=== PATIENT | female | born 1940 | race Caucasian/White ===

== ENCOUNTER → 2019-01-20 15:29 | Outpatient (CLI) | payer MEDICARE, SELFPAY ==
[2019-01-20 19:01] LABS: Campylobacter Not Detected (Not Detect); Clostridium difficile toxin AB Detected (Not Detect); Cryptosporidium Not Detected (Not Detect); Cyclospora cayetanensis Not Detected (Not Detect); Entamoeba histolytica Not Detected (Not Detect); Enteroaggregative E.coli Not Detected (Not Detect); Enteropathogenic E.coli Not Detected (Not Detect); Enterotoxigenic E.coli It/st Not Detected (Not Detect); Plesiomonsa shigelloides Not Detected (Not Detect); Salmonella Not Detected (Not Detect); Shiga-like toxin-prod E.coli Not Detected (Not Detect); Shigella/Enteroinvasive E.coli Not Detected (Not Detect); Vibrio Not Detected (Not Detect); Vibrio cholerae Not Detected (Not Detect); Yersinia enterocolitica Not Detected (Not Detect)
[2019-01-20 19:02] LABS: Adenovirus F 40/41 Not Detected (Not Detect); Astrovirus Not Detected (Not Detect); Giardia lamblia Not Detected (Not Detect); Norovirus GI/GII Not Detected (Not Detect); Rotavirus A Not Detected (Not Detect); Sapovirus Not Detected (Not Detect)
== END ==
PROVIDERS: PCP Nurse Practitioner Family; Visit Provider Nurse Practitioner Family
DX: Z86.19 Personal history of other infectious and parasitic diseases (principal)
CPT/HCPCS: 87045; 87507; 87899

== ENCOUNTER 2019-07-20 19:17 | Emergency (ER) | payer MEDICARE, SELFPAY ==
[2019-07-20 19:24] VITALS: BP 158/81; PULSE 85; RESP 16; TEMP 36.7; O2SAT 94
[2019-07-20] MEDS: AMOXICILLIN/CLAV 875/125 MG 1 TAB PO (19:55)
[2019-07-20 20:16] VITALS: BP 152/84; PULSE 84; RESP 16; O2SAT 97
--- NOTE | 2019-07-20 20:17 | PC.NURSE ---
Pt has a L upper partial that has fallen out and now presents with pain, mouth swelling. afebrile. does not have dentist at this time. evaluated by KAM Tian. medicated per DEC.
--- NOTE | 2019-07-21 00:31 | ED.DENTAL ---
HPI - Dental/Oral <RIA Matson - Last Filed: 07/21/19 00:42> General Chief complaint: Dental/Oral Stated complaint: POSSIBLE INFECTION IN MOUTH Time Seen by Provider: 07/20/19 19:29 Source: patient Mode of arrival: Ambulatory Limitations: no limitations History of Present Illness HPI Narrative: This is a pleasant 78-year-old female, current smoker, who presents to ED with left facial erythema, edema, discomfort for 2 days. Patient reports her partial denture fell out on affected site and reports gum swelling, pain with partial tooth on left upper mouth. Patient denies fever, chills, nausea or vomiting. Patient has been taking Excedrin at home for discomfort along Orajel. Patient does not have dentist currently. Related Data Home Medications Medication Instructions Recorded Confirmed calcium polycarbophil [FiberCon] 2 tab PO BID #0 10/27/16 fluoxetine 30 mg PO QDAY #0 09/01/17 Previous Rx's Medication Instructions Recorded albuterol sulfate [Ventolin HFA] 2 puff INH Q2HP PRN #1 ea 10/28/16 tiotropium bromide [Spiriva with 1 puff INH QDAY #1 ea 10/28/16 HandiHaler] meclizine [Bonine] 1 - 2 tab PO Q8HP PRN #12 12/23/17 ondansetron [Zofran ODT] 4 mg SUBLINGUAL Q6HP PRN #5 odt 12/23/17 amoxicillin-pot clavulanate 1 tab PO BID 7 Days #14 tab 07/20/19 [Augmentin] Review of Systems <RIA Matson - Last Filed: 07/21/19 00:42> Review of Systems ROS Unobtainable: All systems reviewed & are unremarkable except as noted in HPI and below Patient History <RIA Matson - Last Filed: 07/21/19 00:42> Medical History C. difficile diarrhea (Acute) Colitis (Acute) Social History Smoking Status: Current every day smoker Social History Smoking Status: Current every day smoker Substance Use Type: does not use Exam <RIA Matson - Last Filed: 07/21/19 00:42> Narrative Exam Narrative: General appearance: well developed, well nourished, in no acute distress. Head: normocephalic, atraumatic, no scalp lesions, non-tender. Eye: pupil equal, round. EOMI. Nose: nares patent. Oral: mucosa moist. L side upper gingivitis with erythema, swelling. L upper mouth with dental caries with small partial and a tooth which is discolored in deep yellow. Neck/Thyroid: neck supple, full range of motion, no visible masses. Skin: L side face with moderate edema, erythema and mild warmth to touch. No suspicious rashes, lesions over other visible areas. Warm and dry. Heart: no clubbing, no cyanosis, no edema. Lungs: Breathing even and unlabored. No stridor. No accessory muscles used. Chest: normal shape and expansion. Abdomen: non-obese, non-distended. Neurologic: alert and oriented. Cognitive exam, PEDIATRICIAN/MEDICAL DOCTOR and PNS grossly intact on informal exam. Psych: good eye contact, normal affect. Initial Vital Signs Initial Vital Signs: Vital Signs Temperature 98.1 F 07/20/19 19:24 Pulse Rate 85 07/20/19 19:24 Respiratory Rate 16 07/20/19 19:24 Blood Pressure 158/81 H 07/20/19 19:24 Pulse Oximetry 94 07/20/19 19:24 <Bhavin Moreno DO - Last Filed: 07/21/19 02:16> Initial Vital Signs Initial Vital Signs: Vital Signs Temperature 98.1 F 07/20/19 19:24 Pulse Rate 85 07/20/19 19:24 Respiratory Rate 16 07/20/19 19:24 Blood Pressure 158/81 H 07/20/19 19:24 Pulse Oximetry 94 07/20/19 19:24 Course <RIA Matson - Last Filed: 07/21/19 00:42> Orders Ordered: Discontinued Medications Amoxicillin/Clavulanate Potassium (Augmentin 875-125 Mg) 1 tab PO NOW ONE Stop: 07/20/19 19:48 Last Admin: 07/20/19 19:55 Dose: 1 tab Documented by: TEREZA Vital Signs Vital signs: Vital Signs - 8 hr 07/20/19 19:24 07/20/19 20:16 Temperature 98.1 F Pulse Rate 85 84 Respiratory Rate 16 16 Blood Pressure 152/84 H Blood Pressure [Right Arm] 158/81 H Pulse Oximetry 94 97 <Bhavin Moreno DO - Last Filed: 07/21/19 02:16> Orders Ordered: Discontinued Medications Amoxicillin/Clavulanate Potassium (Augmentin 875-125 Mg) 1 tab PO NOW ONE Stop: 07/20/19 19:48 Last Admin: 07/20/19 19:55 Dose: 1 tab Documented by: TEREZA Vital Signs Vital signs: Vital Signs - 8 hr 07/20/19 19:24 07/20/19 20:16 Temperature 98.1 F Pulse Rate 85 84 Respiratory Rate 16 16 Blood Pressure 152/84 H Blood Pressure [Right Arm] 158/81 H Pulse Oximetry 94 97 MDM - Dental/Oral <Jaylan ChavezRIA Gotti - Last Filed: 07/21/19 00:42> Differential Diagnosis Differential diagnosis: Likely gingival abscess, dental caries, dental abscess and fracture of tooth Medical Records Attestation: I reviewed the patient's medical records. MDM Narrative Medical decision making narrative: This is a pleasant 78-year-old female who presents to ED with odontogenic infection in right upper mouth with right-sided facial swelling, redness and warmth for last 2 days. Patient does not have constitutional symptoms. Patient was medicated with 1st dose of Augmentin while in ED which patient family member prefers to take over penicillin 4 times a day. Patient was discharged to home with the remaining does for 7 day course. The patient's granddaughter states will find a dentist to follow up for an evaluation. Return precautions were discussed with the patient verbalized understanding. Patient and granddaughter agrees with the treatment plan. Discharge Plan Departure Patient Disposition: Home Clinical Impression: Dental infection Discharge Date/Time: 07/20/19 20:16 Instructions: DI for Tooth Decay Activity Restrictions/Additional Instructions: You have been diagnosed with [odontogenic infection ]. What to do: *Take your medications as directed. Please take antibiotic medication twice a day for next 7 days. Please incorporate probiotics while on antibiotic medication. *Follow up with your dentist in 2-3 days, call for an appointment. Let them know you were seen in the ED and that we asked you to be seen in follow up. *Return to ED if you have any new, worsening, or concerning symptoms, such as [worsening pain, fever, swelling and redness spreading to her face, breathing difficulty, chest pain, nausea/vomiting/diarrhea or any acute concerns]. Prescriptions: New amoxicillin-pot clavulanate [Augmentin] 875-125 mg tablet 1 tab PO BID 7 Days Qty: 14 RF: 0 No Action calcium polycarbophil [FiberCon] 625 MG tablet 2 tab PO BID Qty: 0 RF: 0 albuterol sulfate [Ventolin HFA] 90 MCG/PUFF HFA aerosol inhaler 2 puff INH Q2HP PRNQty: 1 RF: 0 tiotropium bromide [Spiriva with HandiHaler] 18 MCG capsule, w/inhalation device 1 puff INH QDAY Qty: 1 RF: 0 fluoxetine 10 MG tablet 30 mg PO QDAY Qty: 0 RF: 0 meclizine [Bonine] 25 MG tablet,chewable 1 - 2 tab PO Q8HP PRNQty: 12 RF: 0 ondansetron [Zofran ODT] 4 MG tablet,disintegrating 4 mg Sublingual Q6HP PRNQty: 5 RF: 0 Referrals: [facility] [Provider Group] Clarisse Ontiveros ARNP [Primary Care Provider] -
== END 2019-07-20 20:16 | disposition home or self-care (01) ==
PROVIDERS: Emergency Provider Nurse Practitioner Family; Family Provider Nurse Practitioner Family; PCP Nurse Practitioner Family
DX: K04.7 Periapical abscess without sinus (principal)
CPT/HCPCS: 99282; 99283

== ENCOUNTER → 2021-12-09 11:42 | Outpatient (CLI) | payer MEDICARE, SELFPAY ==
--- NOTE | 2021-12-09 11:44 | DI.RAD.S_ITS ---
PROCEDURE: XR SACRUM COCCYX MIN 2V INDICATIONS: low back pain TECHNIQUE: 3 views of the sacrum and coccyx acquired. COMPARISON: None. FINDINGS: Bones: No fractures or dislocations. No suspicious bony lesions. Degenerative arthropathy noted in the lower lumbosacral spine Soft tissues: Visualized bowel gas pattern is normal. No suspicious soft tissue densities. Atherosclerotic vascular calcification noted. IMPRESSION: Degenerative arthropathy without fracture or lytic lesion. Approved by: Richard Spaulding M.D. on 12/09/2021 at 11:53
--- NOTE | 2021-12-09 11:44 | DI.RAD.S_ITS ---
PROCEDURE: XR LUMBAR SPINE 2-3V INDICATIONS: low back pain TECHNIQUE: 3 views of the lumbar spine were acquired. COMPARISON: [facility], , L-SPINE 2-3 VIEWS, 03/29/2007, 15:41. FINDINGS: Bones: Vertebral body height is maintained. Normal bone mineralization. Hypertrophic facet joints present throughout the exam results in grade 1 anterior spondylolisthesis at L4-5, increased from the prior. Moderate disc space narrowing in the mid lumbar spine noted. Convex right thoracolumbar scoliosis present. Soft tissues: Overlying bowel gas pattern is normal. No suspicious soft tissue calcifications. Atherosclerotic calcification in the abdominal aorta noted without evidence of aneurysm. IMPRESSION: Degenerative disc disease and arthropathy results in grade 1 anterior spondylolisthesis at L4-5 and thoracolumbar dextroscoliosis, increased from the prior Approved by: Richard Spaulding M.D. on 12/09/2021 at 11:33
== END ==
PROVIDERS: Family Provider Nurse Practitioner Family; PCP Student in an Organized Health Care Education/Training Program; Referring Provider Nurse Practitioner Family; Visit Provider Nurse Practitioner Family
DX: M51.36 Other intervertebral disc degeneration, lumbar region (principal); M47.816 Spondylosis without myelopathy or radiculopathy, lumbar region; M47.817 Spondylosis without myelopathy or radiculopathy, lumbosacral region; M43.16 Spondylolisthesis, lumbar region; M41.85 Other forms of scoliosis, thoracolumbar region; M54.50 Low back pain, unspecified
CPT/HCPCS: 72100; 72220

== ENCOUNTER 2022-02-21 10:36 | Inpatient (IN) | payer MEDICARE, SELFPAY ==
[2022-02-21] VITALS (28 sets, daily range): BP systolic 123–192; BP diastolic 50–112; PULSE 82–97; RESP 14–53; TEMP 36.6–36.8; O2SAT 87–97; BMI 17.2; BMI 17.6
--- NOTE | 2022-02-21 11:02 | ED_ITS ---
HPI - SOB/Dyspnea General Chief Complaint: Shortness of Breath/Dyspnea Stated Complaint: COPD/ Pneumonia 2 WEEKS AGO SOB Time Seen by Provider: 02/21/22 10:49 History of Present Illness HPI Narrative: Patient is a 81-year-old female history of COPD she has oxygen at home as needed, presents today with increasing shortness of breath. She was diagnosed with pneumonia at her primary care provider's office on 01/31/2022 she was put on 10 days of Levaquin. She says she finished her course antibiotics and was feeling better. However throughout the night last night she had increasing sh ortness of breath and difficulty breathing. It is significantly worse with exertion. She does continue to have a cough. She has had low-grade fever of 100. She denies any orthopnea. She is having some chest tightness, and it goes through to her back. Related Data Home Medications Medication Instructions Recorded Confirmed calcium polycarbophil 625 mg 2 tab PO BID #0 10/27/16 12/09/21 tablet (FiberCon) fluoxetine 10 mg tablet 30 mg PO QDAY #0 09/01/17 12/09/21 aspirin 81 mg tablet,delayed 81 mg PO DAILY 12/09/21 12/09/21 release (Adult Aspirin Regimen) omeprazole 20 mg capsule,delayed 20 mg PO DAILY 12/09/21 12/09/21 release rosuvastatin 5 mg tablet 5 mg PO DAILY 12/09/21 12/09/21 Previous Rx's Medication Instructions Recorded albuterol sulfate 90 mcg/actuation 2 puff INH Q2HP PRN #1 ea 10/28/16 aerosol inhaler (Ventolin HFA) tiotropium bromide 18 mcg capsule 1 puff INH QDAY #1 ea 10/28/16 with inhalation device (Spiriva with HandiHaler) meclizine 25 mg chewable tablet 1 - 2 tab PO Q8HP PRN #12 12/23/17 (Bonine) ondansetron 4 mg disintegrating 4 mg SUBLINGUAL Q6HP PRN #5 odt 12/23/17 tablet (Zofran ODT) Allergies Allergy/AdvReac Type Severity Reaction Status Date / Time No Known Drug Allergies Allergy Unverified 12/09/21 11:21 Review of Systems Review of Systems Narrative: GENERAL: Denies chills, fatigue, malaise, fever, sweats, travel HEENT: Denies sinus pain, ear pain, sore throat, difficulty swallowing, neck pain RESPIRATORY: See HPI CARDIOVASCULAR: See HPI GASTROINTESTINAL: Denies nausea, vomiting, abdominal pain, diarrhea, constipation, melena. : Denies dysuria, frequency, incontinence, hematuria, urinary retention, flank pain. MUSCULOSKELETAL: Denies weakness, joint pain, or bony pain SKIN: No rash, no erythema, no pruritus NEUROLOGIC: Denies weakness, dizziness, headache, numbness, change in speech, confusion PSYCHIATRIC: No concerning psychosocial issues. 12 point review of systems is negative except for those stated above and HPI Patient History Medical History C. difficile diarrhea Colitis Social History household members: family Smoking Status: Current every day smoker alcohol intake: current Smoking Status: Current every day smoker Substance Use Type: does not use Exam Initial Vital Signs Initial Vital Signs: Vital Signs Temperature 98.3 F 02/21/22 10:36 Pulse Rate 90 02/21/22 10:36 Respiratory Rate 18 02/21/22 10:36 Blood Pressure 123/63 02/21/22 10:36 Pulse Oximetry 88 L 02/21/22 10:36 GENERAL: Thin 81-year-old female [id number] respiratory distress HEENT: Head atraumatic,EOMI, pupils reactive, face symmetric, moist mucous mem branes CARDIOVASCULAR: Regular rate and rhythm without murmurs, rubs or gallops. RESPIRATORY: Mild tachypnea decreased breath sounds bilaterally no wheezing or rales ABDOMEN: Soft, nontender. Normoactive bowel sounds all 4 quadrants. No guarding or rebound. EXTREMITIES: Normal range of motion, no clubbing or edema. Neurovascularly intact NEUROLOGICAL: Alert and oriented x4.Normal gait and speech. SKIN: Warm, dry, no laceration, no petechiae, no rashes or lesions. Course Orders Ordered: ED Orders 02/21/22 11:03 XR chest 1V Stat EKG-12 Lead Stat 02/21/22 11:05 Blood Culture Stat 02/21/22 13:10 Respiratory Panel (Film Array) Stat Acetaminophen (Acetaminophen 325 Mg Tablet) 650 mg PO Q6HR PRN PRN Reason: Fever Al Hydrox/Mg Hydrox/Simethicone (Mag Hydrox/Alum/Simeth 30 Ml Udc) 30 ml PO Q6HR PRN PRN Reason: Dyspepsia Albuterol (Albuterol 2.5 Mg/3 Ml Neb (Adult)) 2.5 mg INH [id number] PRN PRN Reason: Shortness Of Breath Azithromycin (Azithromycin 250 Mg Tablet) 250 mg PO DAILY [facility] Stop: 02/25/22 17:00 Bisacodyl (Bisacodyl 10 Mg Supp) 10 mg HI DAILY PRN PRN Reason: Constipation Calcium Carbonate (Calcium Carbonate 500 Mg Tab) 1,000 mg PO Q4HR PRN PRN Reason: Dyspepsia Docusate Sodium (Docusate 100 Mg Capsule) 100 mg PO BID [facility] Enoxaparin Sodium (Enoxaparin 40 Mg/0.4 Ml Syringe) 40 mg SUBCUT DAILY [facility] Fluoxetine HCl (Fluoxetine 20 Mg Capsule) 40 mg PO DAILY [facility] Gabapentin (Gabapentin 100 Mg Capsule) 100 mg PO BEDTIME [facility] Ceftriaxone Sodium 1,000 mg/ (Sodium Chloride) 100 mls @ 200 mls/hr IV Q24H [facility] Ibuprofen (Ibuprofen 600 Mg Tablet) 600 mg PO Q8HR PRN PRN Reason: Pain, Mild (1-3) Magnesium Hydroxide (Magnesium Hydroxide 30 Ml Udc) 30 ml PO DAILY PRN PRN Reason: Constipation Methylprednisolone (Methylprednisolone 125 Mg/2 Ml Vial) 60 mg IV Q8H [facility] Naloxone HCl (Naloxone 0.4 Mg/Ml Vial) 0.2 mg IV Q2MIN PRN PRN Reason: Opiate Reversal Ondansetron HCl (Ondansetron 4 Mg Odt) 4 mg PO Q8HR PRN PRN Reason: Nausea And Vomiting Ondansetron HCl (Ondansetron 4 Mg/2 Ml Inj) 4 mg IV Q8HR PRN PRN Reason: Nausea And Vomiting Pantoprazole Sodium (Pantoprazole Dr 20 Mg Tablet) 20 mg PO 0600 [facility] Sennosides (Sennosides 8.6 Mg Tablet) 17.2 mg PO BEDTIME [facility] Tramadol HCl (Tramadol 50 Mg Tablet) 50 mg PO Q4H PRN PRN Reason: Pain, Moderate (4-6) Discontinued Medications Albuterol (Albuterol 2.5 Mg/3 Ml Neb (Adult)) 2.5 mg INH NOW ONE Stop: 02/21/22 12:46 Last Admin: 02/21/22 13:15 Dose: 2.5 mg Documented by: JAYY Albuterol/Ipratropium (Albuterol/Ipratropium 3 Ml Ampul) 3 ml INH NOW ONE Stop: 02/21/22 11:04 Last Admin: 02/21/22 11:23 Dose: 3 ml Documented by: EVERETT Ceftriaxone Sodium 2,000 mg/ (Sodium Chloride) 100 mls @ 200 mls/hr IV NOW ONE Stop: 02/21/22 13:27 Last Infusion: 02/21/22 14:35 Dose: 0 mls/hr Documented by: Admin: 02/21/22 13:38 Dose: 200 mls/hr Documented by: BERTHAXTO Azithromycin 500 mg/ Dextrose 250 mls @ 250 mls/hr IV NOW ONE Stop: 02/21/22 13:27 Last Infusion: 02/21/22 15:00 Dose: 0 mls/hr Documented by: Admin: 02/21/22 13:37 Dose: 250 mls/hr Documented by: BERTHAXTO Sodium Chloride (Normal Saline 0.9%) 1,000 mls @ 125 mls/hr IV CONT SHAI Last Infusion: 02/21/22 18:33 Dose: 0 mls/hr Documented by: Admin: 02/21/22 13:40 Dose: 125 mls/hr Documented by: BERTHAXTO Methylprednisolone (Methylprednisolone 125 Mg/2 Ml Vial) 125 mg IV NOW ONE Stop: 02/21/22 11:04 Last Admin: 02/21/22 11:26 Dose: 125 mg Documented by: YUE Vital Signs Vital signs: Vital Signs - 8 hr 02/21/22 12:00 02/21/22 12:30 02/21/22 13:00 Pulse Rate 85 86 86 Respiratory Rate 24 26 H 26 H Blood Pressure 138/90 135/60 137/63 Pulse Oximetry 93 94 91 02/21/22 13:14 02/21/22 13:15 02/21/22 13:17 Pulse Rate 90 90 Respiratory Rate 24 24 Blood Pressure Pulse Oximetry 87 L 87 L 94 02/21/22 13:30 Pulse Rate 85 Respiratory Rate 23 Blood Pressure 133/60 Pulse Oximetry 95 MDM - SOB/Dyspnea Lab Data Result diagrams: 02/21/22 10:36 02/21/22 10:36 Labs: Lab Results 02/21/22 02/21/22 02/21/22 Range/Units 10:36 10:36 10:36 WBC 19.4 H (4.5-11.0) X10^3/uL RBC 4.00 (4.0-5.2) X10^6/uL Hgb 12.6 (12.0-16.0) g/dL Hct 36.8 (36-46) % MCV 91.9 (80-100) fL MCH 31.5 (26-34) PG MCHC 34.3 (30-36) % RDW 13.2 (11.6-14.8) % Plt Count 213 (150-400) X10^3/uL Neut % (Auto) 87.9 H (50-75) % Lymph % (Auto) 8.1 L (25-40) % [place] % (Auto) 3.8 (3-14) % Eos % (Auto) 0.0 L (2-4) % Baso % (Auto) 0.2 (0-2) % Neut # (Auto) 93213 H (6719-4425) /uL Lymph # (Auto) 1600 (2380-9465) /uL [place] # (Auto) 700 (0-900) /uL Eos # (Auto) 0 (0-450) /uL Baso # (Auto) 0 (0-100) /uL Sodium 135 L (137-145) mmol/L Potassium 3.7 (3.4-5.1) mmol/L Chloride 104 (98-107) mmol/L Carbon Dioxide 25 (22-32) mmol/L BUN 16 (7-17) mg/dL Creatinine 0.51 L (0.52-1.04) mg/dL Estimated GFR > 60 (>60) mL/min BUN/Creatinine Ratio 31.4 H (6-22) Glucose 113 H (80-110) mg/dL Lactate 1.6 (0.7-2.1) mmol/L Calcium 9.3 (8.4-10.2) mg/dL Total Bilirubin 0.8 (0.2-1.3) mg/dL AST 28 (14-36) IU/L ALT 17 (<35) IU/L Alkaline Phosphatase 71 (38-126) U/L Total Creatine Kinase 21 L (30-135) U/L CK-MB (CK-2) TNP CK-MB (CK-2) Rel Index TNP Troponin I < 0.012 (0.01-0.034) ng/mL NT-Pro-B Natriuret Pep 247 (<450) pg/mL Total Protein 6.7 (6.3-8.2) g/dL Albumin 4.0 (3.5-5.0) g/dL Globulin 2.7 (1.7-4.1) g/dL Albumin/Globulin Ratio 1.5 (1.0-2.8) Lipase 16 L (23-300) U/L Procalcitonin (<0.5) ng/mL Chlamy pneumoniae PCR (Not Detect) Adenovirus (PCR) (Not Detect) B. pertussis DNA (PCR) (Not Detecte) B.parapertussis DNA PCR (Not Detecte) Coronavirus OC43 (PCR) (Not Detect) Coronavirus HKU1 (PCR) (Not Detect) Coronavirus 229E (PCR) (Not Detect) SARS-CoV-2 (PCR) (Negative) Coronavirus NL63 (PCR) (Not Detect) Human Metapneumovir PCR (Not Detect) Influenza Type A (PCR) (Not Detect) Influenza Type B (PCR) (Not Detect) M. pneumoniae (PCR) (Not Detect) Parainfluenza 1 (PCR) (Not Detect) Parainfluenza 2 (PCR) (Not Detect) Parainfluenza 3 (PCR) (Not Detect) Parainfluenza 4 (PCR) (Not Detect) RSV (PCR) (Not Detect) Entero/Rhino (PCR) (Not Detect) 02/21/22 02/21/22 02/21/22 Range/Units 10:36 10:52 13:10 WBC (4.5-11.0) X10^3/uL RBC (4.0-5.2) X10^6/uL Hgb (12.0-16.0) g/dL Hct (36-46) % MCV (80-100) fL MCH (26-34) PG MCHC (30-36) % RDW (11.6-14.8) % Plt Count (150-400) X10^3/uL Neut % (Auto) (50-75) % Lymph % (Auto) (25-40) % [place] % (Auto) (3-14) % Eos % (Auto) (2-4) % Baso % (Auto) (0-2) % Neut # (Auto) (4780-3370) /uL Lymph # (Auto) (6960-8622) /uL [place] # (Auto) (0-900) /uL Eos # (Auto) (0-450) /uL Baso # (Auto) (0-100) /uL Sodium (137-145) mmol/L Potassium (3.4-5.1) mmol/L Chloride (98-107) mmol/L Carbon Dioxide (22-32) mmol/L BUN (7-17) mg/dL Creatinine (0.52-1.04) mg/dL Estimated GFR (>60) mL/min BUN/Creatinine Ratio (6-22) Glucose (80-110) mg/dL Lactate (0.7-2.1) mmol/L Calcium (8.4-10.2) mg/dL Total Bilirubin (0.2-1.3) mg/dL AST (14-36) IU/L ALT (<35) IU/L Alkaline Phosphatase (38-126) U/L Total Creatine Kinase (30-135) U/L CK-MB (CK-2) CK-MB (CK-2) Rel Index Troponin I (0.01-0.034) ng/mL NT-Pro-B Natriuret Pep (<450) pg/mL Total Protein (6.3-8.2) g/dL Albumin (3.5-5.0) g/dL Globulin (1.7-4.1) g/dL Albumin/Globulin Ratio (1.0-2.8) Lipase (23-300) U/L Procalcitonin 0.33 (<0.5) ng/mL Chlamy pneumoniae PCR Not detected (Not Detect) Adenovirus (PCR) Not detected (Not Detect) B. pertussis DNA (PCR) Not detected (Not Detecte) B.parapertussis DNA PCR Not detected (Not Detecte) Coronavirus OC43 (PCR) Not detected (Not Detect) Coronavirus HKU1 (PCR) Not detected (Not Detect) Coronavirus 229E (PCR) Not detected (Not Detect) SARS-CoV-2 (PCR) Negative Not detected (Negative) Coronavirus NL63 (PCR) Not detected (Not Detect) Human Metapneumovir PCR Detected H (Not Detect) Influenza Type A (PCR) Not detected (Not Detect) Influenza Type B (PCR) Not detected (Not Detect) M. pneumoniae (PCR) Not detected (Not Detect) Parainfluenza 1 (PCR) Not detected (Not Detect) Parainfluenza 2 (PCR) Not detected (Not Detect) Parainfluenza 3 (PCR) Not detected (Not Detect) Parainfluenza 4 (PCR) Not detected (Not Detect) RSV (PCR) Not detected (Not Detect) Entero/Rhino (PCR) Not detected (Not Detect) Imaging Data Chest x-ray: Radiologist's Impression: Signed Patient: Dena Stock MR#: [id number] : 1940 Acct:[id number] Age/Sex: 81 / F Date of Service: 02/21/22 Loc: Accession Number: [id number] ?? Procedure: XR chest 1V Ordering Provider: Crista Little D.O. PROCEDURE:? XR CHEST 1V ? INDICATIONS:? short of breath ? TECHNIQUE:? One view of the chest was acquired.? ? COMPARISON:? [facility] , CHEST [facility] V[facility], 12[facility]23/2017, 10:22[facility] 12:08. ? FINDINGS:? ? Surgical changes and devices:? None.? ? Lungs and pleura:? Interstitial prominence at the inferior lungs.? Prominent lung volumes.? Mild bibasilar hazy opacity.? No pleural effusions or pneumothorax.? ? Mediastinum:? Mediastinal contours appear normal.? Heart size is normal.? ? Bones and chest wall:? No suspicious bony lesions.? Overlying soft tissues appear unremarkable.? ? IMPRESSION:? Initial prominence most pronounced at the lower lobes.? This appears similar to the prior exams.? This could be due to interstitial lung disease or emphysematous change.? Suspect mild superimposed atelectasis. ? ? Dictated by: Niles Zhang M.D. on 02/21/2022 at 11:30 ? ? Approved by: Niles Zhang M.D. on 02/21/2022 at 11:32 ? ECG Data Interpretation: Normal sinus rhythm no ST changes similar to previous EKG in 2018. MDM Narrative Medical decision making narrative: Patient is initially tachypneic. She improves with albuterol. Attempted ambulation trial however just standing up from the bed her O2 dropped to 87%. She just finished a course of antibiotics last week of Levaquin for 10 days and continues to have leukocytosis. On the 31 of January she was prescribed 5 days of prednisone this is unlikely to be related to the prednisone. Respiratory panel is positive for human metapneumovirus. Due to increased need for oxygen and not having oxygen at home will need to be admitted for COPD exacerbation. Patient improved with albuterol history of COPD likely to be COPD exacerbation. Troponin and BNP are negative. Unlikely pulmonary embolism Discharge Plan Departure Patient Disposition: Admitted As Inpatient Clinical Impression: COPD exacerbation Admit Date/Time: 02/21/22 13:37 Admit Provider: Maria Luisa Allen
--- NOTE | 2022-02-21 11:03 | DI.RAD.S_ITS ---
PROCEDURE: XR CHEST 1V INDICATIONS: short of breath TECHNIQUE: One view of the chest was acquired. COMPARISON: [facility], CHEST 1 VIEW, 12/23/2017, 10:22. [facility], CHEST 2 VIEW, 09/01/2017, 12:08. FINDINGS: Surgical changes and devices: None. Lungs and pleura: Interstitial prominence at the inferior lungs. Prominent lung volumes. Mild bibasilar hazy opacity. No pleural effusions or pneumothorax. Mediastinum: Mediastinal contours appear normal. Heart size is normal. Bones and chest wall: No suspicious bony lesions. Overlying soft tissues appear unremarkable. IMPRESSION: Initial prominence most pronounced at the lower lobes. This appears similar to the prior exams. This could be due to interstitial lung disease or emphysematous change. Suspect mild superimposed atelectasis. Dictated by: Niles Zhang M.D. on 02/21/2022 at 11:30 Approved by: Niles Zhang M.D. on 02/21/2022 at 11:32
[2022-02-21 11:12] LABS: COVID19 -Nasal RAPID Negative (Negative)
[2022-02-21] MEDS: ALBUTEROL/IPRATROPIUM 3 ML AMPUL INH (11:23)
[2022-02-21] MEDS: methylPREDNISolone 125 MG/2 ML VIAL IV (11:26)
[2022-02-21 11:35] LABS: Add Manual Diff / Slide Review NO; Basophils Absolute Auto 0 /uL (0-100); Basophils Percent Auto 0.2 % (0-2); Eosinophils Absolute Auto 0 /uL (0-450); Hematocrit 36.8 % (36-46); Hemoglobin 12.6 g/dL (12.0-16.0); Lymphocytes Absolute Auto 1600 /uL (1100-4500); Lymphocytes Percent Auto 8.1 % (25-40); Mean Corpuscular HGB Conc 34.3 % (30-36); Mean Corpuscular Hemoglobin 31.5 PG (26-34); Mean Corpuscular Volume 91.9 fL (80-100); Monocytes Absolute Auto 700 /uL (0-900); Monocytes Percent Auto 3.8 % (3-14); Neutrophils Absolute Auto 17100 /uL (1500-7000); Neutrophils Percent Auto 87.9 % (50-75); Platelet Count 213 X10^3/uL (150-400); Red Cell Distribution Width 13.2 % (11.6-14.8); White Blood Cell Count 19.4 X10^3/uL (4.5-11.0)
[2022-02-21 11:47] LABS: Alanine Aminotransferase 17 IU/L (<35); Albumin Globulin Ratio 1.5 (1.0-2.8); Alkaline Phosphatase 71 U/L (38-126); Aspartate Aminotransferase 28 IU/L (14-36); BUN Creatinine Ratio 31.4 (6-22); Bilirubin Total 0.8 mg/dL (0.2-1.3); Blood Urea Nitrogen 16 mg/dL (7-17); Calcium 9.3 mg/dL (8.4-10.2); Carbon Dioxide 25 mmol/L (22-32); Chloride 104 mmol/L (98-107); Creatine Kinase 21 U/L (30-135); Estimated Glomerular Filt Rate > 60 mL/min (>60); Globulin 2.7 g/dL (1.7-4.1); Glucose 113 mg/dL (80-110); HEMOLYSIS < 15 (0-50); Lipase 16 U/L (23-300); Potassium 3.7 mmol/L (3.4-5.1); Sodium 135 mmol/L (137-145); Total Protein 6.7 g/dL (6.3-8.2)
[2022-02-21 11:59] LABS: NT-proBNP (BNP-Adult 18+) 247 pg/mL (<450); Troponin I < 0.012 ng/mL (0.01-0.034)
--- NOTE | 2022-02-21 12:12 | PC.NURSE ---
resp reassessed after treatment, lung sounds improved, pt more relaxed
[2022-02-21 12:25] LABS: Lactate (Lactic Acid) 1.6 mmol/L (0.7-2.1)
[2022-02-21 12:42] LABS: Procalcitonin 0.33 ng/mL (<0.5)
[2022-02-21] MEDS: ALBUTEROL 2.5 MG/3 ML NEB (ADULT) INH ×2 (13:15→20:26)
--- NOTE | 2022-02-21 13:16 | PC.NURSE ---
desaturation off oxygen to simply stand at side of bed 1 step only taken. returned to bed and placed back on nc 1lpm, GENERAL MERCHANDISE MANAGER at bs to give repeat breathing treatment
[2022-02-21] MEDS: AZITHROMYCIN 500 MG in DEXTROSE 5% IN WATER 250 ML 250 MG IV (13:37)
[2022-02-21] MEDS: cefTRIAXone 2,000 MG in SODIUM CHLORIDE 0.9% 100 ML 200 MG IV (13:38)
[2022-02-21] MEDS: SODIUM CHLORIDE 0.9% 1,000 ML 125 ML IV (13:40)
[2022-02-21 14:55] LABS: Adenovirus Not Detected (Not Detect); B. parapertussis Not Detected (Not Detecte); Bordetella pertussis Not Detected (Not Detecte); Chlamydophila pneumoniae Not Detected (Not Detect); Coronavirus 229E Not Detected (Not Detect); Coronavirus HKU1 Not Detected (Not Detect); Coronavirus NL 63 Not Detected (Not Detect); Coronavirus OC43 Not Detected (Not Detect); Human Metapneumovirus Detected (Not Detect); Human Rhinovirus/Enterovirus Not Detected (Not Detect); Influenza A Not Detected (Not Detect); Influenza B Not Detected (Not Detect); Mycoplasma pneumoniae Not Detected (Not Detect); Parainfluenza Virus 1 Not Detected (Not Detect); Parainfluenza Virus 2 Not Detected (Not Detect); Parainfluenza Virus 3 Not Detected (Not Detect); Parainfluenza Virus 4 Not Detected (Not Detect); Respiratory Syncytial Virus Not Detected (Not Detect); SARS- CoV-2 Not Detected (Not Detecte)
--- NOTE | 2022-02-21 19:01 | P.HP_ITS ---
History of Present Illness History of Present Illness Date Patient Seen: 02/21/22 Time Patient Seen: 19:01 Date of Onset of Symptoms: 01/31/22 Chief complaint: COPD/ Pneumonia 2 WEEKS AGO SOB Narrative: This is a very pleasant 81-year-old female who resides on her own in an apartment here in [facility]. She sees Dr. Allen for her primary care physician. Her most significant past medical problem is that of COPD and continued tobacco abuse. She smokes a little bit less than a pack a day. She developed progressive cough and symptoms and was seen in the clinic January 31. She was treated with Levaquin for 10 days and prednisone for 5 days. She feels that her symptoms improved. She then has had worsening symptoms over the last several days that progressed and she was significantly short of breath that she presented to the emergency department and was found to have O2 sats on room air in the upper 80s. Workup revealed that she was COVID negative without clear evidence of abnormal findings on her chest x-ray other than chronic COPD changes. She was found to have elevated white blood cell count and then subsequently was found to be positive for adenovirus and human meta pneumo virus. She was treated with IV Solu-Medrol and azithromycin and ceftriaxone. She was given supplemental oxygen and she is feeling better with nebulizer treatment as well. Patient also has been struggling with some left hip pain and back pain for which she was given gabapentin in the evening but it was a short time dosage and she is still having symptoms. I provided some relief. Past medical history: 1. COPD 2. Tobacco abuse 3. Hyperlipidemia 4. Impaired fasting glucose 5. Depression and anxiety 6. Spondylolisthesis 7. GERD Past surgical history: 1. Appendectomy 2. Cholecystectomy 3. Tonsillectomy Family history Mother from colon cancer Patient has a sibling with brain cancer Social history Patient is a . 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 She has lived in a [facility] since [facility]. She has 3 children. She has many grandchildren and great grandchildren. She lives alone in apartment here in [facility] a [facility] but is surrounded by family members including great grand children who live above her. Her granddaughter is an emergency room nurse. Patient History Medical History C. difficile diarrhea Colitis Family & Social History Safety & Behavioral: Feels Safe in Current Yes Environment Been Physically Hurt or No Threatened By a Person Tobacco & Substance use: Smoking Status Current every day smoker Substance Use Type does not use Meds Home Medications and Allergies Home Medications Medication Instructions Recorded Confirmed Type calcium polycarbophil 625 mg 2 tab PO BID #0 10/27/16 12/09/21 History tablet (FiberCon) albuterol sulfate 90 mcg/actuation 2 puff INH Q2HP PRN #1 ea 10/28/16 12/09/21 Rx aerosol inhaler (Ventolin HFA) tiotropium bromide 18 mcg capsule 1 puff INH QDAY #1 ea 10/28/16 12/09/21 Rx with inhalation device (Spiriva with HandiHaler) fluoxetine 10 mg tablet 30 mg PO QDAY #0 09/01/17 12/09/21 History meclizine 25 mg chewable tablet 1 - 2 tab PO Q8HP PRN #12 12/23/17 12/09/21 Rx (Bonine) ondansetron 4 mg disintegrating 4 mg SUBLINGUAL Q6HP PRN #5 odt 12/23/17 12/09/21 Rx tablet (Zofran ODT) aspirin 81 mg tablet,delayed 81 mg PO DAILY 12/09/21 12/09/21 History release (Adult Aspirin Regimen) omeprazole 20 mg capsule,delayed 20 mg PO DAILY 12/09/21 12/09/21 History release rosuvastatin 5 mg tablet 5 mg PO DAILY 12/09/21 12/09/21 History Allergies Allergy/AdvReac Type Severity Reaction Status Date / Time No Known Drug Allergies Allergy Unverified 12/09/21 11:21 Review of Systems Review of Systems Narrative: Patient declines fever, hemoptysis Patient denies headache Patient has normal bowel movements. No diarrhea or vomiting. No blood. Patient denies any recent weight loss or weight gain Patient has had left hip and leg pain consistent with sciatica. Is been bothering her over the last month. No history of falls. No chest pain. Patient does have chronic cough which has worsened. Negative neurologic symptoms No palpitations 12 point review of systems is otherwise negative other than HPI Exam Vital Signs (past 8 hours): - 02/21/22 11:23 02/21/22 11:30 02/21/22 12:00 Pulse Rate 82 83 85 Respiratory Rate 14 22 24 Blood Pressure 130/59 L 138/90 Pulse Oximetry 94 91 93 02/21/22 12:30 02/21/22 13:00 02/21/22 13:14 Pulse Rate 86 86 90 Respiratory Rate 26 H 26 H 24 Blood Pressure 135/60 137/63 Pulse Oximetry 94 91 87 L 02/21/22 13:15 02/21/22 13:17 02/21/22 13:30 Pulse Rate 90 85 Respiratory Rate 24 23 Blood Pressure 133/60 Pulse Oximetry 87 L 94 95 02/21/22 14:00 02/21/22 14:01 02/21/22 14:30 Pulse Rate 92 H 91 H 85 Respiratory Rate 23 27 H 21 Blood Pressure 166/76 H 128/60 Pulse Oximetry 96 96 96 02/21/22 15:00 02/21/22 15:30 02/21/22 16:00 Pulse Rate 88 97 H 84 Respiratory Rate 24 14 21 Blood Pressure 128/61 129/60 Pulse Oximetry 95 96 96 02/21/22 16:30 02/21/22 17:00 02/21/22 17:30 Pulse Rate 85 82 91 H Respiratory Rate 38 H 21 33 H Blood Pressure 145/70 H 137/62 Pulse Oximetry 94 96 96 02/21/22 17:31 02/21/22 18:00 02/21/22 18:10 Pulse Rate 88 84 85 Respiratory Rate 35 H 32 H 53 H Blood Pressure 192/112 H 124/66 Pulse Oximetry 95 96 95 Oxygen Delivery Method Room Air Oxygen Flow Rate 2 Narrative Exam Narrative: This is a very pleasant 81-year-old female who appears younger than her stated age of 81. She is joking and laughing and quite feisty. She is already bargaining with me to not stay in the hospital very long. Initial blood pressures were quite elevated. She had significant tachypnea. She is currently breathing in the rate of the 30s. Her O2 sats on 2 L nasal cannula are 95%. Blood pressure is 124/66. Patient is alert and oriented x3 HEENT: Mucous membranes moist and pink without any lesions. Neck: Supple without adenopathy, thyromegaly, bruits Chest: Diffuse inspiratory and expiratory wheezes with rhonchi and crackles Cor: Regular rate and rhythm with distant S1-S2 Abdomen: Positive bowel sounds, soft, nontender, nondistended, scaphoid Extremities: No edema, pulses intact Neurologic exam is nonfocal Skin no rashes Objective Labs Result Diagrams: 02/21/22 10:36 02/21/22 10:36 Labs: Laboratory Results - last 24 hr 02/21/22 02/21/22 02/21/22 10:36 10:36 10:36 WBC 19.4 H RBC 4.00 Hgb 12.6 Hct 36.8 MCV 91.9 MCH 31.5 MCHC 34.3 RDW 13.2 Plt Count 213 Neut % (Auto) 87.9 H Lymph % (Auto) 8.1 L [place] % (Auto) 3.8 Eos % (Auto) 0.0 L Baso % (Auto) 0.2 Neut # (Auto) 76886 H Lymph # (Auto) 1600 [place] # (Auto) 700 Eos # (Auto) 0 Baso # (Auto) 0 Sodium 135 L Potassium 3.7 Chloride 104 Carbon Dioxide 25 BUN 16 Creatinine 0.51 L Estimated GFR > 60 BUN/Creatinine Ratio 31.4 H Glucose 113 H Lactate 1.6 Calcium 9.3 Total Bilirubin 0.8 AST 28 ALT 17 Alkaline Phosphatase 71 Total Creatine Kinase 21 L CK-MB (CK-2) TNP CK-MB (CK-2) Rel Index TNP Troponin I < 0.012 NT-Pro-B Natriuret Pep 247 Total Protein 6.7 Albumin 4.0 Globulin 2.7 Albumin/Globulin Ratio 1.5 Lipase 16 L Procalcitonin Chlamy pneumoniae PCR Adenovirus (PCR) B. pertussis DNA (PCR) B.parapertussis DNA PCR Coronavirus OC43 (PCR) Coronavirus HKU1 (PCR) Coronavirus 229E (PCR) SARS-CoV-2 (PCR) Coronavirus NL63 (PCR) Human Metapneumovir PCR Influenza Type A (PCR) Influenza Type B (PCR) M. pneumoniae (PCR) Parainfluenza 1 (PCR) Parainfluenza 2 (PCR) Parainfluenza 3 (PCR) Parainfluenza 4 (PCR) RSV (PCR) Entero/Rhino (PCR) 02/21/22 02/21/22 02/21/22 10:36 10:52 13:10 WBC RBC Hgb Hct MCV MCH MCHC RDW Plt Count Neut % (Auto) Lymph % (Auto) [place] % (Auto) Eos % (Auto) Baso % (Auto) Neut # (Auto) Lymph # (Auto) [place] # (Auto) Eos # (Auto) Baso # (Auto) Sodium Potassium Chloride Carbon Dioxide BUN Creatinine Estimated GFR BUN/Creatinine Ratio Glucose Lactate Calcium Total Bilirubin AST ALT Alkaline Phosphatase Total Creatine Kinase CK-MB (CK-2) CK-MB (CK-2) Rel Index Troponin I NT-Pro-B Natriuret Pep Total Protein Albumin Globulin Albumin/Globulin Ratio Lipase Procalcitonin 0.33 Chlamy pneumoniae PCR Not detected Adenovirus (PCR) Not detected B. pertussis DNA (PCR) Not detected B.parapertussis DNA PCR Not detected Coronavirus OC43 (PCR) Not detected Coronavirus HKU1 (PCR) Not detected Coronavirus 229E (PCR) Not detected SARS-CoV-2 (PCR) Negative Not detected Coronavirus NL63 (PCR) Not detected Human Metapneumovir PCR Detected H Influenza Type A (PCR) Not detected Influenza Type B (PCR) Not detected M. pneumoniae (PCR) Not detected Parainfluenza 1 (PCR) Not detected Parainfluenza 2 (PCR) Not detected Parainfluenza 3 (PCR) Not detected Parainfluenza 4 (PCR) Not detected RSV (PCR) Not detected Entero/Rhino (PCR) Not detected Assessment & Plan Assessment & Plan narrative: 81-year-old female admitted for COPD exacerbation with possible secondary bacterial infection with hypoxemia and acute respiratory failure Assessment 1. Acute respiratory failure suspect COPD exacerbation with positive virus of adenovirus and human metapneumovirus with probable bacterial secondary infection. Plan: Admit to the hospital for further treatment and monitoring. We will provide supplemental oxygen and most likely will provide this on outpatient basis as well. We will continue Solu-Medrol 60 mg q.8 hours. We will continue azithromycin orally and ceftriaxone IV. We will continue outpatient Spiriva and Symbicort. Will continue with albuterol nebulizers and will consult respiratory therapy. Will consult PT and OT as well as discharge planning. Assessment 2. History of GERD Plan: Will provide pantoprazole Assessment 3. Hyperlipidemia Plan: Will continue rosuvastatin Assessment 4. Elevated blood pressure on admit. No history of the same Plan: Will continue monitoring Assessment 5. Lumbar radiculopathy Plan: Will treat with gabapentin in the evening. Steroid should help as well. Consider MRI prior to discharge. Pending how she does. PTE and OT to evaluate Assessment 6. Depression stable Plan: Continue fluoxetine 60 minutes was spent with patient and discussing with her son as well as discussing with the ER physician and nursing staff as well as family member, patient's granddaughter. Reviewed workup and formulated plan and documented Code status is full code Disposition: Anticipate patient will need 2 midnights hospitalization and then will possibly need oxygen on discharge as well as steroid taper and likely will go home with home health. Time Spent With Patient Critical Care time: I spent a total of [] minutes of critical care time on this patient's care today; this time is exclusive of procedural time.
[2022-02-21] MEDS: methylPREDNISolone 125 MG/2 ML VIAL 60 MG IV (21:20)
[2022-02-21] MEDS: GABAPENTIN 100 MG CAPSULE PO (21:21)
[2022-02-21] MEDS: SENNOSIDES 8.6 MG TABLET 17.2 MG PO (21:21)
[2022-02-21] MEDS: DOCUSATE 100 MG CAPSULE PO (21:21)
[2022-02-21] MEDS: diphenhydrAMINE 25 MG TABLET 50 MG PO (22:06)
[2022-02-21] MEDS: ACETAMINOPHEN 325 MG TABLET 650 MG PO (22:06)
[2022-02-21] MEDS: BENZONATATE 100 MG CAPSULE 200 MG PO (22:06)
[2022-02-22 05:12] VITALS: BP 126/59; PULSE 78; RESP 17; TEMP 36.5; O2SAT 94
[2022-02-22] MEDS: methylPREDNISolone 125 MG/2 ML VIAL 60 MG IV ×3 (05:20→21:23)
[2022-02-22] MEDS: PANTOPRAZOLE DR 20 MG TABLET PO (05:21)
[2022-02-22 06:42] LABS: Add Manual Diff / Slide Review NO; Basophils Absolute Auto 0 /uL (0-100); Eosinophils Absolute Auto 0 /uL (0-450); Hematocrit 35.5 % (36-46); Hemoglobin 11.7 g/dL (12.0-16.0); Lymphocytes Absolute Auto 700 /uL (1100-4500); Lymphocytes Percent Auto 3.8 % (25-40); Mean Corpuscular HGB Conc 32.8 % (30-36); Mean Corpuscular Hemoglobin 30.8 PG (26-34); Mean Corpuscular Volume 93.9 fL (80-100); Monocytes Absolute Auto 200 /uL (0-900); Monocytes Percent Auto 1.2 % (3-14); Neutrophils Absolute Auto 17300 /uL (1500-7000); Platelet Count 204 X10^3/uL (150-400); Red Blood Cell Count 3.78 X10^6/uL (4.0-5.2); Red Cell Distribution Width 13.6 % (11.6-14.8); White Blood Cell Count 18.3 X10^3/uL (4.5-11.0)
[2022-02-22 06:52] LABS: Alanine Aminotransferase 16 IU/L (<35); Albumin 3.7 g/dL (3.5-5.0); Albumin Globulin Ratio 1.3 (1.0-2.8); Alkaline Phosphatase 68 U/L (38-126); Aspartate Aminotransferase 26 IU/L (14-36); BUN Creatinine Ratio 36.7 (6-22); Bilirubin Total 0.4 mg/dL (0.2-1.3); Blood Urea Nitrogen 18 mg/dL (7-17); Calcium 8.9 mg/dL (8.4-10.2); Carbon Dioxide 26 mmol/L (22-32); Chloride 106 mmol/L (98-107); Estimated Glomerular Filt Rate > 60 mL/min (>60); Globulin 2.8 g/dL (1.7-4.1); Glucose 160 mg/dL (80-110); HEMOLYSIS < 15 (0-50); Potassium 3.6 mmol/L (3.4-5.1); Sodium 138 mmol/L (137-145); Total Protein 6.5 g/dL (6.3-8.2)
[2022-02-22 07:00] LABS: NT-proBNP (BNP-Adult 18+) 335 pg/mL (<450)
[2022-02-22 07:50] VITALS: BP 149/70; PULSE 79; RESP 18; TEMP 36.6; O2SAT 93
[2022-02-22] MEDS: ENOXAPARIN 40 MG/0.4 ML SYRINGE SUBCUT (08:07)
[2022-02-22] MEDS: DOCUSATE 100 MG CAPSULE PO (08:09)
[2022-02-22] MEDS: FLUoxetine 20 MG CAPSULE 40 MG PO (08:09)
[2022-02-22] MEDS: AZITHROMYCIN 250 MG TABLET PO (08:12)
--- NOTE | 2022-02-22 10:35 | PT.IIE ---
Medical History (Last Updated 02/22/22 @ 11:02 by Maurisio Grant MD) C. difficile diarrhea Colitis COPD (chronic obstructive pulmonary disease) Depression GERD without esophagitis Hyperlipidemia Impaired fasting glucose Smoker unmotivated to quit Spondyloarthritis Physical Therapy Inpatient Evaluation/Re-Eval M1 PT/OT-IP Prior Functional Status Start: 02/22/22 13:30 Freq: NEEDED Status: Active Protocol: Document 02/22/22 13:36 [facility] (Rec: 02/22/22 13:36 [facility] [id number]) Medical Review Prior Functional Status Communication Independent Mobility and Gait Pt states does not use a device and has not had any recent falls. Per pt's daughter has been trying to get her to use a walker. Activities of Daily Living and IADL's Pt states is independent with all ADl, IADL needs and seldom drives but if so locally and has assist for medications and finances. Prior Functional Level (Other details) Pt lives in a house with an upstairs apartment in which her grand daughter lives out of . Pt lives in the house downstairs and states usally someone is around to assist her if needed. Social History Household Members family Living Arrangements House Number of Stairs To Enter/Railing? 3 steps with bilateral wide steps Home Environment High Toilet,Tub/Shower Home Equipment Straight Cane,Hand Held Shower ,Vp Director Of Finance M2 PT-IP Current Condition Start: 02/22/22 13:30 Freq: NEEDED Status: Active Protocol: Document 02/22/22 10:35 AB (Rec: 02/22/22 13:42 AB [id number]) Physical Therapy Current Condition Current Condition Evaluation Date 02/22/22 Treatment Diagnosis COPD exacerbation; difficulty in walking Onset Date 02/21/22 M3 PT-IP Subjective Start: 02/22/22 13:30 Freq: NEEDED Status: Active Protocol: Document 02/22/22 10:35 AB (Rec: 02/22/22 13:42 AB [id number]) Subjective Physical Therapy Visit Type Type Initial Evaluation Visit Start Time 10:35 Visit Stop Time 11:01 Total Visit Minutes 26 Number of INDUSTRIAL [employer]OLLER Visits 0 M4 PT-IP Mobility and Gait Start: 02/22/22 13:30 Freq: NEEDED Status: Active Protocol: Document 02/22/22 10:35 AB (Rec: 02/22/22 13:42 AB [id number]) PT-Bed Mobility Assessment Supine to Sit Supine to Sit Independent Sit to Supine Sit to Supine Independent PT-Transfer Assessment Sit to and From Stand Sit to and from Stand Standby Assistance Equipment Transfer Assistive Device None,Gait Belt Orthotic/Prosthetic Devices or Brace: No Comments Mobility Comments O2 sat at room air: 94%. completed supine to sit mod I. able to sit on EOB SBA. completed sit to stand SBA and ambulated in room ~ 30 ft CGA without AD. presents with unsteady gait with decrease step wideth and length. pt requested to go back to bed. mod I with sit to supine. O2 sat decreased to 87% but increase to 90% in ~ 10 sec. cued for PLB. pt agreed to try a SPC for ambulation tomorrow . requested to just rest for now. call light and table placed within reach. Gait Assessment Gait Gait Assistance Required: Contact Guard Assist,1 Person Assist Distance (Feet) 30 Able to Maintain Weight Bearing Status Yes During Gait Assistive Devices Assistive Device None,Gait Belt Orthotic/Prosthetic Devices or Brace: No Gait Deviations General Gait Pattern Decreased Stride Length, Decreased Feet Clearance,Step- to Gait Factors Limiting Gait Function Factors Limiting Gait Function Decreased Activity Tolerance, Decreased Strength,Poor Balance,Poor Safety Awareness, Respiratory Distress PT-Balance Assessment Sitting Balance and Reactions Static Sitting Balance Ability Good Dynamic Sitting Balance Ability Good Standing Balance and Reactions Static Standing Balance Ability Good Dynamic Standing Balance Ability Fair Device Used without AD M5 PT-IP Objective Assessments Start: 02/22/22 13:30 Freq: NEEDED Status: Active Protocol: Document 02/22/22 10:35 AB (Rec: 02/22/22 13:42 AB [id number]) Orientation Orientation/Cognition Level of Alertness Alert Orientation Name,Place,Situation Safety Awareness Decreased Safety Awareness Memory Description Short Term Impaired Gross Range of Motion Lower Extremity ROM Assessment Within Functional Limits Strength Lower Extremity Strength Assessment Within Functional Limits Muscle Tone Muscle Tone WNL Yes M6 PT-IP Treatment Start: 02/22/22 13:30 Freq: NEEDED Status: Active Protocol: Document 02/22/22 10:35 AB (Rec: 02/22/22 13:42 AB [id number]) Physical Therapy Treatment Education Education Provided Safety M7 PT-IP Assessment and Plan Start: 02/22/22 13:30 Freq: NEEDED Status: Active Protocol: Document 02/22/22 10:35 AB (Rec: 02/22/22 13:42 AB [id number]) PT Summary Assessment and Plan Potential Rehabilitation Potential Good Status of Condition at Evaluation Evolving Summary Impairments Pain,ROM,Strength,Balance, Coordination,Sensation,Tone, Cognition,Bed Mobility, Transfers,Gait,Activity Tolerance Assessment Summary pt requiring CGA with ambulation without AD. will assess ambulation and if appropriate use of SPC for safety. pt plans to go home and stated that she can call her family to assist her if needed. pt will benefit from HHPT. Goals Transfer Goal Independent,Cane Gait Goal Independent,Cane Gait Distance 200 Other Goals improve transfes and ambulation without AD ~ 200 ft Drew up/down 2 steps B rails SBA Days to Meet Goals 10 Frequency of Treatment Frequency Of Treatment Once a Day Treatment Plan Physical Therapy Treatment Plan Bed Mobility Training,Transfer Training,Gait Training, Therapeutic Exercise,Balance Retraining,Discharge Planning, Hot or Cold Pack,Neuromuscular Re-ed,Coordination Retraining Precautions Other Precautions O2 sat Recommendations To Nursing Amount of Assist Needed 1 Person Assist Discharge Recommendations PT Discharge Recommendations Home with Assistance,Home Health Transportation Needs at Discharge Private Vehicle
--- NOTE | 2022-02-22 10:38 | PC.NURSE ---
0800 CB check 152 taken by this FRAMING SPECIALIST
--- NOTE | 2022-02-22 10:55 | P.PN_ITS ---
Subjective Subjective Date Patient Seen: 02/22/22 Time Patient Seen: 10:55 Interval history: Reviewed patient's case with Dr. Carmen last evening. Patient this morning sitting up in bed she is off oxygen she is able to put together full sentences and says she is not anywhere near as dyspneic as she was previously. She has been afebrile. No new complaints Exam Vital Signs (past 8 hours): - 02/22/22 05:12 02/22/22 07:50 Temperature 97.7 F 97.9 F Pulse Rate 78 79 Respiratory Rate 17 18 Blood Pressure 126/59 L 149/70 H Pulse Oximetry 94 93 Oxygen Delivery Method Room Air,Nasal Cannula Oxygen Flow Rate 0 Narrative Exam Narrative: Elderly female in no obvious distress sitting up in hospital bed, gets a little breathless when speaking rapidly HEENT unremarkable Lungs-diminished breath sounds throughout maybe some minor end-expiratory only wheezes Heart-minimally tachycardic regular rate and rhythm Abdomen-benign Objective Labs Result Diagrams: 02/22/22 06:20 02/22/22 06:20 Labs: Laboratory Results - last 24 hr 02/21/22 02/21/22 02/21/22 10:36 10:36 10:36 WBC 19.4 H RBC 4.00 Hgb 12.6 Hct 36.8 MCV 91.9 MCH 31.5 MCHC 34.3 RDW 13.2 Plt Count 213 Neut % (Auto) 87.9 H Lymph % (Auto) 8.1 L [place] % (Auto) 3.8 Eos % (Auto) 0.0 L Baso % (Auto) 0.2 Neut # (Auto) 78416 H Lymph # (Auto) 1600 [place] # (Auto) 700 Eos # (Auto) 0 Baso # (Auto) 0 Sodium 135 L Potassium 3.7 Chloride 104 Carbon Dioxide 25 BUN 16 Creatinine 0.51 L Estimated GFR > 60 BUN/Creatinine Ratio 31.4 H Glucose 113 H Lactate 1.6 Calcium 9.3 Magnesium Total Bilirubin 0.8 AST 28 ALT 17 Alkaline Phosphatase 71 Total Creatine Kinase 21 L CK-MB (CK-2) TNP CK-MB (CK-2) Rel Index TNP Troponin I < 0.012 NT-Pro-B Natriuret Pep 247 Total Protein 6.7 Albumin 4.0 Globulin 2.7 Albumin/Globulin Ratio 1.5 Lipase 16 L Procalcitonin Chlamy pneumoniae PCR Adenovirus (PCR) B. pertussis DNA (PCR) B.parapertussis DNA PCR Coronavirus OC43 (PCR) Coronavirus HKU1 (PCR) Coronavirus 229E (PCR) SARS-CoV-2 (PCR) Coronavirus NL63 (PCR) Human Metapneumovir PCR Influenza Type A (PCR) Influenza Type B (PCR) M. pneumoniae (PCR) Parainfluenza 1 (PCR) Parainfluenza 2 (PCR) Parainfluenza 3 (PCR) Parainfluenza 4 (PCR) RSV (PCR) Entero/Rhino (PCR) 02/21/22 02/21/22 02/21/22 10:36 10:52 13:10 WBC RBC Hgb Hct MCV MCH MCHC RDW Plt Count Neut % (Auto) Lymph % (Auto) [place] % (Auto) Eos % (Auto) Baso % (Auto) Neut # (Auto) Lymph # (Auto) [place] # (Auto) Eos # (Auto) Baso # (Auto) Sodium Potassium Chloride Carbon Dioxide BUN Creatinine Estimated GFR BUN/Creatinine Ratio Glucose Lactate Calcium Magnesium Total Bilirubin AST ALT Alkaline Phosphatase Total Creatine Kinase CK-MB (CK-2) CK-MB (CK-2) Rel Index Troponin I NT-Pro-B Natriuret Pep Total Protein Albumin Globulin Albumin/Globulin Ratio Lipase Procalcitonin 0.33 Chlamy pneumoniae PCR Not detected Adenovirus (PCR) Not detected B. pertussis DNA (PCR) Not detected B.parapertussis DNA PCR Not detected Coronavirus OC43 (PCR) Not detected Coronavirus HKU1 (PCR) Not detected Coronavirus 229E (PCR) Not detected SARS-CoV-2 (PCR) Negative Not detected Coronavirus NL63 (PCR) Not detected Human Metapneumovir PCR Detected H Influenza Type A (PCR) Not detected Influenza Type B (PCR) Not detected M. pneumoniae (PCR) Not detected Parainfluenza 1 (PCR) Not detected Parainfluenza 2 (PCR) Not detected Parainfluenza 3 (PCR) Not detected Parainfluenza 4 (PCR) Not detected RSV (PCR) Not detected Entero/Rhino (PCR) Not detected 02/22/22 02/22/22 06:20 06:20 WBC 18.3 H RBC 3.78 L Hgb 11.7 L Hct 35.5 L MCV 93.9 MCH 30.8 MCHC 32.8 RDW 13.6 Plt Count 204 Neut % (Auto) 95.0 H Lymph % (Auto) 3.8 L [place] % (Auto) 1.2 L Eos % (Auto) 0.0 L Baso % (Auto) 0.0 Neut # (Auto) 23396 H Lymph # (Auto) 700 L [place] # (Auto) 200 Eos # (Auto) 0 Baso # (Auto) 0 Sodium 138 Potassium 3.6 Chloride 106 Carbon Dioxide 26 BUN 18 H Creatinine 0.49 L Estimated GFR > 60 BUN/Creatinine Ratio 36.7 H Glucose 160 H Lactate Calcium 8.9 Magnesium 2.0 Total Bilirubin 0.4 AST 26 ALT 16 Alkaline Phosphatase 68 Total Creatine Kinase CK-MB (CK-2) CK-MB (CK-2) Rel Index Troponin I NT-Pro-B Natriuret Pep 335 Total Protein 6.5 Albumin 3.7 Globulin 2.8 Albumin/Globulin Ratio 1.3 Lipase Procalcitonin Chlamy pneumoniae PCR Adenovirus (PCR) B. pertussis DNA (PCR) B.parapertussis DNA PCR Coronavirus OC43 (PCR) Coronavirus HKU1 (PCR) Coronavirus 229E (PCR) SARS-CoV-2 (PCR) Coronavirus NL63 (PCR) Human Metapneumovir PCR Influenza Type A (PCR) Influenza Type B (PCR) M. pneumoniae (PCR) Parainfluenza 1 (PCR) Parainfluenza 2 (PCR) Parainfluenza 3 (PCR) Parainfluenza 4 (PCR) RSV (PCR) Entero/Rhino (PCR) [facility] Medical History C. difficile diarrhea Colitis Social History household members: family Smoking Status: Current every day smoker alcohol intake: current Assessment & Plan Assessment & Plan narrative: 1. COPD exacerbation secondary to respiratory infection-continue with current frequent nebulizers and parental steroids. Patient is dramatically improved after less than 24 hours of treatment. Will probably be able to switch to oral steroids and or even consider discharge home within the next 24 hours 2. ID-patient with identified adenovirus as well as human medicine pneumonia virus on PCR testing. This is likely triggering her COPD exacerbation. No specific intervention. Patient also continues on antibiotics for possible overlapping secondary bacterial pneumonia given her elevated white blood cell co unt. Continue that for now. 3. Elevated blood pressure-patient quite hypertensive upon admission but also in a bit of respiratory distress. Much improved after treatment of her lung disease. Not an active issue at this time. 4. GERD-continue with proton pump inhibitor 5. Lumbar radiculopathy-patient continues on gabapentin and of course the parental steroids should be of benefit as well 6. Depression-continue patient's SSRI Overall patient is much improved over status at time of admission based on my discussion with Dr. Carmen last evening as well as notes available in the chart. Patient is actually quite anxious to return home as soon as possible but certainly I think she needs another 24 hours in the hospital. However if she continues to improve and or is at least stable she may well be a candidate for discharge within the next 24 hours certainly within 48 hours if not then Note: Greater than 20 minutes total time was spent on day of service, evaluating the patient on the floor, including examining the patient, discussing clinical course with clinical and nursing staff, reviewing clinical course in the computer, preparing documentation and writing orders for continued management of care, discussing status with family as appropriate, reviewing plans for the next 24 hours with both patient/family and nursing staff as appropriate. Quality VTE Deep Vein Thrombosis/Pulmonary Embolism Present on Admission: No
[2022-02-22 12:45] VITALS: BP 142/56; PULSE 84; RESP 17; TEMP 37.1; O2SAT 94
--- NOTE | 2022-02-22 13:05 | OT.IP.EVAL ---
Past Medical History (Last Updated 02/22/22 @ 11:02 by Maurisio Grant MD) C. difficile diarrhea Colitis COPD (chronic obstructive pulmonary disease) Depression GERD without esophagitis Hyperlipidemia Impaired fasting glucose S/P appendectomy S/P cholecystectomy S/P tonsillectomy Smoker unmotivated to quit Spondyloarthritis Surgical History (Last Updated 02/22/22 @ 11:02 by Maurisio Grant MD) S/P appendectomy S/P cholecystectomy S/P tonsillectomy Occupational Therapy Inpatient Evaluation/Re-Eval M1 PT/OT-IP Prior Functional Status Start: 02/22/22 13:30 Freq: NEEDED Status: Active Protocol: Document 02/22/22 13:36 [facility] (Rec: 02/22/22 13:36 [facility] [id number]) Medical Review Prior Functional Status Communication Independent Mobility and Gait Pt states does not use a device and has not had any recent falls. Per pt's daughter has been trying to get her to use a walker as she normally push a cart when shopping and get tired quickly at times. Activities of Daily Living and IADL's Pt states is independent with all ADl, IADL needs and seldom drives but if so locally and has assist for medications and finances. Prior Functional Level (Other details) Pt lives in a house with an upstairs apartment in which her grand daughter lives out of . Pt lives in the house downstairs and states usually someone is around to assist her if needed. Pt's daughter states she is alone at times. Social History Household Members family Living Arrangements House Number of Stairs To Enter/Railing? 3 steps with bilateral wide steps Home Environment High Toilet,Tub/Shower Home Equipment Straight Cane,Hand Held Shower ,Product Builder M2 OT-IP Current Condition Start: 02/22/22 13:02 Freq: Status: Active Protocol: Document 02/22/22 13:03 [facility] (Rec: 02/22/22 13:35 [facility] [id number]) Occupational Therapy Current Condition Current Condition Evaluation Date 02/22/22 Treatment Diagnosis COPD/PNA M3 OT- IP Subjective and Pain Start: 02/22/22 13:02 Freq: Status: Active Protocol: Document 02/22/22 13:03 [facility] (Rec: 02/22/22 13:35 [facility] [id number]) OT- Subjective Occupational Therapy Visit Type Type Initial Evaluation Visit Start Time 12:28 Visit Stop Time 13:05 Total Visit Minutes 37 Occupational Therapy Visit Comments Patient Comments Pt initially not wanting OT eval and then agreed to work with OT. Pt's daughter in the room. Patient/Caregiver Goals TO go home. OT Pain Assessment Pain When Pain Assessed At Rest Pain Present Pain Present Denied Pain M4 OT- IP ADL's Start: 02/22/22 13:02 Freq: Status: Active Protocol: Document 02/22/22 13:03 [facility] (Rec: 02/22/22 13:35 [facility] [id number]) OT [id number] Comments OT Self-Feeding Comments NOt at meal time. OT ADL-Grooming Comments OT Grooming Comments NOt performed. OT ADL-Oral Care Comments Oral Care Comments Not performed. OT ADL-Toileting Comments OT Toileting Comments Pt states has been into the bathroom on her own. OT ADL-Bathing Comments OT Bathing Comments Not performed. M5 OT- IP IADL's Start: 02/22/22 13:02 Freq: Status: Active Protocol: Document 02/22/22 13:03 [facility] (Rec: 02/22/22 13:35 [facility] [id number]) OT-Instrumental Activities of Daily Living Medication Management Medication Management Caregiver Provides Supervision Money Management Money Management Caregiver Provides Assistance M6 OT- IP Functional Cognition Start: 02/22/22 13:02 Freq: Status: Active Protocol: Document 02/22/22 13:03 [facility] (Rec: 02/22/22 13:35 [facility] [id number]) Cognitive Factors Limiting Selfcare Function Cognitive Ability Level of Alertness Alert Patient Orientation Name,Place,Situation Ability to Follow Commands Able to Follow One Step Commands Memory Description Short Term Impaired Problem Solving Ability Unable to Identify Errors Executive Function Ability Unable to Remember Details Cognitive Comments Cognitive Assessment Comments Pt not able to complete [place] Making B which implies severe impairment for visual attention, speed of processing , task switching, mental flexibilty, and executive functioning. Even prior to the assessment pt's daughter states, She is always anxious with those tests. Pt having difficulty to recall switching from number to letters. It was suggested that pt not drive at this time. Pt's daughter states, oh she does not usually drive unless it is local, but someone can help her with the driving. Suggested to have someone be home with the pt initially to see how she does, especially since pt take baths at home. Pt insistent that she will be fine. OT- Vision and Hearing OT- Hearing Assessment OT- Hearing Assessment WFL OT- Vision Assessment Visual Acuity Glasses All The Time Visual Attentiveness WFL Visual Convergence WFL M7 OT- IP Mobility and Balance Start: 02/22/22 13:02 Freq: Status: Active Protocol: Document 02/22/22 13:03 [facility] (Rec: 02/22/22 13:35 [facility] [id number]) OT- Bed Mobility Assessment Rolling Level of Assistance Independent Supine to Sit Supine to Sit Assist Independent Sit to Supine Sit to Supine Assist Independent OT-Transfer Assessment Comments Mobility Comments Pt independently got to the edge of the bed on her own. OT- Balance Assessment Sitting Balance and Reactions Static Sitting Balance Ability Normal Dynamic Sitting Balance Ability Good M9 OT- IP Assessment and Plan Start: 02/22/22 13:02 Freq: Status: Active Protocol: Document 02/22/22 13:03 [facility] (Rec: 02/22/22 13:35 [facility] [id number]) OT Summary Assessment and Plan Potential Rehabilitation Potential Good Analytic Complexity at Evaluation Low Summary Assessment Summary Pt low complexity and main barrier are decreased activity tolerance, safety awareness and would benefit from someone to assist her as needed especially for IADL needs and getting into and out of the bath tub. Pt is insistent that she will be fine and that someone is available 24/7 to assist her if needed. Pt's daughter implies if the pt will call them as she is fiercely independent. Pt not wanting to have any further OT and able to go over energy conservation information with pt. Suggest that pt to go home with 24/7 available assist. Frequency of Treatment Frequency Of Treatment Discharge Treatment Plan OT Treatment Plan Discharge Planning Discharge Recommendations OT Discharge Recommendations Home with 24/7 Assist Available Transportation Needs at Discharge Private Vehicle
[2022-02-22] MEDS: cefTRIAXone 1,000 MG in SODIUM CHLORIDE 0.9% 100 ML 200 MG IV (13:31)
--- NOTE | 2022-02-22 15:57 | CM.DANOTE ---
Addendum entered by PRETTY Nathan 02/22/22 16:06: ADD: Grand micah Coreas is an ED RN here at ; spoke w/Lyudmila briefly this morning while visiting w/patient. No CM team needs expected MIKE Original Note: Initial DCP Assessment Note Pt is an 81 yo female, resident [facility], presents w/COPD exacerbation secondary to respiratory infection, admitted for medical management/IV abx and expected to DC w/in 24-48 hrs on po meds PCP: Maria Luisa Allen Payer: [facility] Reviewed chart, met w/patient to introduce role. Patient is very pleasant, explains she lives in a house not far from the hospital and grand dtr/grand son in law and their children live in the upstairs apt/studio Patient feels confident about her return home, states she has needs met by a lot of supportive family and does not feel HH would be helpful at this time. Patient states she has low activity tolerance, does not go out often but completes all ADLs independently at this time Plan: DC home w/family is expected when medically cleared, w/close outpatient f/u, revisit topic of HH RN/PT as needed PRETTY Richard Discharge Planning/Care Management CM Discharge Assessment Start: 02/22/22 15:53 Freq: Status: Active Protocol: Document 02/22/22 15:53 [facility] (Rec: 02/22/22 15:57 [facility] [id number]) Discharge Planning Assessment Assigned Real Estate Professional PRETTY Goldsmith DPOA/Assigned Designee Name grand micah COREAS Contact Information [phone] Advance Directives? Yes Advance Directives on File No History Provided By Patient,Medical Record Prior Living Arrangements House Household Members family Type of transporation used prior to Relies on Others admit Independent with ADL's Yes: Needs rest breaks Is patient alert and oriented? Yes Needs Assistance With Meal Prep,Home Chores / Shopping Barriers to Discharge No Comment Patient would like to return home w/family support. Patient unsure whether HH RN/PT would be helpful to her Discharge Plan Home Transportation Arrangement Family Referrals Initiated None needed Additional Comment Patient unsure about HH; CM team could reassess again upon DC if recommended by discharging provider
[2022-02-22 16:28] VITALS: BP 148/53; PULSE 80; RESP 18; TEMP 37.1; O2SAT 94
[2022-02-22 19:42] VITALS: BP 155/62; PULSE 72; RESP 18; TEMP 36.4; O2SAT 95
[2022-02-22 19:46] VITALS: O2SAT 94
[2022-02-22] MEDS: diphenhydrAMINE 25 MG TABLET 50 MG PO (21:22)
[2022-02-22] MEDS: BENZONATATE 100 MG CAPSULE 200 MG PO (21:22)
[2022-02-22] MEDS: GABAPENTIN 100 MG CAPSULE PO (21:23)
[2022-02-23 03:57] VITALS: BP 160/62; PULSE 62; RESP 18; TEMP 36.7; O2SAT 92
[2022-02-23] MEDS: methylPREDNISolone 125 MG/2 ML VIAL 60 MG IV ×2 (05:14→12:16)
[2022-02-23] MEDS: PANTOPRAZOLE DR 20 MG TABLET PO (05:14)
[2022-02-23 07:35] VITALS: BP 161/69; PULSE 79; RESP 18; TEMP 36.8; O2SAT 93
[2022-02-23] MEDS: AZITHROMYCIN 250 MG TABLET PO (08:54)
[2022-02-23] MEDS: FLUoxetine 20 MG CAPSULE 40 MG PO (08:54)
[2022-02-23] MEDS: SODIUM CHLORIDE 0.9% FLUSH 10 ML IV (08:54)
--- NOTE | 2022-02-23 11:07 | CM.DPC ---
Addendum entered by Bethany Manning R.N. 02/23/22 12:03: Per MD, discharged today. Home health orders placed with [facility] signed. No home health preference. Signature referral made based on vendor calendar and faxed referral, orders, and [facility]. Pt to d/c home via POV of daughter. AJ Original Note: DCP: Discharge home with home health DCP discussed the option of home health with pt and pt's daughter. Per OT, recommending home with 27/04 due to memory and safety concerns. Per PT, home with assist and home health. They are agreeable to setting up home health. Pt wanting to discharge home today. Dr. Grant arrived bedside while in the room. Pt. likely to discharge today. DCP to follow and confirm if MD agreeable to home health for pt. P: Pt discharge via daughter POV 02/23 and rule out home health Bethany Manning RN, DCP
--- NOTE | 2022-02-23 11:10 | PM.DS.1 ---
History of Present Illness History of Present Illness Date Patient Seen: 02/23/22 Time Patient Seen: 11:10 Chief complaint: COPD/ Pneumonia 2 WEEKS AGO SOB Narrative: This is a very pleasant 81-year-old female who resides on her own in an apartment here in [facility].? She sees Dr. Allen for her primary care physician.? Her most significant past medical problem is that of COPD and continued tobacco abuse.? She smokes a little bit less than a pack a day.? She developed progressive cough and symptoms and was seen in the clinic January 31.? She was treated with Levaquin for 10 days and prednisone for 5 days.? She feels that her symptoms improved.? She then has had worsening symptoms over the last several days that progressed and she was significantly short of breath that she presented to the emergency department and was found to have O2 sats on room air in the upper 80s.? Workup revealed that she was COVID negative without clear evidence of abnormal findings on her chest x-ray other than chronic COPD changes.? She was found to have elevated white blood cell count and then subsequently was found to be positive for adenovirus and human meta pneumo virus.? She was treated with IV Solu-Medrol and azithromycin and ceftriaxone.? She was given supplemental oxygen and she is feeling better with nebulizer treatment as well. Patient also has been struggling with some left hip pain and back pain for which she was given gabapentin in the evening but it was a short time dosage and she is still having symptoms. {from Dr. Carmen's H&P 02/21/22}? Discharge Providers Provider Date of admission: 02/21/22 13:37 Discharge Date: 02/23/22 Primary care physician: Maria Luisa Allen MD Consults: 02/21/22 18:54 Consult to Discharge Planning Routine Comment: Consult to Occupational Therapy Evaluate & Treat Comment: Physician Instructions: Evaluate and treat Consult to Physical Therapy Evaluate & Treat Comment: Physician Instructions: Evaluate and Treat 02/21/22 18:55 Consult to Respiratory Therapy Evaluate & Treat Comment: Physician Instructions: Evaluate and treat Discharge provider: Maurisio Grant MD Summary Hospital Course Discharge Diagnosis: 1. COPD exacerbation 2. Adenovirus pneumonia 3. Possible atypical/bacterial pneumonia 4. Acute on chronic respiratory failure, resolved, secondary to issues above 5. Elevated blood pressure 6. Spondylitic arthritis with left leg symptoms 7. Depression 8. GERD without esophagitis Hospital Course: Patient was admitted to the hospital floor after her ER evaluation as above. With parental antibiotics parental corticosteroids and frequent nebulizer treatments her respiratory symptoms improved significantly. She is able to be weaned off of the oxygen. She remains somewhat hypertensive perhaps secondary to the corticosteroids. By the day of discharge she was much improved able to breathe probably at baseline (having not seen her before difficult to be sure). She was not requiring any supplemental oxygen. She was minimally breathless with activity. She would did seem to be in a place where she would benefit from physical therapy both for chronic arthritic symptoms in her lower extremities as well as her deconditioned state from her chronic lung disease She will continue and complete a 5 day course of oral azithromycin for potential atypical/bacterial pneumonia She will continue on corticosteroid therapy at 40 mg a day of prednisone until she can be seen by her PCP. She previously failed a outpatient burst of prednisone so I think she needs a longer duration prednisone course at this point Patient would benefit from home health services including nursing evaluation with medication management as well as physical therapy Patient was treated gabapentin for her chronic lower extremity symptoms/lumbar radiculopathy. She was minimally improved and so that will be continued discharge as well. Given her improvement not feel the need for further evaluation during this hospitalization, and in addition, patient was pretty adamant that she was to be discharged home today (which is entirely appropriate) Exam Vital Signs (past 8 hours): - 02/23/22 03:57 02/23/22 07:35 Temperature 98.0 F 98.3 F Pulse Rate 62 79 Respiratory Rate 18 18 Blood Pressure 160/62 H 161/69 H Pulse Oximetry 92 93 Oxygen Delivery Method Room Air Oxygen Flow Rate 0 Objective Labs Result Diagrams: 02/22/22 06:20 02/22/22 06:20 [facility] Medical History C. difficile diarrhea Colitis COPD (chronic obstructive pulmonary disease) Depression GERD without esophagitis Hyperlipidemia Impaired fasting glucose Smoker unmotivated to quit Spondyloarthritis Surgical History S/P appendectomy S/P cholecystectomy S/P tonsillectomy Social History household members: family Smoking Status: Current every day smoker alcohol intake: current Discharge Assessment & Plan Assessment and Plan Plan of Treatment: Patient to be discharged home to initiate home health services as above Patient to continue with prednisone 40 mg daily until seen by PCP and to complete 3 additional days of azithromycin Patient to initiate gabapentin therapy for her musculoskeletal symptoms and reassess at her PCP follow-up appointment Patient's blood pressure also elevated will need to be evaluated as she tapers off of the prednisone whether not she would benefit from antihypertensive treatment itself Patient be seen in the outpatient clinic by her PCP in approximately 7-14 days time Discharge Plan Discharge Plan Patient Disposition: Home Health Service Provider Discharge Comment: Home health nursing and physical therapy Discharge orders & Medications Prescriptions: New azithromycin [Zithromax Z-Jf] 250 mg Tablet 250 mg PO DAILY Qty: 3 0RF gabapentin 100 mg Capsule 100 mg PO BEDTIME Qty: 30 0RF fluoxetine 20 mg Capsule 40 mg PO DAILY Qty: 30 0RF prednisone 20 mg tablet 40 mg PO DAILY Qty: 30 0RF Rx Instructions: 2 tabs daily or as directed by physician Continued rosuvastatin 5 mg tablet 5 mg PO DAILY 0RF omeprazole 20 mg capsule,delayed release(DR/EC) 20 mg PO DAILY 0RF aspirin [Adult Aspirin Regimen] 81 mg tablet,delayed release (DR/EC) 81 mg PO DAILY 0RF calcium polycarbophil [FiberCon] 625 MG tablet 2 tab PO BID Qty: 0 0RF Spiriva with HandiHaler 18 MCG capsule, w/inhalation device 1 puff INH QDAY Qty: 1 0RF albuterol sulfate [Ventolin HFA] 90 MCG/PUFF HFA aerosol inhaler 2 puff INH Q2HP PRN (Reason: breathing) 0RF Discontinued fluoxetine 10 MG tablet 30 mg PO QDAY Qty: 0 0RF meclizine [Bonine] 25 MG tablet,chewable 1 - 2 tab PO Q8HP PRNQty: 12 0RF ondansetron [Zofran ODT] 4 MG tablet,disintegrating 4 mg Sublingual Q6HP PRNQty: 5 0RF Follow up/Referrals: Maria Luisa Allen MD [Primary Care Provider] - 1 Week (Will need to call office on Thursday to set up appointment) Diet/Activity/Treatments Diet: Diet as Tolerated Visit Report/Discharge Packet Instructions: Tips to Help You Stop Smoking, DI for Chronic Obstructive Pulmonary Disease Discharge Data Primary Care Provider: Maria Luisa Allen Attending Provider: Maria Luisa Allen Quality VTE Deep Vein Thrombosis/Pulmonary Embolism Present on Admission: No
[2022-02-23] MEDS: cefTRIAXone 1,000 MG in SODIUM CHLORIDE 0.9% 100 ML 100 MG IV (12:14)
== END 2022-02-23 13:00 | disposition home health service (06) | DRG 190 ==
LOC: ED 13:34 → AC 14:16
PROVIDERS: Family Medicine; Admitting Provider Student in an Organized Health Care Education/Training Program; Emergency Provider Emergency Medicine; Family Provider Nurse Practitioner Family; PCP Student in an Organized Health Care Education/Training Program; Referring Provider Emergency Medicine; Visit Provider Student in an Organized Health Care Education/Training Program
DX: J44.1 Chronic obstructive pulmonary disease with (acute) exacerbation (principal); J96.00 Acute respiratory failure, unspecified whether with hypoxia or hypercapnia; J15.9 Unspecified bacterial pneumonia; B97.89 Other viral agents as the cause of diseases classified elsewhere; M54.16 Radiculopathy, lumbar region; F17.210 Nicotine dependence, cigarettes, uncomplicated; K21.9 Gastro-esophageal reflux disease without esophagitis; E78.5 Hyperlipidemia, unspecified; F32.A Depression, unspecified; R03.0 Elevated blood-pressure reading, without diagnosis of hypertension; Z20.822 Contact with and (suspected) exposure to COVID-19
CPT/HCPCS: 36415; 36592; 71045; 80053; 82550; 83605; 83690; 83735; 83880; 84145; 84484; 85025; 87040; 87633; 87635; 93005; 93010; 94640; 94762; 96365; 96368; 96375; 97162; 97165; 99232; 99238; 99284; C9803; G0378; J0696; J1650; J2930; J7613

== ENCOUNTER 2022-07-27 19:31 | Emergency (ER) | payer MEDICARE, SELFPAY ==
[2022-03-19 15:29] VITALS: BMI 17.6
[2022-07-27] VITALS (8 sets, daily range): BP systolic 133–147; BP diastolic 60–67; PULSE 84–95; RESP 20–26; TEMP 37.4; O2SAT 88–94; BMI 15.9
--- NOTE | 2022-07-27 19:39 | ED.GENADULT ---
HPI - General Adult General Chief complaint: Shortness of Breath/Dyspnea Stated complaint: SOB/fever Time Seen by Provider: 07/27/22 19:36 Source: patient and family Mode of arrival: Wheelchair Limitations: no limitations History of Present Illness HPI narrative: 81-year-old female. Has a history of COPD. Does not have home oxygen. Does use nebulizers. No history heart failure. Is here for evaluation of shortness of breath and fever and decreased exercise tolerance. Symptoms have been going on for the past couple days. Did take Tylenol prior to arrival. Patient denies chest pain. No lower extremity swelling. She has been taking her medications as directed. She is having a productive cough but it is unchanged from her baseline. No change in quality of the cough. Related Data Home Medications Medication Instructions Recorded Confirmed calcium polycarbophil 625 mg 2 tab PO BID ##0 10/27/16 04/23/22 tablet (FiberCon) albuterol sulfate 90 mcg/actuation 2 puff INH Q2HP PRN breathing 02/22/22 04/23/22 aerosol inhaler (Ventolin HFA) budesonide-formoterol HFA 80 2 puff inhalation BID 04/01/22 04/23/22 mcg-4.5 mcg/actuation aerosol inhaler Previous Rx's Medication Instructions Recorded tiotropium bromide 18 mcg capsule 1 puff INH QDAY #1 ea 10/28/16 with inhalation device (Spiriva with HandiHaler) aspirin 81 mg tablet,delayed 81 mg PO DAILY #30 tabs 04/01/22 release (Adult Aspirin Regimen) fluoxetine 40 mg capsule 40 mg PO DAILY #30 caps 04/01/22 omeprazole 20 mg capsule,delayed 20 mg PO DAILY #30 caps 04/01/22 release rosuvastatin 5 mg tablet 5 mg PO DAILY #30 tabs 04/01/22 gabapentin 300 mg capsule 300 mg PO TID #90 caps 05/26/22 levofloxacin 750 mg tablet 750 mg PO DAILY 4 days #4 tabs 07/27/22 prednisone 20 mg tablet 20 mg PO DAILY 4 days #4 tabs 07/27/22 Allergies Allergy/AdvReac Type Severity Reaction Status Date / Time No Known Drug Allergies Allergy Verified 04/23/22 15:29 Review of Systems Constitutional Constitutional: Reports system reviewed and no additional complaints, except as documented ENT Ears, Nose, Mouth, and Throat: Reports system reviewed and no additional complaints, except as documented Cardiovascular Cardiovascular: Reports system reviewed and no additional complaints, except as documented Respiratory Respiratory: Reports system reviewed and no additional complaints, except as documented Integumentary/Breasts Skin/Breast: Reports system reviewed and no additional complaints, except as documented Patient History Medical History COPD (chronic obstructive pulmonary disease) Depression GERD without esophagitis Hyperlipidemia Smoker unmotivated to quit Spondyloarthritis Surgical History S/P appendectomy S/P cholecystectomy S/P tonsillectomy Social History household members: family Smoking Status: Current every day smoker alcohol intake: current Smoking Status: Current every day smoker alcohol intake frequency: holidays/special occasions only Substance Use Type: does not use Exam Initial Vital Signs Initial Vital Signs: Vital Signs Temperature 99.3 F 07/27/22 19:35 Pulse Rate 95 H 07/27/22 19:35 Respiratory Rate 22 07/27/22 19:35 Blood Pressure 144/65 H 07/27/22 19:35 Pulse Oximetry 92 07/27/22 19:35 Oxygen Delivery Method 07/27/22 19:35 Const General: No ill appearing HENMT Head: normal to inspection and normocephalic Resp Effort & Inspection: not labored and tachypneic Auscultation: rhonchi and wheezes Cardio Rate: regular rate Rhythm: regular rhythm GI Inspection: normal to inspection Skin General: no rashes or lesions noted Neuro General: patient alert, patient awake and moves all extremities Speech: speech normal Extrem General: No edema Psych Appearance: grossly normal Course Orders Ordered: ED Orders 07/27/22 19:43 XR chest 1V Stat EKG-12 Lead Stat RT Consult Eval and Treat Now 07/27/22 19:44 Complete Blood Count AUTO DIFF Stat Comprehensive Metabolic Panel Stat Lipase Stat Magnesium Stat NT-proBNP (BNP-Adult 18+) Stat Procalcitonin Stat Respiratory Panel (Film Array) Stat Troponin & CK Cardiac Panel Stat Discontinued Medications Albuterol/Ipratropium (Albuterol/Ipratropium 3 Ml Ampul) 3 ml INH NOW ONE Stop: 07/27/22 19:42 Last Admin: 07/27/22 19:46 Dose: 3 ml Documented By: NATHANIEL Levofloxacin (Levofloxacin 250 Mg Tablet) 750 mg PO NOW ONE Stop: 07/27/22 21:51 Last Admin: 07/27/22 21:56 Dose: 750 mg Documented By: RL Methylprednisolone (Methylprednisolone 125 Mg/2 Ml Vial) 125 mg IV NOW ONE Stop: 07/27/22 19:42 Last Admin: 07/27/22 20:10 Dose: 125 mg Documented By: OW Vital Signs Vital signs: Vital Signs - 8 hr 07/27/22 19:35 07/27/22 19:58 07/27/22 19:46 Temperature 99.3 F Pulse Rate 95 H 92 H Respiratory Rate 22 20 Blood Pressure 144/65 H 145/67 H Pulse Oximetry 92 94 93 Oxygen Delivery Method Room Air Room Air Room Air 07/27/22 20:01 07/27/22 20:30 07/27/22 20:30 Temperature Pulse Rate 95 H 91 H Respiratory Rate 25 H 24 Blood Pressure 140/66 133/60 Pulse Oximetry 93 92 Oxygen Delivery Method Room Air 07/27/22 21:00 07/27/22 21:00 07/27/22 21:30 Temperature Pulse Rate 86 Respiratory Rate 23 Blood Pressure 147/64 H 145/63 H Pulse Oximetry 92 Oxygen Delivery Method 07/27/22 21:30 07/27/22 22:03 Temperature Pulse Rate 84 89 Respiratory Rate 22 26 H Blood Pressure Pulse Oximetry 93 88 L Oxygen Delivery Method Medical Decision Making Lab Data Lab results reviewed: Yes I reviewed the patient's lab results. Result diagrams: 07/27/22 19:44 07/27/22 19:44 Labs: Lab Results 07/27/22 07/27/22 07/27/22 Range/Units 19:44 19:44 19:44 WBC 14.5 H (4.5-11.0) X10^3/uL RBC 4.37 (4.0-5.2) X10^6/uL Hgb 13.4 (12.0-16.0) g/dL Hct 39.6 (36-46) % MCV 90.6 (80-100) fL MCH 30.6 (26-34) PG MCHC 33.8 (30-36) % RDW 14.0 (11.6-14.8) % Plt Count 192 (150-400) X10^3/uL Neut % (Auto) 79.4 H (50-75) % Lymph % (Auto) 11.0 L (25-40) % [place] % (Auto) 9.3 (3-14) % Eos % (Auto) 0.1 L (2-4) % Baso % (Auto) 0.2 (0-2) % Neut # (Auto) 48779 H (3086-7840) /uL Lymph # (Auto) 1600 (3312-2632) /uL [place] # (Auto) 1300 H (0-900) /uL Eos # (Auto) 0 (0-450) /uL Baso # (Auto) 0 (0-100) /uL Sodium 134 L (137-145) mmol/L Potassium 3.8 (3.4-5.1) mmol/L Chloride 99 (98-107) mmol/L Carbon Dioxide 23 (22-32) mmol/L BUN 20 H (7-17) mg/dL Creatinine 0.60 (0.52-1.04) mg/dL Estimated GFR > 60 (>60) mL/min BUN/Creatinine Ratio 33.3 H (6-22) Glucose 131 H (80-110) mg/dL Calcium 9.1 (8.4-10.2) mg/dL Magnesium (1.6-2.3) mg/dL Total Bilirubin 1.0 (0.2-1.3) mg/dL AST 30 (14-36) IU/L ALT 24 (<35) IU/L Alkaline Phosphatase 92 (38-126) U/L Total Creatine Kinase 32 (30-135) U/L CK-MB (CK-2) TNP CK-MB (CK-2) Rel Index TNP Troponin I < 0.012 (0.01-0.034) ng/mL NT-Pro-B Natriuret Pep 262 (<450) pg/mL Total Protein 7.4 (6.3-8.2) g/dL Albumin 4.3 (3.5-5.0) g/dL Globulin 3.1 (1.7-4.1) g/dL Albumin/Globulin Ratio 1.4 (1.0-2.8) Lipase 26 (23-300) U/L Procalcitonin 0.09 (<0.5) ng/mL Chlamy pneumoniae PCR Not detected (Not Detect) Adenovirus (PCR) Not detected (Not Detect) B. pertussis DNA (PCR) Not detected (Not Detecte) B.parapertussis DNA PCR Not detected (Not Detecte) Coronavirus OC43 (PCR) Not detected (Not Detect) Coronavirus HKU1 (PCR) Not detected (Not Detect) Coronavirus 229E (PCR) Not detected (Not Detect) SARS-CoV-2 (PCR) Not detected (Not Detecte) Coronavirus NL63 (PCR) Not detected (Not Detect) Human Metapneumovir PCR Not detected (Not Detect) Influenza Type A (PCR) Not detected (Not Detect) Influenza Type B (PCR) Not detected (Not Detect) M. pneumoniae (PCR) Not detected (Not Detect) Parainfluenza 1 (PCR) Not detected (Not Detect) Parainfluenza 2 (PCR) Not detected (Not Detect) Parainfluenza 3 (PCR) Not detected (Not Detect) Parainfluenza 4 (PCR) Not detected (Not Detect) RSV (PCR) Not detected (Not Detect) Entero/Rhino (PCR) Not detected (Not Detect) 07/27/22 Range/Units 19:44 WBC (4.5-11.0) X10^3/uL RBC (4.0-5.2) X10^6/uL Hgb (12.0-16.0) g/dL Hct (36-46) % MCV (80-100) fL MCH (26-34) PG MCHC (30-36) % RDW (11.6-14.8) % Plt Count (150-400) X10^3/uL Neut % (Auto) (50-75) % Lymph % (Auto) (25-40) % [place] % (Auto) (3-14) % Eos % (Auto) (2-4) % Baso % (Auto) (0-2) % Neut # (Auto) (2379-0547) /uL Lymph # (Auto) (4798-3294) /uL [place] # (Auto) (0-900) /uL Eos # (Auto) (0-450) /uL Baso # (Auto) (0-100) /uL Sodium (137-145) mmol/L Potassium (3.4-5.1) mmol/L Chloride (98-107) mmol/L Carbon Dioxide (22-32) mmol/L BUN (7-17) mg/dL Creatinine (0.52-1.04) mg/dL Estimated GFR (>60) mL/min BUN/Creatinine Ratio (6-22) Glucose (80-110) mg/dL Calcium (8.4-10.2) mg/dL Magnesium 1.6 (1.6-2.3) mg/dL Total Bilirubin (0.2-1.3) mg/dL AST (14-36) IU/L ALT (<35) IU/L Alkaline Phosphatase (38-126) U/L Total Creatine Kinase (30-135) U/L CK-MB (CK-2) CK-MB (CK-2) Rel Index Troponin I (0.01-0.034) ng/mL NT-Pro-B Natriuret Pep (<450) pg/mL Total Protein (6.3-8.2) g/dL Albumin (3.5-5.0) g/dL Globulin (1.7-4.1) g/dL Albumin/Globulin Ratio (1.0-2.8) Lipase (23-300) U/L Procalcitonin (<0.5) ng/mL Chlamy pneumoniae PCR (Not Detect) Adenovirus (PCR) (Not Detect) B. pertussis DNA (PCR) (Not Detecte) B.parapertussis DNA PCR (Not Detecte) Coronavirus OC43 (PCR) (Not Detect) Coronavirus HKU1 (PCR) (Not Detect) Coronavirus 229E (PCR) (Not Detect) SARS-CoV-2 (PCR) (Not Detecte) Coronavirus NL63 (PCR) (Not Detect) Human Metapneumovir PCR (Not Detect) Influenza Type A (PCR) (Not Detect) Influenza Type B (PCR) (Not Detect) M. pneumoniae (PCR) (Not Detect) Parainfluenza 1 (PCR) (Not Detect) Parainfluenza 2 (PCR) (Not Detect) Parainfluenza 3 (PCR) (Not Detect) Parainfluenza 4 (PCR) (Not Detect) RSV (PCR) (Not Detect) Entero/Rhino (PCR) (Not Detect) Imaging Data Chest x-ray: Radiologist's Impression: [address] [address] XRay Report Signed Patient: Dena Stock MR#: [id number] : 1940 Acct:[id number] Age/Sex: 81 / F Date of Service: 07/27/22 Loc: ED Accession Number: [id number] ?? Procedure: XR chest 1V Ordering Provider: Brijesh Oquendo D.O. PROCEDURE:? XR CHEST 1V ? INDICATIONS:? COPD and SOB ? TECHNIQUE:? One view of the chest was acquired.? ? COMPARISON:? [facility], CR, CHEST 2 VIEW, 09/01/2017, 12:08.? [facility], CR, XR CHEST 1V, 02/21/2022, 11:08. ? FINDINGS:? ? Surgical changes and devices:? None.? ? Lungs and pleura:? There is hyperinflation of the lungs with flattening of the hemidiaphragms compatible with COPD.? No acute consolidation.? There are reticular interstitial opacities in the lung bases which appear chronic.? Deficit? No pleural effusions or pneumothorax.? ? Mediastinum:? Mediastinal contours appear normal.? Heart size is normal.? ? Bones and chest wall:? No suspicious bony lesions.? Overlying soft tissues appear unremarkable.? ? IMPRESSION:? ? 1. Findings compatible with COPD redemonstrated. ? 2. No acute cardiopulmonary disease.? ? ? Dictated by: Bernard Chavez M.D. on 07/27/2022 at 20:22 ? ? Approved by: Bernard Chavez M.D. on 07/27/2022 at 20:23?? ECG Data Attestation: I personally reviewed and interpreted this ECG as follows: Interpretation: Sinus rhythm Ventricular rate of 90 Normal QRS Normal QTC No ST T wave changes MDM Narrative Medical decision making narrative: Patient reports improvement of symptoms after her nebulizer treatments. She has a leukocytosis. Given her recent fevers and her history of COPD and recent shortness of breath on exertion I do feel that treating with antibiotics would be reasonable despite not having a change in her sputum production or consistency. She was given a dose here in the ER. She has all of her inhalers at home and does not need a refill. Upon ambulation the patient did become significantly short of breath and hypoxic into the high 80s. This improved somewhat with sitting on the edge of the bed. We discussed admission to the hospital for further treatment and potential evaluation for having home oxygen however the patient declined. She is alert oriented x3. My opinion does have capacity to make decisions. Her granddaughter was at bedside for these discussions. Patient would like to be discharged home. Discharge Plan Departure Patient Disposition: Home Clinical Impression: Acute exacerbation of chronic obstructive airways disease Instructions: Chronic Obstructive Pulmonary Disease Activity Restrictions/Additional Instructions: Continue to take all of your medications as directed. [facility] Please start taking them tomorrow as directed. Return to the emergency department for any new or worsening symptoms. Prescriptions: New levofloxacin 750 mg tablet 750 mg PO DAILY 4 Days Qty: 4 0RF prednisone 20 mg tablet 20 mg PO DAILY 4 Days Qty: 4 0RF No Action calcium polycarbophil [FiberCon] 625 MG tablet 2 tab PO BID Qty: 0 Spiriva with HandiHaler 18 MCG capsule, w/inhalation device 1 puff INH QDAY Qty: 1 0RF gabapentin 300 mg capsule 300 mg PO TID Qty: 90 3RF budesonide-formoterol 80-4.5 mcg/actuation HFA aerosol inhaler 2 puff inhalation BID fluoxetine 40 mg capsule 40 mg PO DAILY Qty: 30 5RF rosuvastatin 5 mg tablet 5 mg PO DAILY Qty: 30 5RF omeprazole 20 mg capsule,delayed release(DR/EC) 20 mg PO DAILY Qty: 30 5RF aspirin [Adult Aspirin Regimen] 81 mg tablet,delayed release (DR/EC) 81 mg PO DAILY Qty: 30 5RF albuterol sulfate [Ventolin HFA] 90 MCG/PUFF HFA aerosol inhaler 2 puff INH Q2HP PRN (Reason: breathing) Referrals: Henry Sigala MD [Primary Care Provider] - Visit Report Forms: Patient Portal/API
--- NOTE | 2022-07-27 19:43 | DI.RAD.S_ITS ---
PROCEDURE: XR CHEST 1V INDICATIONS: COPD and SOB TECHNIQUE: One view of the chest was acquired. COMPARISON: [facility], , CHEST 2 VIEW, 09/01/2017, 12:08. [facility], , XR CHEST 1V, 02/21/2022, 11:08. FINDINGS: Surgical changes and devices: None. Lungs and pleura: There is hyperinflation of the lungs with flattening of the hemidiaphragms compatible with COPD. No acute consolidation. There are reticular interstitial opacities in the lung bases which appear chronic. Deficit No pleural effusions or pneumothorax. Mediastinum: Mediastinal contours appear normal. Heart size is normal. Bones and chest wall: No suspicious bony lesions. Overlying soft tissues appear unremarkable. IMPRESSION: 1. Findings compatible with COPD redemonstrated. 2. No acute cardiopulmonary disease. Dictated by: Bernard Chavez M.D. on 07/27/2022 at 20:22 Approved by: Bernard Chavez M.D. on 07/27/2022 at 20:23
[2022-07-27] MEDS: ALBUTEROL/IPRATROPIUM 3 ML AMPUL INH (19:46)
[2022-07-27 20:03] LABS: Add Manual Diff / Slide Review NO; Basophils Absolute Auto 0 /uL (0-100); Basophils Percent Auto 0.2 % (0-2); Eosinophils Absolute Auto 0 /uL (0-450); Eosinophils Percent Auto 0.1 % (2-4); Hematocrit 39.6 % (36-46); Hemoglobin 13.4 g/dL (12.0-16.0); Lymphocytes Absolute Auto 1600 /uL (1100-4500); Mean Corpuscular HGB Conc 33.8 % (30-36); Mean Corpuscular Hemoglobin 30.6 PG (26-34); Mean Corpuscular Volume 90.6 fL (80-100); Monocytes Absolute Auto 1300 /uL (0-900); Monocytes Percent Auto 9.3 % (3-14); Neutrophils Absolute Auto 11500 /uL (1500-7000); Neutrophils Percent Auto 79.4 % (50-75); Platelet Count 192 X10^3/uL (150-400); Red Blood Cell Count 4.37 X10^6/uL (4.0-5.2); White Blood Cell Count 14.5 X10^3/uL (4.5-11.0)
[2022-07-27 20:10] LABS: Alanine Aminotransferase 24 IU/L (<35); Albumin 4.3 g/dL (3.5-5.0); Albumin Globulin Ratio 1.4 (1.0-2.8); Alkaline Phosphatase 92 U/L (38-126); Aspartate Aminotransferase 30 IU/L (14-36); BUN Creatinine Ratio 33.3 (6-22); Blood Urea Nitrogen 20 mg/dL (7-17); Calcium 9.1 mg/dL (8.4-10.2); Carbon Dioxide 23 mmol/L (22-32); Chloride 99 mmol/L (98-107); Creatine Kinase 32 U/L (30-135); Estimated Glomerular Filt Rate > 60 mL/min (>60); Globulin 3.1 g/dL (1.7-4.1); Glucose 131 mg/dL (80-110); HEMOLYSIS < 15 (0-50); Lipase 26 U/L (23-300); Potassium 3.8 mmol/L (3.4-5.1); Sodium 134 mmol/L (137-145); Total Protein 7.4 g/dL (6.3-8.2)
[2022-07-27] MEDS: methylPREDNISolone 125 MG/2 ML VIAL IV (20:10)
[2022-07-27 20:15] LABS: Magnesium 1.6 mg/dL (1.6-2.3)
[2022-07-27 20:21] LABS: NT-proBNP (BNP-Adult 18+) 262 pg/mL (<450); Troponin I < 0.012 ng/mL (0.01-0.034)
[2022-07-27 20:26] LABS: Procalcitonin 0.09 ng/mL (<0.5)
[2022-07-27 21:16] LABS: Adenovirus Not Detected (Not Detect)
[2022-07-27 21:17] LABS: B. parapertussis Not Detected (Not Detecte); Bordetella pertussis Not Detected (Not Detecte); Chlamydophila pneumoniae Not Detected (Not Detect); Coronavirus 229E Not Detected (Not Detect); Coronavirus HKU1 Not Detected (Not Detect); Coronavirus NL 63 Not Detected (Not Detect); Coronavirus OC43 Not Detected (Not Detect); Human Metapneumovirus Not Detected (Not Detect); Human Rhinovirus/Enterovirus Not Detected (Not Detect); Influenza A Not Detected (Not Detect); Influenza B Not Detected (Not Detect); Mycoplasma pneumoniae Not Detected (Not Detect); Parainfluenza Virus 1 Not Detected (Not Detect); Parainfluenza Virus 2 Not Detected (Not Detect); Parainfluenza Virus 3 Not Detected (Not Detect); Parainfluenza Virus 4 Not Detected (Not Detect); Respiratory Syncytial Virus Not Detected (Not Detect); SARS- CoV-2 Not Detected (Not Detecte)
[2022-07-27] MEDS: levoFLOXacin 250 MG TABLET 750 MG PO (21:56)
== END 2022-07-27 22:17 | disposition home or self-care (01) ==
PROVIDERS: Emergency Provider Emergency Medicine; Family Provider Nurse Practitioner Family; PCP Student in an Organized Health Care Education/Training Program
DX: J44.1 Chronic obstructive pulmonary disease with (acute) exacerbation (principal); Z20.822 Contact with and (suspected) exposure to COVID-19
CPT/HCPCS: 36415; 71045; 80053; 82550; 83690; 83735; 83880; 84145; 84484; 85025; 87633; 93005; 94640; 96374; 99284; J2930

== ENCOUNTER → 2023-09-08 11:20 | Outpatient (CLI) | payer MEDICARE, SELFPAY ==
[2022-03-19 15:29] VITALS: BMI 17.6
== END ==
PROVIDERS: Family Provider Nurse Practitioner Family; PCP Family Medicine; Referring Provider Family Medicine; Visit Provider Family Medicine
DX: R06.02 Shortness of breath (principal); J44.9 Chronic obstructive pulmonary disease, unspecified; U09.9 Post COVID-19 condition, unspecified; F17.210 Nicotine dependence, cigarettes, uncomplicated
CPT/HCPCS: 94060; 94729

== ENCOUNTER 2024-02-15 20:08 | Emergency (ER) | payer MEDICARE, SELFPAY ==
[2022-03-19 15:29] VITALS: BMI 17.6
[2024-02-15] VITALS (13 sets, daily range): BP systolic 115–163; BP diastolic 57–83; PULSE 71–90; RESP 20–28; TEMP 37.2; O2SAT 87–99; BMI 17.4
--- NOTE | 2024-02-15 20:18 | DI.RAD.S_ITS ---
PROCEDURE: XR CHEST 1V INDICATIONS: Shortness of breath TECHNIQUE: One view of the chest was acquired. COMPARISON: [facility], CR, XR CHEST 1V, 07/27/2022, 19:54. [facility], CR, XR CHEST 1V, 02/21/2022, 11:08. FINDINGS: Surgical changes and devices: Cholecystectomy clips. Lungs and pleura: Prominent lung volumes. Bibasilar hazy opacity. No pleural effusions or pneumothorax. Mediastinum: Mediastinal contours appear normal. Heart size is normal. Bones and chest wall: No suspicious bony lesions. Overlying soft tissues appear unremarkable. IMPRESSION: Bibasilar hazy opacity. Favor atelectasis or scarring. Emphysematous change. Dictated by: Niles Zhang M.D. on 02/15/2024 at 20:57 Approved by: Niles Zhang M.D. on 02/15/2024 at 20:58
--- NOTE | 2024-02-15 20:44 | ED.SOB ---
HPI - SOB/Dyspnea General Chief Complaint: Shortness of Breath/Dyspnea Stated Complaint: SOB, O2 in 80percentile, UTI Time Seen by Provider: 02/15/24 20:21 Source: patient Mode of arrival: Wheelchair Limitations: no limitations History of Present Illness HPI Narrative: 83-year-old female with history of COPD, tobacco abuse presents by private vehicle from home for several days of shortness of breath and urinary tract infection. Patient states that she has had urinary frequency and took a home urinalysis test that showed she had an infection. She has had a slight nonproductive cough. Patient reports that when she walks her saturations dropped into the 80s. She has been seen by her primary care physician several times for this and her granddaughter believes that she needs home oxygen, however this has not been arranged by primary care. Related Data Home Medications Medication Instructions Recorded Confirmed calcium polycarbophil 625 mg 2 tab PO BID ##0 10/27/16 01/27/24 tablet (FiberCon) Previous Rx's Medication Instructions Recorded aspirin 81 mg tablet,delayed 81 mg PO DAILY #30 tabs 04/01/22 release (Adult Aspirin Regimen) Disabled Parking Permit #1 ea 08/14/23 albuterol sulfate 90 mcg/actuation 2 puff inhalation Q2HP PRN 10/13/23 aerosol inhaler (Ventolin HFA) breathing #8.5 grams omeprazole 20 mg capsule,delayed 20 mg PO DAILY #30 caps 10/13/23 release budesonide-formoterol HFA 80 2 puff inhalation BID #10.2 grams 10/15/23 mcg-4.5 mcg/actuation aerosol inhaler tiotropium bromide 18 mcg capsule 1 cap inhalation QDAY #90 ea 10/15/23 with inhalation device (Spiriva with HandiHaler) rosuvastatin 5 mg tablet 5 mg PO DAILY #90 tabs 01/15/24 fluoxetine 40 mg capsule 40 mg PO DAILY #90 caps 01/22/24 gabapentin 300 mg capsule 300 mg PO BID #180 caps 01/27/24 prednisone 20 mg tablet 40 mg (2 x 20 mg) PO DAILY #10 tabs 02/15/24 sulfamethoxazole 800 1 tab PO Q12H #14 tabs 02/15/24 mg-trimethoprim 160 mg tablet Allergies Allergy/AdvReac Type Severity Reaction Status Date / Time No Known Drug Allergies Allergy Verified 01/27/24 11:26 Review of Systems Review of Systems Narrative: See HPI Patient History Medical History Spondyloarthritis Smoker unmotivated to quit Hyperlipidemia COPD (chronic obstructive pulmonary disease) Depression GERD without esophagitis Surgical History S/P tonsillectomy S/P cholecystectomy S/P appendectomy Social History household members: family Smoking Status: Current every day smoker alcohol intake: current Smoking Status: Current every day smoker tobacco type: cigarettes alcohol intake frequency: holidays/special occasions only Substance Use Type: does not use Exam Initial Vital Signs Initial Vital Signs: Vital Signs Temperature 99 F 02/15/24 20:11 Pulse Rate 74 02/15/24 20:11 Respiratory Rate 22 02/15/24 20:11 Blood Pressure 153/74 H 02/15/24 20:11 Pulse Oximetry 92 02/15/24 20:11 Oxygen Delivery Method Room Air 02/15/24 20:11 Const: Awake, alert, frail Cardiac: regular rate, regular rhythm RESP: Very poor air movement all lung nunez, no wheezing Skin: Warm, Dry, intact, no rashes Neuro: AO x3, CN II-XII grossly intact, moves all extremities Course Orders Ordered: ED Orders 02/15/24 20:18 XR chest 1V Stat EKG-12 Lead Stat Measure peak expiratory flow ONCE RT Consult Eval and Treat NOW 02/15/24 20:19 Covid-19 + FLU A/B + RSV - PCR Stat 02/15/24 20:48 Complete Blood Count AUTO DIFF Stat Comprehensive Metabolic Panel Stat Lactate (Lactic Acid) Stat NT-proBNP (BNP-Adult 18+) Stat Prothrombin Time INR Stat Troponin I Stat 02/15/24 22:40 Urine Culture Stat Urine Microscopic Stat Discontinued Medications Albuterol/Ipratropium (Albuterol/Ipratropium 3 Ml Ampul) 9 ml INH NOW ONE Stop: 02/15/24 20:45 Last Admin: 02/15/24 21:07 Dose: 9 ml Documented By: IRVING Ceftriaxone Sodium 1,000 mg/ (Sodium Chloride) 100 mls @ 200 mls/hr IV NOW ONE Stop: 02/15/24 22:59 Last Infusion: 02/16/24 00:01 Dose: Infused Documented By: Admin: 02/15/24 23:21 Dose: 200 mls/hr Documented By: DECLAN Methylprednisolone (Methylprednisolone 125 Mg/2 Ml Vial) 125 mg IV NOW ONE Stop: 02/15/24 20:45 Last Admin: 02/15/24 20:59 Dose: 125 mg Documented By: NA Vital Signs Vital signs: Vital Signs - 8 hr 02/15/24 20:11 02/15/24 20:23 02/15/24 20:30 Temperature 99 F Pulse Rate 74 80 80 Respiratory Rate 22 Blood Pressure 153/74 H Pulse Oximetry 92 92 93 Oxygen Delivery Method Room Air 02/15/24 20:50 02/15/24 20:50 02/15/24 21:00 Temperature Pulse Rate 77 76 Respiratory Rate Blood Pressure 138/68 Pulse Oximetry 94 99 Oxygen Delivery Method Room Air 02/15/24 21:00 02/15/24 21:30 02/15/24 21:31 Temperature Pulse Rate 78 71 Respiratory Rate Blood Pressure 149/73 H Pulse Oximetry 93 94 Oxygen Delivery Method 02/15/24 21:31 02/15/24 22:00 02/15/24 22:01 Temperature Pulse Rate 71 78 Respiratory Rate Blood Pressure 115/57 L Pulse Oximetry 93 93 Oxygen Delivery Method Room Air 02/15/24 22:01 02/15/24 22:33 02/15/24 23:11 Temperature Pulse Rate 90 Respiratory Rate 28 H Blood Pressure 163/83 H Pulse Oximetry 87 L 90 L Oxygen Delivery Method 02/15/24 23:12 02/15/24 23:12 02/15/24 23:30 Temperature Pulse Rate 85 Respiratory Rate Blood Pressure 158/78 H 148/64 H Pulse Oximetry 94 Oxygen Delivery Method Room Air 02/15/24 23:30 02/16/24 00:00 Temperature Pulse Rate 81 85 Respiratory Rate 20 Blood Pressure Pulse Oximetry 93 93 Oxygen Delivery Method Room Air Room Air MDM - SOB/Dyspnea Differential Diagnosis Differential diagnosis: Likely acute exacerbation of chronic obstructive airways disease, congestive heart failure and community acquired pneumonia Lab Data 02/15/24 20:48 02/15/24 20:48 Labs: Lab Results 02/15/24 02/15/24 02/15/24 Range/Units 20:19 20:48 22:40 WBC 9.2 (4.5-11.0) X10^3/uL RBC 4.00 (4.0-5.2) X10^6/uL Hgb 12.5 (12.0-16.0) g/dL Hct 37.4 (36-46) % MCV 93.4 (80-100) fL MCH 31.1 (26-34) PG MCHC 33.3 (30-36) % RDW 14.4 (11.6-14.8) % Plt Count 214 (150-400) X10^3/uL Neut % (Auto) 72.0 (50-75) % Lymph % (Auto) 16.2 L (25-40) % [place] % (Auto) 10.4 (3-14) % Eos % (Auto) 0.9 L (2-4) % Baso % (Auto) 0.5 (0-2) % Neut # (Auto) 6600 (2503-8367) /uL Lymph # (Auto) 1500 (6577-3803) /uL [place] # (Auto) 1000 H (0-900) /uL Eos # (Auto) 100 (0-450) /uL Baso # (Auto) 0 (0-100) /uL PT 12.1 (9.4-12.5) SECONDS INR 1.1 (0.9-1.3) Sodium 137 (137-145) mmol/L Potassium 3.5 (3.4-5.1) mmol/L Chloride 106 (98-107) mmol/L Carbon Dioxide 24 (22-32) mmol/L BUN 19 H (7-17) mg/dL Creatinine 0.50 L (0.52-1.04) mg/dL Estimated GFR > 60 (>60) mL/min BUN/Creatinine Ratio 38.0 H (6-22) Glucose 112 H (80-110) mg/dL Lactate 1.3 (0.7-2.1) mmol/L Calcium 9.4 (8.4-10.2) mg/dL Total Bilirubin 0.7 (0.2-1.3) mg/dL AST 29 (14-36) IU/L ALT 20 (<35) IU/L Alkaline Phosphatase 82 (38-126) U/L Troponin I < 0.012 (0.01-0.034) ng/mL NT-Pro-B Natriuret Pep 209 (<450) pg/mL Total Protein 6.9 (6.3-8.2) g/dL Albumin 4.2 (3.5-5.0) g/dL Globulin 2.7 (1.7-4.1) g/dL Albumin/Globulin Ratio 1.6 (1.0-2.8) Urine RBC 1-5/hpf (0-5/HPF) Urine WBC 10-30/hpf H (0-5/HPF) Ur Squamous Epith Cells 1-5 /hpf (0-5/HPF) Urine Bacteria Many (>30) H (None) Urine Mucus 2+ H (Negative) Vol Urine Centrifuged 10ml (spun) SARS-CoV-2 (PCR) Negative (Negative) Influenza A (RT-PCR) Flu a negative (NEGATIVE) Influenza B (RT-PCR) Flu b negative (NEGATIVE) RSV (PCR) Negative (Negative) Urine Dip Bedside Urine Glucose Negative Bedside Urine Bilirubin - Negative Bedside Urine Ketone +/- 5 Urine Specific [place] 1.030 Bedside Urine Occult Blood + Bedside Urine pH 6.0 Bedside Urine Protein + 30 Bedside Urine Urobilinogen - Negative Bedside Urine Nitrite + Positive Bedside Urine Leukocytes + 70 Esterase Imaging Data Chest x-ray: Radiologist's Impression: PROCEDURE: XR CHEST 1V INDICATIONS: Shortness of breath TECHNIQUE: One view of the chest was acquired. COMPARISON: [facility], XR CHEST 1V, 07/27/2022, 19:54. [facility], XR CHEST 1V, 02/21/2022, 11:08. FINDINGS: Surgical changes and devices: Cholecystectomy clips. Lungs and pleura: Prominent lung volumes. Bibasilar hazy opacity. No pleural effusions or pneumothorax. Mediastinum: Mediastinal contours appear normal. Heart size is normal. Bones and chest wall: No suspicious bony lesions. Overlying soft tissues appear unremarkable. IMPRESSION: Bibasilar hazy opacity. Favor atelectasis or scarring. Emphysematous change. Dictated by: Niles Zhang M.D. on 02/15/2024 at 20:57 Approved by: Niles Zhang M.D. on 02/15/2024 at 20:58 MDM Narrative Medical decision making narrative: Upper respiratory infection and urinary tract infection. Patient has COPD, still actively smokes, has very poor air movement on pulmonary exam. She was saturating in the low 90s on room air while at rest, which is appropriate for COPD. Laboratory work, x-ray imaging ordered. Laboratory work is reviewed, WBC count 9.2, hemoglobin 12.5, platelets 214, sodium 137, potassium 3.5, creatinine 0.5, troponin undetectable, BNP 209. Chest x-ray shows bilateral findings favored to be atelectasis. With normal white blood cell count and no neutrophil predominance agree this is likely atelectasis rather than pneumonia. Patient received nebulizers, steroids, 1 g of Rocephin. Air movement increased after nebulizer treatments and patient reports improvement in her symptoms. Urinalysis positive for signs of infection. She was already been given Rocephin. Patient taken on ambulatory road test, her saturations dipped as low as 87% while ambulating with a walker. All labs and imaging discussed with the patient and her granddaughter at bedside. I did recommend admission for home O2 evaluation and treatment of COPD exacerbation. Patient adamantly declined stating that she did not want to be in the hospital under any circumstances and wanted to go home. Patient does state that she has had ambulatory O2 sats in the 80s for a while and has been seen by her primary care physician. Respiratory therapy was able to evaluate the patient and as a compromise an oxygen tank was sent with the patient for when she ambulates, however this tank we will need to be returned. We will treat patient as COPD exacerbation with continued steroids and Bactrim, which should cover COPD exacerbation and urinary tract pathogens. ED return precautions discussed at bedside. Patient declined refill of nebulizers. Discharge Plan Departure Patient Disposition: Home Clinical Impression: Acute exacerbation of chronic obstructive airways disease, Acute UTI Instructions: DI for Chronic Obstructive Pulmonary Disease, DI for Urinary Tract Infection (UTI) Activity Restrictions/Additional Instructions: Finish all medications as prescribed. Please follow up with your primary care physician for further discussion of home oxygen. Please return to the emergency department if you feel worse or do not notice improvement. Prescriptions: New prednisone 20 mg tablet 40 mg PO DAILY Qty: 10 0RF sulfamethoxazole-trimethoprim 800-160 mg tablet 1 tab PO Q12H Qty: 14 0RF No Action calcium polycarbophil [FiberCon] 625 MG tablet 2 tab PO BID Qty: 0 (DME) Disabled Parking Permit See Rx Instructions .ROUTE .MEDSUPPLY Qty: 1 0RF Rx Instructions: Valid for 5 years omeprazole 20 mg capsule,delayed release(DR/EC) 20 mg PO DAILY Qty: 30 5RF albuterol sulfate [Ventolin HFA] 90 mcg/actuation HFA aerosol inhaler 2 puff inhalation Q2HP PRN (Reason: breathing) Qty: 8.5 0RF budesonide-formoterol 80-4.5 mcg/actuation HFA aerosol inhaler 2 puff inhalation BID Qty: 10.2 0RF Spiriva with HandiHaler 18 mcg capsule, w/inhalation device 1 cap inhalation QDAY Qty: 90 3RF rosuvastatin 5 mg tablet 5 mg PO DAILY Qty: 90 0RF fluoxetine 40 mg capsule 40 mg PO DAILY Qty: 90 1RF aspirin [Adult Aspirin Regimen] 81 mg tablet,delayed release (DR/EC) 81 mg PO DAILY Qty: 30 5RF gabapentin 300 mg capsule 300 mg PO BID Qty: 180 3RF Referrals: Cornelia Higginbotham DO [Primary Care Provider] - Stand Alone Forms: Patient Portal/API
[2024-02-15] MEDS: methylPREDNISolone 125 MG/2 ML VIAL IV (20:59)
[2024-02-15 21:02] LABS: Add Manual Diff / Slide Review NO; Basophils Absolute Auto 0 /uL (0-100); Basophils Percent Auto 0.5 % (0-2); Eosinophils Absolute Auto 100 /uL (0-450); Eosinophils Percent Auto 0.9 % (2-4); Hematocrit 37.4 % (36-46); Hemoglobin 12.5 g/dL (12.0-16.0); Lymphocytes Absolute Auto 1500 /uL (1100-4500); Lymphocytes Percent Auto 16.2 % (25-40); Mean Corpuscular HGB Conc 33.3 % (30-36); Mean Corpuscular Hemoglobin 31.1 PG (26-34); Mean Corpuscular Volume 93.4 fL (80-100); Monocytes Absolute Auto 1000 /uL (0-900); Monocytes Percent Auto 10.4 % (3-14); Neutrophils Absolute Auto 6600 /uL (1500-7000); Platelet Count 214 X10^3/uL (150-400); Red Cell Distribution Width 14.4 % (11.6-14.8); White Blood Cell Count 9.2 X10^3/uL (4.5-11.0)
[2024-02-15 21:05] LABS: Influenza A - CEPHEID Flu A NEGATIVE (NEGATIVE); Influenza B - CEPHEID Flu B NEGATIVE (NEGATIVE); Respiratory Syncytial Virus Negative (Negative)
[2024-02-15 21:07] LABS: INR 1.1 (0.9-1.3); Prothrombin Time 12.1 SECONDS (9.4-12.5)
[2024-02-15] MEDS: ALBUTEROL/IPRATROPIUM 3 ML AMPUL 9 ML INH (21:07)
[2024-02-15 21:12] LABS: COVID-19 CEPHEID 4-PLEX PCR Negative (Negative)
[2024-02-15 21:12] LABS: Alanine Aminotransferase 20 IU/L (<35); Albumin 4.2 g/dL (3.5-5.0); Albumin Globulin Ratio 1.6 (1.0-2.8); Alkaline Phosphatase 82 U/L (38-126); Aspartate Aminotransferase 29 IU/L (14-36); Bilirubin Total 0.7 mg/dL (0.2-1.3); Blood Urea Nitrogen 19 mg/dL (7-17); Calcium 9.4 mg/dL (8.4-10.2); Carbon Dioxide 24 mmol/L (22-32); Chloride 106 mmol/L (98-107); Estimated Glomerular Filt Rate > 60 mL/min (>60); Globulin 2.7 g/dL (1.7-4.1); Glucose 112 mg/dL (80-110); HEMOLYSIS < 15 (0-50); Potassium 3.5 mmol/L (3.4-5.1); Sodium 137 mmol/L (137-145); Total Protein 6.9 g/dL (6.3-8.2)
[2024-02-15 21:13] LABS: Lactate (Lactic Acid) 1.3 mmol/L (0.7-2.1)
[2024-02-15 21:24] LABS: NT-proBNP (BNP-Adult 18+) 209 pg/mL (<450); Troponin I < 0.012 ng/mL (0.01-0.034)
[2024-02-15 23:01] LABS: Bacteria Urine Many (>30); Mucus Urine 2+ (Negative); RBC Urine 1-5/HPF (0-5/HPF); Squamous Epithelial Cell Urine 1-5 /HPF (0-5/HPF); Urine Volume 10mL (spun); WBC Urine 10-30/HPF (0-5/HPF)
[2024-02-15] MEDS: cefTRIAXone 1,000 MG in SODIUM CHLORIDE 0.9% 100 ML 200 MG IV (23:21)
[2024-02-16] VITALS: PULSE 85; O2SAT 93
== END 2024-02-16 00:31 | disposition home or self-care (01) ==
PROVIDERS: Emergency Provider Emergency Medicine; Family Provider Nurse Practitioner Family; PCP Family Medicine
DX: J44.1 Chronic obstructive pulmonary disease with (acute) exacerbation (principal); N39.0 Urinary tract infection, site not specified
CPT/HCPCS: 0241U; 36415; 71045; 80053; 81003; 81015; 83605; 83880; 84484; 85025; 85610; 87086; 93005; J0696; J2919

== ENCOUNTER 2024-02-16 06:56 | Observation (INO) | payer MEDICARE, SELFPAY ==
[2022-03-19 15:29] VITALS: BMI 17.6
[2024-02-16] VITALS (15 sets, daily range): BP systolic 119–149; BP diastolic 54–88; PULSE 76–89; RESP 19–25; TEMP 36.5–37.2; O2SAT 92–98; BMI 17.4
--- NOTE | 2024-02-16 07:00 | DI.CT.S_ITS ---
PROCEDURE: CT CERVICAL SPINE WO CON INDICATIONS: GLF, HEAD INJURY TECHNIQUE: Noncontrast 3 mm thick sections acquired from the skull base to the T4 level. Sagittal and coronal reformats were then constructed. For radiation dose reduction, the following was used: automated exposure control, adjustment of mA and/or kV according to patient size. COMPARISON: None. FINDINGS: Image quality: Excellent. Bones: No fractures or dislocations. Visualized superior ribs are intact. Diffuse spondylitic change. With multilevel bilateral facet arthropathy. There is also multilevel uncovertebral joint hypertrophy with associated bony foraminal narrowing. The bones are diffusely osteopenic. Soft tissues: Prevertebral soft tissues are normal in thickness. No paravertebral hematomas. No apical pneumothoraces. Severe biapical emphysematous change. IMPRESSION: 1. No acute cervical fracture or dislocation noted. 2. Severe cervical spondylosis. 3. Severe emphysematous change. 4. Diffuse osteopenia. Dictated by: Williams Castillo M.D. on 02/16/2024 at 7:54 Approved by: Williams Castillo M.D. on 02/16/2024 at 7:56
--- NOTE | 2024-02-16 07:00 | DI.CT.S_ITS ---
PROCEDURE: CT HEAD/BRAIN WO CON INDICATIONS: GLF, HEAD INJURY TECHNIQUE: Noncontrast 4.5 mm thick angled axial sections acquired from the foramen magnum to the vertex, with coronal and sagittal reformats. For radiation dose reduction, the following was used: automated exposure control, adjustment of mA and/or kV according to patient size. COMPARISON: [facility], CT, HEAD WITHOUT CONTRAST, 12/23/2017, 11:06. FINDINGS: Image quality: Diagnostic. CSF spaces: Basal cisterns are patent. No extra-axial fluid collections. The ventricles are symmetric in size and shape. Brain: No intracranial bleeds or masses. There is cerebral volume loss for age, with resultant ventricular and sulcal prominence. There are periventricular and deep white matter chronic small vessel ischemic changes. There is intracranial internal carotid artery atherosclerosis. Skull and face: Calvarium and visualized facial bones appear intact, without suspicious lesions. Sinuses: Visualized sinuses and mastoids are clear. IMPRESSION: No acute intracranial pathology. Dictated by: Williams Castillo M.D. on 02/16/2024 at 7:53 Approved by: Williams Castillo M.D. on 02/16/2024 at 7:53
--- NOTE | 2024-02-16 07:15 | DI.RAD.S_ITS ---
PROCEDURE: XR LUMBAR SPINE 2-3V INDICATIONS: Pain after fall TECHNIQUE: 3 views of the lumbar spine were acquired. COMPARISON: [facility], CR, XR LUMBAR SPINE 2-3V, 12/09/2021, 11:38. FINDINGS: Bones: 5 [id number] vertebrae are present. Mild to moderate dextro curvature centered at L2-L3. Trace anterolisthesis of L3 on L4 and L4 on L5. Multilevel degenerative disc space loss and prominent lower lumbar facet arthropathy. Suspect canal stenosis. No vertebral body compression fractures. No suspicious bony lesions. Soft tissues: Overlying bowel gas pattern is normal. No suspicious soft tissue calcifications. IMPRESSION: 1. No acute compression fracture noted. 2. Diffuse degenerative change. Dictated by: Williams Castillo M.D. on 02/16/2024 at 7:56 Approved by: Williams Castillo M.D. on 02/16/2024 at 8:03
--- NOTE | 2024-02-16 07:16 | ED_ITS ---
HPI - General Adult General Chief complaint: Shortness of Breath/Dyspnea Stated complaint: GLF Time Seen by Provider: 02/16/24 06:56 Source: patient and EMS Mode of arrival: EMS History of Present Illness HPI narrative: 83-year-old female was brought in by EMS for evaluation of a ground level fall. Patient was seen here in the emergency department last evening. Was found to be hypoxic. Requiring oxygen. It was recommended that she be admitted to the hospital but she did not want to be admitted because the individual that she was with needed to go home. He was arranged for her to go home with some oxygen. She states that this morning she woke up. She was lightheaded. States she had a ?weird? feeling. She states she fell. She did hit her head. No loss of consciousness. Is also having some back pain. No arm pain or leg pain. When EMS arrived they found her to be hypoxic into the 80s. He was not wearing her oxygen. She can not give a specific reason as to why she was not wearing the oxygen. She was not on blood thinners Related Data Home Medications Medication Instructions Recorded Confirmed calcium polycarbophil 625 mg 2 tab PO BID ##0 10/27/16 01/27/24 tablet (FiberCon) Previous Rx's Medication Instructions Recorded aspirin 81 mg tablet,delayed 81 mg PO DAILY #30 tabs 04/01/22 release (Adult Aspirin Regimen) Disabled Parking Permit #1 ea 08/14/23 albuterol sulfate 90 mcg/actuation 2 puff inhalation Q2HP PRN 10/13/23 aerosol inhaler (Ventolin HFA) breathing #8.5 grams omeprazole 20 mg capsule,delayed 20 mg PO DAILY #30 caps 10/13/23 release budesonide-formoterol HFA 80 2 puff inhalation BID #10.2 grams 10/15/23 mcg-4.5 mcg/actuation aerosol inhaler tiotropium bromide 18 mcg capsule 1 cap inhalation QDAY #90 ea 10/15/23 with inhalation device (Spiriva with HandiHaler) rosuvastatin 5 mg tablet 5 mg PO DAILY #90 tabs 01/15/24 fluoxetine 40 mg capsule 40 mg PO DAILY #90 caps 01/22/24 gabapentin 300 mg capsule 300 mg PO BID #180 caps 01/27/24 prednisone 20 mg tablet 40 mg (2 x 20 mg) PO DAILY #10 tabs 02/15/24 sulfamethoxazole 800 1 tab PO Q12H #14 tabs 02/15/24 mg-trimethoprim 160 mg tablet Allergies Allergy/AdvReac Type Severity Reaction Status Date / Time No Known Drug Allergies Allergy Verified 01/27/24 11:26 Review of Systems Cardiovascular Cardiovascular: Reports as per HPI Respiratory Respiratory: Reports as per HPI Musculoskeletal Musculoskeletal: Reports system reviewed and no additional complaints, except as documented Neurologic Neurologic: Reports system reviewed and no additional complaints, except as documented Hematologic/Lymphatic On Anticoagulants: No Patient History Medical History Spondyloarthritis Smoker unmotivated to quit Hyperlipidemia COPD (chronic obstructive pulmonary disease) Depression GERD without esophagitis Surgical History S/P tonsillectomy S/P cholecystectomy S/P appendectomy Social History household members: family Smoking Status: Current every day smoker alcohol intake: current Smoking Status: Current every day smoker tobacco type: cigarettes alcohol intake frequency: holidays/special occasions only Substance Use Type: does not use Exam Initial Vital Signs Initial Vital Signs: Vital Signs Pulse Rate 81 02/16/24 07:01 Respiratory Rate 20 02/16/24 07:01 Pulse Oximetry 95 02/16/24 07:01 Oxygen Delivery Method Nasal Cannula 02/16/24 07:01 Oxygen Flow Rate 4 02/16/24 07:01 Const General: cooperative HENMT Head: normal to inspection and normocephalic Resp Effort & Inspection: no cough, not labored and tachypneic Auscultation: clear to auscultation bilaterally Cardio Rate: regular rate Back/Spine/Pelvis Cervical Spine: No cervical spinal tenderness Thoracic/Lumbar Spine: No thoracic spinal tenderness and lumbar spinal tenderness Neuro General: patient alert, patient awake, patient oriented x3 and moves all extremities Speech: speech normal Extrem General: capillary refill normal Course Orders Ordered: ED Orders 02/16/24 07:00 CT cervical spine wo con Stat CT head/brain wo con Stat Complete Blood Count AUTO DIFF Stat Comprehensive Metabolic Panel Stat Lipase Stat Magnesium Stat NT-proBNP (BNP-Adult 18+) Stat Procalcitonin Stat Troponin & CK Cardiac Panel Stat 02/16/24 07:15 XR lumbar spine 2-3V Stat 02/16/24 07:48 EKG-12 Lead Stat 02/16/24 09:21 Respiratory Panel (Film Array) Stat EKG-12 Lead Stat 02/16/24 09:38 Arterial Blood Gas Stat Discontinued Medications Methylprednisolone (Methylprednisolone 125 Mg/2 Ml Vial) 125 mg IV NOW ONE Stop: 02/16/24 09:21 Last Admin: 02/16/24 10:02 Dose: 125 mg Documented By: NOLVIA Vital Signs Vital signs: Vital Signs - 8 hr 02/16/24 07:01 02/16/24 07:02 02/16/24 07:02 Temperature Pulse Rate 81 80 Respiratory Rate 20 20 Blood Pressure 130/62 Pulse Oximetry 95 95 Oxygen Delivery Method Nasal Cannula Oxygen Flow Rate 4 02/16/24 07:05 02/16/24 07:36 02/16/24 07:41 Temperature 98.3 F Pulse Rate 80 78 Respiratory Rate 25 H 20 Blood Pressure 130/62 119/65 Pulse Oximetry 95 97 Oxygen Delivery Method Nasal Cannula Nasal Cannula Oxygen Flow Rate 4 4 02/16/24 07:41 02/16/24 08:00 02/16/24 08:00 Temperature Pulse Rate 76 76 Respiratory Rate 19 20 Blood Pressure 120/54 L Pulse Oximetry 98 97 Oxygen Delivery Method Nasal Cannula Nasal Cannula Oxygen Flow Rate 4 4 02/16/24 08:30 02/16/24 08:30 Temperature Pulse Rate 78 Respiratory Rate 21 Blood Pressure 120/57 L Pulse Oximetry 96 Oxygen Delivery Method Nasal Cannula Oxygen Flow Rate 4 Medical Decision Making Lab Data Lab results reviewed: Yes I reviewed the patient's lab results. 02/16/24 07:00 02/16/24 07:00 Labs: Lab Results 02/16/24 Range/Units 07:00 WBC 9.2 (4.5-11.0) X10^3/uL RBC 4.25 (4.0-5.2) X10^6/uL Hgb 13.3 (12.0-16.0) g/dL Hct 39.8 (36-46) % MCV 93.6 (80-100) fL MCH 31.3 (26-34) PG MCHC 33.4 (30-36) % RDW 13.9 (11.6-14.8) % Plt Count 251 (150-400) X10^3/uL Neut % (Auto) 93.3 H D (50-75) % Lymph % (Auto) 4.3 L (25-40) % [place] % (Auto) 2.3 L (3-14) % Eos % (Auto) 0.0 L (2-4) % Baso % (Auto) 0.1 (0-2) % Neut # (Auto) 8600 H (2932-4582) /uL Lymph # (Auto) 400 L (1441-7970) /uL [place] # (Auto) 200 (0-900) /uL Eos # (Auto) 0 (0-450) /uL Baso # (Auto) 0 (0-100) /uL Sodium 138 (137-145) mmol/L Potassium 4.1 (3.4-5.1) mmol/L Chloride 106 (98-107) mmol/L Carbon Dioxide 22 (22-32) mmol/L BUN 20 H (7-17) mg/dL Creatinine 0.56 (0.52-1.04) mg/dL Estimated GFR > 60 (>60) mL/min BUN/Creatinine Ratio 35.7 H (6-22) Glucose 260 H D (80-110) mg/dL Calcium 9.6 (8.4-10.2) mg/dL Magnesium 2.1 (1.6-2.3) mg/dL Total Bilirubin 0.5 (0.2-1.3) mg/dL AST 46 H (14-36) IU/L ALT 23 (<35) IU/L Alkaline Phosphatase 91 (38-126) U/L Total Creatine Kinase 60 (30-135) U/L Troponin I < 0.012 (0.01-0.034) ng/mL NT-Pro-B Natriuret Pep 482 H (<450) pg/mL Total Protein 7.4 (6.3-8.2) g/dL Albumin 4.6 (3.5-5.0) g/dL Globulin 2.8 (1.7-4.1) g/dL Albumin/Globulin Ratio 1.6 (1.0-2.8) Lipase 20 L (23-300) U/L Procalcitonin 0.07 (<0.5) ng/mL Imaging Data CT scan - head: Radiologist's Impression: PROCEDURE: CT HEAD/BRAIN WO CON INDICATIONS: GLF, HEAD INJURY TECHNIQUE: Noncontrast 4.5 mm thick angled axial sections acquired from the foramen magnum to the vertex, with coronal and sagittal reformats. For radiation dose reduction, the following was used: automated exposure control, adjustment of mA and/or kV according to patient size. COMPARISON: [facility], CT, HEAD WITHOUT CONTRAST, 12/23/2017, 11:06. FINDINGS: Image quality: Diagnostic. CSF spaces: Basal cisterns are patent. No extra-axial fluid collections. The ventricles are symmetric in size and shape. Brain: No intracranial bleeds or masses. There is cerebral volume loss for age, with resultant ventricular and sulcal prominence. There are periventricular and deep white matter chronic small vessel ischemic changes. There is intracranial internal carotid artery atherosclerosis. Skull and face: Calvarium and visualized facial bones appear intact, without suspicious lesions. Sinuses: Visualized sinuses and mastoids are clear. IMPRESSION: No acute intracranial pathology. CT - cervical spine: Radiologist's Impression: PROCEDURE: CT CERVICAL SPINE WO CON INDICATIONS: GLF, HEAD INJURY TECHNIQUE: Noncontrast 3 mm thick sections acquired from the skull base to the T4 level. Sagittal and coronal reformats were then constructed. For radiation dose reduction, the following was used: automated exposure control, adjustment of mA and/or kV according to patient size. COMPARISON: None. FINDINGS: Image quality: Excellent. Bones: No fractures or dislocations. Visualized superior ribs are intact. Diffuse spondylitic change. With multilevel bilateral facet arthropathy. There is also multilevel uncovertebral joint hypertrophy with associated bony foraminal narrowing. The bones are diffusely osteopenic. Soft tissues: Prevertebral soft tissues are normal in thickness. No paravertebral hematomas. No apical pneumothoraces. Severe biapical emphysematous change. IMPRESSION: 1. No acute cervical fracture or dislocation noted. 2. Severe cervical spondylosis. 3. Severe emphysematous change. 4. Diffuse osteopenia. lumbar x-ray: Radiologist's Impression: PROCEDURE: XR LUMBAR SPINE 2-3V INDICATIONS: Pain after fall TECHNIQUE: 3 views of the lumbar spine were acquired. COMPARISON: [facility], CR, XR LUMBAR SPINE 2-3V, 12/09/2021, 11:38. FINDINGS: Bones: 5 [id number] vertebrae are present. Mild to moderate dextro curvature centered at L2-L3. Trace anterolisthesis of L3 on L4 and L4 on L5. Multilevel degenerative disc space loss and prominent lower lumbar facet arthropathy. Suspect canal stenosis. No vertebral body compression fractures. No suspicious bony lesions. Soft tissues: Overlying bowel gas pattern is normal. No suspicious soft tissue calcifications. IMPRESSION: 1. No acute compression fracture noted. 2. Diffuse degenerative change. ECG Data Attestation: I personally reviewed and interpreted this ECG as follows: Interpretation: Sinus rhythm Ventricular rate is 77 Occasional PVC Normal QRS No ST T wave changes MDM Narrative Medical decision making narrative: Patient's CT scans and x-rays today show no acute pathology. He was not wearing her oxygen this morning and per EMS she was hypoxic. We discussed her imaging studies. I then had a discussion with her regarding her breathing. She once again stated that she does not want to be admitted to the hospital. She has oxygen at home that was provided to her last evening. She stated that she would contact her primary doctor and work on getting long-term oxygen at home. I offered him admission to the hospital today and I recommended admission to the hospital today based on her breathing but she does not want to be admitted. She was alert and oriented x3. GCS of 15. In my opinion has capacity to make decisions. She was instructed that she can return to the emergency department at any point for new or worsening symptoms and I encouraged her to wear her oxygen at home. Prior to discharge patient was unable to obtain a ride home where she could have her oxygen. She was re-evaluated by Respiratory therapy. Upon ambulation she required 5 L of oxygen by nasal cannula in order to keep her oxygen saturations greater than 90%. The went back in and talked with the patient. Informed her that I really feel that she should be admitted to the hospital given her oxygen saturations. I discussed my concerns about her being able to manage her oxygen at home with the 1 tank that she was given last evening. After this discussion the patient then agreed to be admitted to the hospital. I do think that this is the best decision for her. I discussed the case with Dr. Singletary hospitalist on-call who will admit for COPD exacerbation and hypoxia. Discharge Plan Departure Patient Disposition: Admitted As Inpatient Clinical Impression: Closed head injury, Hypoxia, COPD exacerbation Admit Date/Time: 02/16/24 09:27 Admit Provider: Simone Singletary
[2024-02-16 09:28] LABS: Add Manual Diff / Slide Review NO; Basophils Absolute Auto 0 /uL (0-100); Basophils Percent Auto 0.1 % (0-2); Eosinophils Absolute Auto 0 /uL (0-450); Hematocrit 39.8 % (36-46); Hemoglobin 13.3 g/dL (12.0-16.0); Lymphocytes Absolute Auto 400 /uL (1100-4500); Lymphocytes Percent Auto 4.3 % (25-40); Mean Corpuscular HGB Conc 33.4 % (30-36); Mean Corpuscular Hemoglobin 31.3 PG (26-34); Mean Corpuscular Volume 93.6 fL (80-100); Monocytes Absolute Auto 200 /uL (0-900); Monocytes Percent Auto 2.3 % (3-14); Neutrophils Absolute Auto 8600 /uL (1500-7000); Neutrophils Percent Auto 93.3 % (50-75); Platelet Count 251 X10^3/uL (150-400); Red Blood Cell Count 4.25 X10^6/uL (4.0-5.2); Red Cell Distribution Width 13.9 % (11.6-14.8); White Blood Cell Count 9.2 X10^3/uL (4.5-11.0)
[2024-02-16 09:48] LABS: Magnesium 2.1 mg/dL (1.6-2.3)
[2024-02-16 09:49] LABS: Alanine Aminotransferase 23 IU/L (<35); Albumin 4.6 g/dL (3.5-5.0); Albumin Globulin Ratio 1.6 (1.0-2.8); Alkaline Phosphatase 91 U/L (38-126); Aspartate Aminotransferase 46 IU/L (14-36); BUN Creatinine Ratio 35.7 (6-22); Bilirubin Total 0.5 mg/dL (0.2-1.3); Blood Urea Nitrogen 20 mg/dL (7-17); Calcium 9.6 mg/dL (8.4-10.2); Carbon Dioxide 22 mmol/L (22-32); Chloride 106 mmol/L (98-107); Creatine Kinase 60 U/L (30-135); Estimated Glomerular Filt Rate > 60 mL/min (>60); Globulin 2.8 g/dL (1.7-4.1); Glucose 260 mg/dL (80-110); HEMOLYSIS 18 (0-50); Lipase 20 U/L (23-300); Potassium 4.1 mmol/L (3.4-5.1); Sodium 138 mmol/L (137-145); Total Protein 7.4 g/dL (6.3-8.2)
[2024-02-16 09:50] LABS: Allen Test for ABG Passed? Yes, Passed; Blood Gas Collection Site Right Radial; Fractionated Inspired Oxygen 34; HCO3 ABG 23 mmol/L (23-27); Oxygen Saturation ABG 97 % (95-100); PCO2 ABG 35.9 mmHg (35-45); PO2 ABG 85 mmHg (80-100); TCO2 ABG 24 mmol/L (23-27); pH ABG 7.41 (7.35-7.45)
[2024-02-16 10:01] LABS: NT-proBNP (BNP-Adult 18+) 482 pg/mL (<450); Troponin I < 0.012 ng/mL (0.01-0.034)
[2024-02-16] MEDS: methylPREDNISolone 125 MG/2 ML VIAL IV (10:02)
[2024-02-16 10:06] LABS: Procalcitonin 0.07 ng/mL (<0.5)
--- NOTE | 2024-02-16 10:32 | PC.NURSE ---
Ambulation trial this morning with RT. Pt O2 sat dropped to 85/86% on 3L O2. During recovery period, pt sitting on the bed with O2 @ 88% on 4L.
--- NOTE | 2024-02-16 11:19 | PM.HP.1 ---
History of Present Illness History of Present Illness Date Patient Seen: 02/16/24 Time Patient Seen: 13:30 Chief complaint: GLF Narrative: The patient is a pleasant 83-year-old female brought in after ground level fall. She was seen in the ER last night for COPD exacerbation and acute hypoxia. At that time, she declined admission and was sent home with oxygen. The patient apparently was not wearing her oxygen last night where she lives alone in an apartment. She then apparently had a fall at home and ultimately was able to call for help. She was brought to the emergency department by ambulance. She notes that when she woke up this morning she was lightheaded and felt odd. She did hit her head but denies any loss of consciousness. Upon her arrival she would minor lower back pain which has since improved. No extremity trauma or pain. EMS did note her SaO2 to be in the low 80s on room air. The patient improved with corticosteroids and nebulizers in the emergency department. She does have a long history of smoking but has recently quit. She does not use home oxygen. She has been ill for about 1 week with URI symptoms including some rhinorrhea, and a cough which is intermittently productive of sputum. She denies any chest pain, leg edema or orthopnea. No nausea, vomiting, or diarrhea. [facility] Medical History Spondyloarthritis Smoker unmotivated to quit Hyperlipidemia COPD (chronic obstructive pulmonary disease) Depression GERD without esophagitis Surgical History S/P tonsillectomy S/P cholecystectomy S/P appendectomy Social History household members: family Smoking Status: Current every day smoker alcohol intake: current Meds Home Medications and Allergies Home Medications Medication Instructions Recorded Confirmed Type calcium polycarbophil 625 mg 2 tab PO BID ##0 10/27/16 02/16/24 History tablet (FiberCon) aspirin 81 mg tablet,delayed 81 mg PO DAILY #30 tabs 04/01/22 02/16/24 Rx release (Adult Aspirin Regimen) Disabled Parking Permit #1 ea 08/14/23 02/16/24 Rx albuterol sulfate 90 mcg/actuation 2 puff inhalation Q2HP PRN 10/13/23 02/16/24 Rx aerosol inhaler (Ventolin HFA) breathing #8.5 grams omeprazole 20 mg capsule,delayed 20 mg PO DAILY #30 caps 10/13/23 02/16/24 Rx release budesonide-formoterol HFA 80 2 puff inhalation BID #10.2 grams 10/15/23 02/16/24 Rx mcg-4.5 mcg/actuation aerosol inhaler tiotropium bromide 18 mcg capsule 1 cap inhalation QDAY #90 ea 10/15/23 02/16/24 Rx with inhalation device (Spiriva with HandiHaler) rosuvastatin 5 mg tablet 5 mg PO DAILY #90 tabs 01/15/24 02/16/24 Rx fluoxetine 40 mg capsule 40 mg PO DAILY #90 caps 01/22/24 02/16/24 Rx gabapentin 300 mg capsule 300 mg PO BID #180 caps 01/27/24 02/16/24 Rx prednisone 20 mg tablet 40 mg (2 x 20 mg) PO DAILY #10 tabs 02/15/24 02/16/24 Rx Allergies Allergy/AdvReac Type Severity Reaction Status Date / Time No Known Drug Allergies Allergy Verified 01/27/24 11:26 Review of Systems Review of Systems Narrative: All else reviewed and otherwise unremarkable except as noted in the history and physical. Exam Vital Signs (past 8 hours): - 02/16/24 07:01 02/16/24 07:02 02/16/24 07:02 Temperature Pulse Rate 81 80 Respiratory Rate 20 20 Blood Pressure 130/62 Pulse Oximetry 95 95 Oxygen Delivery Method Nasal Cannula Oxygen Flow Rate 4 02/16/24 07:05 02/16/24 07:36 02/16/24 07:41 Temperature 98.3 F Pulse Rate 80 78 Respiratory Rate 25 H 20 Blood Pressure 130/62 119/65 Pulse Oximetry 95 97 Oxygen Delivery Method Nasal Cannula Nasal Cannula Oxygen Flow Rate 4 4 02/16/24 07:41 02/16/24 08:00 02/16/24 08:00 Temperature Pulse Rate 76 76 Respiratory Rate 19 20 Blood Pressure 120/54 L Pulse Oximetry 98 97 Oxygen Delivery Method Nasal Cannula Nasal Cannula Oxygen Flow Rate 4 4 02/16/24 08:30 02/16/24 08:30 02/16/24 10:13 Temperature Pulse Rate 78 89 Respiratory Rate 21 20 Blood Pressure 120/57 L 125/87 Pulse Oximetry 96 96 Oxygen Delivery Method Nasal Cannula Nasal Cannula Oxygen Flow Rate 4 4 02/16/24 10:24 02/16/24 10:49 Temperature 98.9 F Pulse Rate 88 80 Respiratory Rate 20 20 Blood Pressure 130/88 148/80 H Pulse Oximetry 96 95 Oxygen Delivery Method Nasal Cannula Oxygen Flow Rate 4 4 Oxygen Delivery Method Nasal Cannula Oxygen Flow Rate 4 Narrative Exam Narrative: NAD, alert and oriented, fluent speech, calm. Normocephalic skull, EOMI, anicteric sclera, symmetric pupils. Oropharynx unremarkable, no droop. Neck supple, midline trachea, no adenopathy. Lungs are with greatly diminished breath sounds globally and prolonged expiration with some expiratory wheezing. Normal rate and slight increased effort. Heart regular, no murmur gallop or rub. Abdomen is soft, non distended and non tender. Extremities are free of edema. Skin is free of rash or lesions. Joints are not swollen or deformed. Judgment appears to be normal. Objective ECG Impression: Sinus rhythm Ventricular rate is 77 Occasional PVC Normal QRS No ST T wave changes Imaging Multiple studies:: Radiologist's impression: CT Brain: No acute intracranial pathology. CT Cervical Spine: 1. No acute cervical fracture or dislocation noted. 2. Severe cervical spondylosis. 3. Severe emphysematous change. 4. Diffuse osteopenia. Lumbar Xray: 1. No acute compression fracture noted. 2. Diffuse degenerative change. Labs 02/16/24 07:00 02/16/24 07:00 Labs: Laboratory Results - last 24 hr 02/16/24 02/16/24 07:00 09:38 WBC 9.2 RBC 4.25 Hgb 13.3 Hct 39.8 MCV 93.6 MCH 31.3 MCHC 33.4 RDW 13.9 Plt Count 251 Neut % (Auto) 93.3 H D Lymph % (Auto) 4.3 L [place] % (Auto) 2.3 L Eos % (Auto) 0.0 L Baso % (Auto) 0.1 Neut # (Auto) 8600 H Lymph # (Auto) 400 L [place] # (Auto) 200 Eos # (Auto) 0 Baso # (Auto) 0 ABG Sample Site Right radial ABG pH 7.41 ABG pCO2 35.9 ABG pO2 85 ABG HCO3 23 ABG Total CO2 24 ABG O2 Saturation 97 ABG Base Excess -2.0 FiO2 34 Sodium 138 Potassium 4.1 Chloride 106 Carbon Dioxide 22 BUN 20 H Creatinine 0.56 Estimated GFR > 60 BUN/Creatinine Ratio 35.7 H Glucose 260 H D Calcium 9.6 Magnesium 2.1 Total Bilirubin 0.5 AST 46 H ALT 23 Alkaline Phosphatase 91 Total Creatine Kinase 60 Troponin I < 0.012 NT-Pro-B Natriuret Pep 482 H Total Protein 7.4 Albumin 4.6 Globulin 2.8 Albumin/Globulin Ratio 1.6 Lipase 20 L Procalcitonin 0.07 Assessment & Plan Assessment & Plan narrative: 1. COPD exacerbation, present on admission and active. 2. Acute hypoxic respiratory failure, present on admission and active. 3. Hyperglycemia, present on admission and active. 4. Ground level fall, present on admission and active. 5. Lower back pain, present on admission and active. 6. HLD, present on admission and active. 7. HTN, present on admission and active. 8. Depression, present on admission and active. PLAN: -Solu-Medrol 60 mg IV q.6 hours. -DuoNeb bronchodilators every 4 hours while awake. -p.o. doxycycline b.i.d. 5 day course. -continue chronic medications for blood pressure and hyperlipidemia. -wean oxygen as able. Full code. She was admitted to observation status, anticipate a 1 midnight need of hospital services. Her daughter is her proxy decision maker. Time Spent With Patient Time with patient: 30 to 49 minutes with 50% spent counseling/coordinating care Quality MIPS - Admit I confirm the patient?s Advance Care Plan is present, Code status is documented, Surrogate decision maker is in patient?s record [If Yes, STOP here]: Yes [facility] - Meds 'Current medications' to include all prescriptions, [id number] products, herbals, cannabis/cannabidiol products, and vitamin/mineral/dietary (nutritional) supplements. I have utilized all available resources to obtain, update, or review the patient?s current medications. [If Yes, STOP here]: Yes
[2024-02-16] MEDS: ALBUTEROL/IPRATROPIUM 3 ML AMPUL INH ×2 (13:30→18:13)
[2024-02-16 17:55] LABS: Adenovirus Not Detected (Not Detect); B. parapertussis Not Detected (Not Detecte); Bordetella pertussis Not Detected (Not Detect); Chlamydophila pneumoniae Not Detected (Not Detect); Coronavirus 229E Not Detected (Not Detect); Coronavirus HKU1 Not Detected (Not Detect); Coronavirus NL 63 Not Detected (Not Detect); Coronavirus OC43 Not Detected (Not Detect); Human Metapneumovirus Not Detected (Not Detect); Human Rhinovirus/Enterovirus Not Detected (Not Detect); Influenza A Not Detected (Not Detect); Influenza B Not Detected (Not Detect); Mycoplasma pneumoniae Not Detected (Not Detect); Parainfluenza Virus 1 Not Detected (Not Detect); Parainfluenza Virus 2 Not Detected (Not Detect); Parainfluenza Virus 3 Not Detected (Not Detect); Parainfluenza Virus 4 Not Detected (Not Detect); Respiratory Syncytial Virus Not Detected (Not Detect); SARS- CoV-2 Not Detected (Not Detecte)
[2024-02-16] MEDS: methylPREDNISolone 125 MG/2 ML VIAL 60 MG IV (18:08)
--- NOTE | 2024-02-16 19:02 | PC.NURSE ---
Patient arrived from ED this afternoon. She is A&OX4. She is currently on 4 LNC, noted productive cough, course lung sounds. She denies pain, dizziness. Daughter and son in law at bedside this evening. Patient is aggreeable and cooperative with care tonight. x1 assist to BSC. Bed alarm on, encouraged SCD's, call light in reach, frequent rounding.
[2024-02-16] MEDS: HEPARIN 5,000 UNIT/ML VIAL 5000 UNIT SUBCUT (21:21)
[2024-02-16] MEDS: SENNOSIDES 8.6 MG TABLET 17.2 MG PO (21:22)
[2024-02-16] MEDS: DOXYCYCLINE HYCLATE 100 MG TABLET PO (21:22)
[2024-02-16] MEDS: GABAPENTIN 300 MG CAPSULE PO (21:22)
[2024-02-16] MEDS: cefTRIAXone 1,000 MG in SODIUM CHLORIDE 0.9% 100 ML 200 MG IV (21:23)
[2024-02-16] MEDS: INSULIN LISPRO 100 UNIT/ML 3ML VIAL SUBCUT (21:27)
[2024-02-17] VITALS (8 sets, daily range): BP systolic 125–149; BP diastolic 53–75; PULSE 73–97; RESP 14–22; TEMP 35.9–36.9; O2SAT 92–98
[2024-02-17] MEDS: methylPREDNISolone 125 MG/2 ML VIAL 60 MG IV ×4 (00:11→18:13)
[2024-02-17] MEDS: ALBUTEROL 2.5 MG/3 ML NEB (ADULT) INH (03:30)
[2024-02-17] MEDS: PANTOPRAZOLE DR 20 MG TABLET PO (05:48)
[2024-02-17 06:00] LABS: Add Manual Diff / Slide Review NO; Basophils Absolute Auto 0 /uL (0-100); Basophils Percent Auto 0.1 % (0-2); Eosinophils Absolute Auto 0 /uL (0-450); Hematocrit 36.6 % (36-46); Hemoglobin 12.3 g/dL (12.0-16.0); Lymphocytes Absolute Auto 500 /uL (1100-4500); Lymphocytes Percent Auto 3.5 % (25-40); Mean Corpuscular HGB Conc 33.6 % (30-36); Mean Corpuscular Hemoglobin 31.3 PG (26-34); Mean Corpuscular Volume 93.1 fL (80-100); Monocytes Absolute Auto 600 /uL (0-900); Monocytes Percent Auto 3.7 % (3-14); Neutrophils Absolute Auto 13900 /uL (1500-7000); Neutrophils Percent Auto 92.7 % (50-75); Platelet Count 233 X10^3/uL (150-400); Red Blood Cell Count 3.93 X10^6/uL (4.0-5.2); Red Cell Distribution Width 13.8 % (11.6-14.8)
[2024-02-17 06:11] LABS: BUN Creatinine Ratio 53.3 (6-22); Blood Urea Nitrogen 24 mg/dL (7-17); Calcium 9.5 mg/dL (8.4-10.2); Carbon Dioxide 27 mmol/L (22-32); Chloride 106 mmol/L (98-107); Estimated Glomerular Filt Rate > 60 mL/min (>60); Glucose 167 mg/dL (80-110); HEMOLYSIS < 15 (0-50); Potassium 3.7 mmol/L (3.4-5.1); Sodium 138 mmol/L (137-145)
[2024-02-17 06:25] LABS: Hemoglobin A1C% w Est Avg Glu 5.9 % (4.0-6.0)
[2024-02-17] MEDS: FLUoxetine 20 MG CAPSULE 40 MG PO (08:16)
[2024-02-17] MEDS: GABAPENTIN 300 MG CAPSULE PO ×2 (08:16→21:30)
[2024-02-17] MEDS: ATORVASTATIN 20 MG TABLET 10 MG PO (08:16)
[2024-02-17] MEDS: DOXYCYCLINE HYCLATE 100 MG TABLET PO ×2 (08:17→21:30)
[2024-02-17] MEDS: ASPIRIN EC 81 MG TABLET PO (08:17)
[2024-02-17] MEDS: HEPARIN 5,000 UNIT/ML VIAL 5000 UNIT SUBCUT ×2 (08:17→21:30)
[2024-02-17] MEDS: INSULIN LISPRO 100 UNIT/ML 3ML VIAL SUBCUT ×3 (08:20→16:57)
--- NOTE | 2024-02-17 09:12 | P.PN_ITS ---
Subjective Subjective Interval history: She is still short of breath, has not been on a bed. Exam Vital Signs (past 8 hours): - 02/17/24 04:00 Temperature 97.2 F L Pulse Rate 97 H Respiratory Rate 22 Blood Pressure 135/59 L Pulse Oximetry 98 Oxygen Flow Rate 2 Oxygen Delivery Method Nasal Cannula Oxygen Flow Rate 2 Narrative Exam Narrative: NAD, alert and oriented. Fluent speech. Lungs are with diminished breath sounds globally and prolonged expiratory phase. Normal rate. She does become somewhat breathless when talking. Heart is regular, no murmur gallop or rub. Abdomen is soft, non distended. Extremities are free of edema. Objective Labs 02/17/24 05:15 02/17/24 05:15 Labs: Laboratory Results - last 24 hr 02/16/24 02/16/24 02/16/24 07:00 09:38 16:30 WBC 9.2 RBC 4.25 Hgb 13.3 Hct 39.8 MCV 93.6 MCH 31.3 MCHC 33.4 RDW 13.9 Plt Count 251 Neut % (Auto) 93.3 H D Lymph % (Auto) 4.3 L [place] % (Auto) 2.3 L Eos % (Auto) 0.0 L Baso % (Auto) 0.1 Neut # (Auto) 8600 H Lymph # (Auto) 400 L [place] # (Auto) 200 Eos # (Auto) 0 Baso # (Auto) 0 ABG Sample Site Right radial ABG pH 7.41 ABG pCO2 35.9 ABG pO2 85 ABG HCO3 23 ABG Total CO2 24 ABG O2 Saturation 97 ABG Base Excess -2.0 FiO2 34 Sodium 138 Potassium 4.1 Chloride 106 Carbon Dioxide 22 BUN 20 H Creatinine 0.56 Estimated GFR > 60 BUN/Creatinine Ratio 35.7 H Glucose 260 H D Hemoglobin A1c Calcium 9.6 Magnesium 2.1 Total Bilirubin 0.5 AST 46 H ALT 23 Alkaline Phosphatase 91 Total Creatine Kinase 60 Troponin I < 0.012 NT-Pro-B Natriuret Pep 482 H Total Protein 7.4 Albumin 4.6 Globulin 2.8 Albumin/Globulin Ratio 1.6 Lipase 20 L Procalcitonin 0.07 Chlamy pneumoniae PCR Not detected Adenovirus (PCR) Not detected B.parapertussis DNA PCR Not detected Coronavirus OC43 (PCR) Not detected Coronavirus HKU1 (PCR) Not detected Coronavirus 229E (PCR) Not detected SARS-CoV-2 (PCR) Not detected Coronavirus NL63 (PCR) Not detected Human Metapneumovir PCR Not detected Influenza Type A (PCR) Not detected Influenza Type B (PCR) Not detected M. pneumoniae (PCR) Not detected Parainfluenza 1 (PCR) Not detected Parainfluenza 2 (PCR) Not detected Parainfluenza 3 (PCR) Not detected Parainfluenza 4 (PCR) Not detected RSV (PCR) Not detected Entero/Rhino (PCR) Not detected 02/17/24 05:15 WBC 15.0 H D RBC 3.93 L Hgb 12.3 Hct 36.6 MCV 93.1 MCH 31.3 MCHC 33.6 RDW 13.8 Plt Count 233 Neut % (Auto) 92.7 H Lymph % (Auto) 3.5 L [place] % (Auto) 3.7 Eos % (Auto) 0.0 L Baso % (Auto) 0.1 Neut # (Auto) 11991 H Lymph # (Auto) 500 L [place] # (Auto) 600 Eos # (Auto) 0 Baso # (Auto) 0 ABG Sample Site ABG pH ABG pCO2 ABG pO2 ABG HCO3 ABG Total CO2 ABG O2 Saturation ABG Base Excess FiO2 Sodium 138 Potassium 3.7 Chloride 106 Carbon Dioxide 27 BUN 24 H Creatinine 0.45 L Estimated GFR > 60 BUN/Creatinine Ratio 53.3 H Glucose 167 H Hemoglobin A1c 5.9 Calcium 9.5 Magnesium Total Bilirubin AST ALT Alkaline Phosphatase Total Creatine Kinase Troponin I NT-Pro-B Natriuret Pep Total Protein Albumin Globulin Albumin/Globulin Ratio Lipase Procalcitonin Chlamy pneumoniae PCR Adenovirus (PCR) B.parapertussis DNA PCR Coronavirus OC43 (PCR) Coronavirus HKU1 (PCR) Coronavirus 229E (PCR) SARS-CoV-2 (PCR) Coronavirus NL63 (PCR) Human Metapneumovir PCR Influenza Type A (PCR) Influenza Type B (PCR) M. pneumoniae (PCR) Parainfluenza 1 (PCR) Parainfluenza 2 (PCR) Parainfluenza 3 (PCR) Parainfluenza 4 (PCR) RSV (PCR) Entero/Rhino (PCR) FOR[facility]LY [facility], [facility] Medical History Spondyloarthritis Smoker unmotivated to quit Hyperlipidemia COPD (chronic obstructive pulmonary disease) Depression GERD without esophagitis Surgical History S/P tonsillectomy S/P cholecystectomy S/P appendectomy Social History household members: family Smoking Status: Current every day smoker alcohol intake: current Assessment & Plan Assessment & Plan narrative: 1. COPD exacerbation, present on admission and active. 2. Acute hypoxic respiratory failure, present on admission and active. 3. Hyperglycemia, present on admission and active. 4. Ground level fall, present on admission and active. 5. Lower back pain, present on admission and active. 6. HLD, present on admission and active. 7. HTN, present on admission and active. 8. Depression, present on admission and active. PLAN: -Solu-Medrol 60 mg IV q.6 hours. -DuoNeb bronchodilators every 4 hours while awake. -p.o. doxycycline b.i.d. 5 day course. -continue chronic medications for blood pressure and hyperlipidemia. -wean oxygen as able. She was shown mild improvement, we will need to advance activity today. We also did have a longer discussion on level of care and she notes she is do not intubate and do not resuscitate. Date of discharge is late February 16 or more likely February 17 depending on her ability to ambulate, degree of dyspnea, and ability to wean off from oxygen.
[2024-02-17] MEDS: ALBUTEROL/IPRATROPIUM 3 ML AMPUL INH ×2 (09:29→16:15)
--- NOTE | 2024-02-17 11:44 | DIET.CONS ---
Dietary Consultation Note Admission Date: 02/16/2024 09:27 Assessment: 83 y F admitted after ground level fall. Nutrition screened for low BMI for age. Met with pt at bedside, reports decrease in appetite over last week d/t to URI symptoms. Normal appetite outside of this past week. Overall decrease in weight in past few years and a change in taste she related to aging. She states she eats too many candies/chocolates. Diet recall: B-eggs or oatmeal L-none D-frozen meal Not able to perform NFPE at this time. Visually, pt with mild to moderate muscle loss in temporalis, severe loss in clavicle region, severe loss interosseous, moderate loss buccal and orbital fat pads Ht: 152.4 cm Wt: 40.37 kg BMI: 17.4 UBW: 48.18 kg >1 yr ago Last BM: 02/14/24 (02/16/24 13:25) MNA: 11 Mohamud Score: 21 Diet: 02/17/24 Breakfast Carbohydrate Consistent Diet Diet Modifications: Carbohydrate level: Medium (3 CHO) Reflex DM orders: No Food Texture: Level 7 - Regular Liquid Consistency: Level 0 - Thin Nutrition Percent Meal Consumed 0% 02/17/24 09:41 Percent Meal Consumed 75% 02/16/24 18:00 Labs: RBC 3.93 X10^6/uL (4.0-5.2) L 02/17/24 05:15 Hgb 12.3 g/dL (12.0-16.0) 02/17/24 05:15 Hct 36.6 % (36-46) 02/17/24 05:15 Creatinine 0.45 mg/dL (0.52-1.04) L 02/17/24 05:15 Hemoglobin A1c 5.9 % (4.0-6.0) 02/17/24 05:15 NT-Pro-B Natriuret Pep 482 pg/mL (<450) H 02/16/24 07:00 Nutrition Diagnosis: Inadequate oral intake r/t decreased ability to consume adequate intake aeb BMI 17.7 (underweight) and <75% of estimated energy intake being met per diet recall Interventions: 1. Modified energy-protein intake: discussed protein before sweets, protein sources, encouraged intake mid-day 2. Protein supplement BID EER: [id number] (30-35 kcals/kg) 50-60 g protein (1.25-1.5 g/kg) Monitoring/Evaluations: po intakes Electronically Signed by: Mónica Faulkner 02/17/24 11:44 Clinical Dietitian [address] [id number]
--- NOTE | 2024-02-17 13:57 | CM.DANOTE ---
Initial DCP Assessment Visit Note Reviewed EMR and team rounds for pt's medical status and initial anticipated d/c needs. Went to meet with pt at bedside, however she was found to be sleeping. Pt resides alone in her own apartment below her granddaughter/family, her dtr is her proxy. Called her dtr, Sharri, and discussed d/c preferences, concerns, and support needs. Dtr will plan to transport pt back home once she's medically cleared for home d/c. Payor: [facility] PCP: Cornelia Higginbotham Pt is a 83 year-old F who presented to the ED via EMS last evening following a GLF. Upon arriving to the ED, pt was found to be hypoxic, satting into the 80's. Home O2 had just been delivered the day before, however she was not wearing it when EMS arrived. Per dtr, pt is very independent, no longer drives, but dtr assists with taking her shopping and to her appointments. Pt is wary about strangers in her home, and will most likely not be interested in working with therapies, per dtr. MANAGER STORY will continue to follow and plan to meet with pt tomorrow am to establish a rapport and assess any resources that she may be interested in. Discharge Planning/Care Management CM Discharge Assessment Start: 02/17/24 12:56 Freq: Status: Active Protocol: Document 02/17/24 12:57 DPL (Rec: 02/17/24 13:57 DPL [id number]) Discharge Planning Assessment Assigned Electronic Health Records Specialist PRETTY Rodriguez Advance Directives? Yes Advance Directives on File No History Provided By Patient,Medical Record Has Patient been admitted in last 30 No days? Prior Living Arrangements House Household Members none Type of transporation used prior to Relies on Others admit Independent with ADL's Yes Is patient alert and oriented? Yes Needs Assistance With Home Chores / Shopping Caregiver for Another No Community Services used prior to Oxygen Therapy admission: DME Already Rented / Owned Oxygen Comment Pending pt's improvement and PT/OT assessment/ recommendations. Barriers to Discharge No Comment Patient would like to return home w/family support. Discharge Plan Home Community Services Oxygen Therapy Transportation Arrangement Family Referrals Initiated None needed Additional Comment Patient unsure about HH; CM team could reassess again upon DC if recommended by discharging provider Medicare Choice List Provided No Has Agency SNF been contacted No Whiteboard Updated in Patient Room with Yes name and ext. # of Electronic Health Records Specialist Review Status In Process Please Provide Date Initial DC 02/17/24 Assessment Was Performed
--- NOTE | 2024-02-17 14:30 | PT.IIE ---
Current Diagnoses Chronic obstructive pulmonary disease with (acute) exacerbation (02/16/24) Surgical History (Last Reviewed 02/16/24 @ 14:09 by Simone Singletary MD) S/P appendectomy S/P cholecystectomy S/P tonsillectomy Medical History (Last Reviewed 02/16/24 @ 14:09 by Simone Singletary MD) COPD (chronic obstructive pulmonary disease) Depression GERD without esophagitis Hyperlipidemia Smoker unmotivated to quit Spondyloarthritis Physical Therapy Inpatient Evaluation/Re-Eval M1 PT/OT-IP Prior Functional Status Start: 02/17/24 17:04 Freq: NEEDED Status: Active Protocol: Document 02/17/24 14:30 AB (Rec: 02/17/24 17:17 AB [id number]) Medical Review Prior Functional Status Medical History Reviewed Yes Communication able to make needs known; STEBBINS Mobility and Gait pt stated that she was modified independent with all mobilities and ambulation without AD Social History Household Members family Living Arrangements House Number of Floors (Floors) Two Floors Number of Stairs To Enter/Railing? pt stays on main level of the house and son and daughter in law lives upstairs has 3 steps wide bilateral rails to enter the house but can only hold on to one rail at a time Home Environment High Toilet,Tub/Shower Home Equipment Four Wheel Walker,Hand Held Shower M2 PT-IP Current Condition Start: 02/17/24 17:04 Freq: NEEDED Status: Active Protocol: Document 02/17/24 14:30 AB (Rec: 02/17/24 17:17 AB [id number]) Physical Therapy Current Condition Current Condition Evaluation Date 02/17/24 Treatment Diagnosis COPD; difficulty in walking Onset Date 02/16/24 M3 PT-IP Subjective Start: 02/17/24 17:04 Freq: NEEDED Status: Active Protocol: Document 02/17/24 14:30 AB (Rec: 02/17/24 17:17 AB [id number]) Subjective Physical Therapy Visit Type Type Initial Evaluation Visit Start Time 14:30 Visit Stop Time 15:15 Number of FIELD BROOMER Visits 0 Physical Therapy Visit Comments Patient Comments agreeable to do PT M4 PT-IP Mobility and Gait Start: 02/17/24 17:04 Freq: NEEDED Status: Active Protocol: Document 02/17/24 14:30 AB (Rec: 02/17/24 17:17 AB [id number]) PT-Bed Mobility Assessment Supine to Sit Supine to Sit Standby Assistance PT-Transfer Assessment Sit to and From Stand Sit to and from Stand Contact Guard Assistance,1 Person Assistance,Use of Upper Extremities Equipment Transfer Assistive Device Gait Belt,Front Wheeled Walker Orthotic/Prosthetic Devices or Brace: No Transfers Transfer Destination Chair Transfer Technique ambulated Transfer Ability Level of Assist Contact Guard Assistance Comments Mobility Comments pt supine in bed and agreeable to do PT. obtained PLOF and home set up from pt. O2 sat with 1 1/2 L/min O2: 94%. presents with SOB. pt completed supine to sit SBA . able to sit on EOB SBA. O2 sat: 92%. cued for PLB and O2 sat increased to 94%. completed sit to stand CGA and ambulated in room using FWW ~ 30 ft CGA. pt sat on the chair. (+) SOB. O2 sat : 88- 89%. cued for PLB and O2 sat increased to 94%. Assessed ambulation without AD and pt completed ~ 20 ft CGA. pt stated that her legs feels like jello. pt agreed to stay up on the chair. positioned pt on the chair. call light and table placed within reach. Gait Assessment Gait Gait Assistance Required: Contact Guard Assist Distance (Feet) 30 Able to Maintain Weight Bearing Status Yes During Gait Assistive Devices Assistive Device None,Gait Belt,Front Wheeled Walker Orthotic/Prosthetic Devices or Brace: No Gait Deviations General Gait Pattern Decreased Stride Length, Decreased Feet Clearance Factors Limiting Gait Function Factors Limiting Gait Function Decreased Activity Tolerance, Decreased Strength,Limited Range of Motion,Poor Balance, Poor Safety Awareness, Respiratory Distress PT-Balance Assessment Sitting Balance and Reactions Dynamic Sitting Balance Ability Good Standing Balance and Reactions Static Standing Balance Ability Fair Dynamic Standing Balance Ability Fair Device Used without AD M5 PT-IP Objective Assessments Start: 02/17/24 17:04 Freq: NEEDED Status: Active Protocol: Document 02/17/24 14:30 AB (Rec: 02/17/24 17:17 AB [id number]) Orientation Orientation/Cognition Level of Alertness Alert Orientation Name,Place,Situation Language Function Ability Hard of Hearing Safety Awareness Decreased Safety Awareness Memory Description No Deficits Noted Gross Range of Motion Lower Extremity ROM Assessment Within Functional Limits Strength Lower Extremity Strength Assessment Within Functional Limits Muscle Tone Muscle Tone WNL Yes M6 PT-IP Treatment Start: 02/17/24 17:04 Freq: NEEDED Status: Active Protocol: Document 02/17/24 14:30 AB (Rec: 02/17/24 17:17 AB [id number]) Physical Therapy Treatment Education Education Provided Safety M7 PT-IP Assessment and Plan Start: 02/17/24 17:04 Freq: NEEDED Status: Active Protocol: Document 02/17/24 14:30 AB (Rec: 02/17/24 17:17 AB [id number]) PT Summary Assessment and Plan Potential Rehabilitation Potential Fair Status of Condition at Evaluation Evolving Summary Impairments Pain,ROM,Strength,Balance, Coordination,Sensation,Tone, Cognition,Bed Mobility, Transfers,Gait,Activity Tolerance Assessment Summary pt is an 83 y/o F who presented to the ED with SOB and s/p fall. pt admitted for COPD exacerbation. pt requiring O2 supplement and O2 sat decreased to ~ 88% after ambulation. pt requiring CGA with mobility using FWW. pt plans to go home and stated that her daughter -in-law may be able to assist her if needed. pt will benefit from HHPT. Goals Bed Mobility Goal Independent Transfer Goal Independent,Front Wheeled Walker Gait Goal Independent,Front Wheel Walker Gait Distance 150 Other Goals improve transfers/ambulation without AD/LRAD 200 ft mod I up/down 3 steps 1 rail SBA Days to Meet Goals 10 Frequency of Treatment Frequency Of Treatment Once a Day Treatment Plan Physical Therapy Treatment Plan Bed Mobility Training,Transfer Training,Gait Training, Therapeutic Exercise,Balance Retraining,Discharge Planning, Hot or Cold Pack,Neuromuscular Re-ed,Coordination Retraining Precautions Other Precautions falls; O2 sat Recommendations To Nursing Amount of Assist Needed 1 Person Assist Discharge Recommendations PT Discharge Recommendations Home with Assistance,Home Health Equipment Needed for Home Before FWW if not safe without AD Discharge Transportation Needs at Discharge Private Vehicle
[2024-02-17] MEDS: cefTRIAXone 1,000 MG in SODIUM CHLORIDE 0.9% 100 ML 200 MG IV (18:13)
[2024-02-17] MEDS: SENNOSIDES 8.6 MG TABLET 17.2 MG PO (21:29)
[2024-02-17] MEDS: MELATONIN 3 MG TABLET 9 MG PO (21:38)
[2024-02-18 00:55] VITALS: BP 154/109; PULSE 79; RESP 20; TEMP 36.6; O2SAT 94
[2024-02-18] MEDS: methylPREDNISolone 125 MG/2 ML VIAL 60 MG IV ×3 (01:42→11:46)
[2024-02-18 04:15] VITALS: BP 159/76; PULSE 67; RESP 20; TEMP 37; O2SAT 96
[2024-02-18 04:45] LABS: Add Manual Diff / Slide Review NO; Basophils Absolute Auto 0 /uL (0-100); Eosinophils Absolute Auto 0 /uL (0-450); Hematocrit 37.3 % (36-46); Hemoglobin 12.4 g/dL (12.0-16.0); Lymphocytes Absolute Auto 500 /uL (1100-4500); Lymphocytes Percent Auto 3.4 % (25-40); Mean Corpuscular HGB Conc 33.4 % (30-36); Mean Corpuscular Hemoglobin 31.2 PG (26-34); Mean Corpuscular Volume 93.6 fL (80-100); Monocytes Absolute Auto 500 /uL (0-900); Neutrophils Absolute Auto 14800 /uL (1500-7000); Neutrophils Percent Auto 93.6 % (50-75); Platelet Count 246 X10^3/uL (150-400); Red Blood Cell Count 3.99 X10^6/uL (4.0-5.2); Red Cell Distribution Width 13.8 % (11.6-14.8); White Blood Cell Count 15.8 X10^3/uL (4.5-11.0)
[2024-02-18 04:46] LABS: BUN Creatinine Ratio 48.4 (6-22); Blood Urea Nitrogen 30 mg/dL (7-17); Calcium 9.4 mg/dL (8.4-10.2); Carbon Dioxide 29 mmol/L (22-32); Chloride 105 mmol/L (98-107); Estimated Glomerular Filt Rate > 60 mL/min (>60); Glucose 147 mg/dL (80-110); HEMOLYSIS < 15 (0-50); Sodium 139 mmol/L (137-145)
[2024-02-18] MEDS: PANTOPRAZOLE DR 20 MG TABLET PO (06:08)
[2024-02-18] MEDS: ALBUTEROL/IPRATROPIUM 3 ML AMPUL INH ×3 (06:15→11:49)
[2024-02-18 06:17] VITALS: O2SAT 96
[2024-02-18 08:00] VITALS: BP 131/73; PULSE 73; RESP 16; TEMP 36.6; O2SAT 92
[2024-02-18] MEDS: ASPIRIN EC 81 MG TABLET PO (08:18)
[2024-02-18] MEDS: FLUoxetine 20 MG CAPSULE 40 MG PO (08:19)
[2024-02-18] MEDS: GABAPENTIN 300 MG CAPSULE PO (08:19)
[2024-02-18] MEDS: NICOTINE 21 MG PATCH TOP (08:19)
[2024-02-18] MEDS: HEPARIN 5,000 UNIT/ML VIAL 5000 UNIT SUBCUT (08:19)
[2024-02-18] MEDS: ATORVASTATIN 20 MG TABLET 10 MG PO (08:19)
[2024-02-18] MEDS: INSULIN LISPRO 100 UNIT/ML 3ML VIAL SUBCUT ×2 (08:21→11:45)
[2024-02-18] MEDS: DOXYCYCLINE HYCLATE 100 MG TABLET PO (08:23)
[2024-02-18 11:40] VITALS: BP 159/78; PULSE 84; RESP 24; TEMP 37.2; O2SAT 91
[2024-02-18 11:49] VITALS: PULSE 84; RESP 24; O2SAT 93
--- NOTE | 2024-02-18 12:24 | P.DS_ITS ---
History of Present Illness History of Present Illness Chief complaint: GLF Narrative: The patient is a pleasant 83-year-old female brought in after ground level fall. She was seen in the ER last night for COPD exacerbation and acute hypoxia. At that time, she declined admission and was sent home with oxygen. The patient apparently was not wearing her oxygen last night where she lives alone in an apartment. She then apparently had a fall at home and ultimately was able to call for help. She was brought to the emergency department by ambulance. She notes that when she woke up this morning she was lightheaded and felt odd. She did hit her head but denies any loss of consciousness. Upon her arrival she would minor lower back pain which has since improved. No extremity trauma or pain. EMS did note her SaO2 to be in the low 80s on room air. The patient improved with corticosteroids and nebulizers in the emergency department. She does have a long history of smoking but has recently quit. She does not use home oxygen. She has been ill for about 1 week with URI symptoms including some rhinorrhea, and a cough which is intermittently productive of sputum. She denies any chest pain, leg edema or orthopnea. No nausea, vomiting, or diarrhea. Discharge Providers Provider Date of admission: 02/16/24 09:27 Discharge Date: 02/18/24 Primary care physician: Cornelia Higginbotham DO Consults: 02/16/24 11:18 Consult to Cardio/Pulmonary Rehabilitation Routine Comment: Physician Instructions: Evaluate and treat 02/17/24 09:28 Consult to Physical Therapy Evaluate & Treat Comment: Physician Instructions: Evaluate and Treat Discharge provider: Simone Singletary MD Summary Hospital Course Discharge Diagnosis: 1. COPD exacerbation, present on admission and improved. 2. Acute hypoxic respiratory failure, present on admission and active. Home O2 set up. 3. Hyperglycemia, present on admission and active. 4. Ground level fall, present on admission and active. 5. Lower back pain, present on admission and active. 6. HLD, present on admission and active. 7. HTN, present on admission and active. 8. Depression, present on admission and active. Hospital Course: The patient was admitted with COPD exacerbation. She expressed a do not resuscitate [id number] wish in the beginning of her encounter. She was treated with bronchodilators, oral antibiotics, and corticosteroids IV and improved. She was able to ambulate on the day of discharge but was desaturating. She was evaluated for and qualified for home oxygen. She was felt to be stable to discharge with 3 additional days of oral antibiotics and we will continue her prednisone at 20 mg a day that she has at home until it is finished. Status at Discharge Cognitive/behavioral status at discharge: oriented Functional status at discharge: independent ambulation Overall status at discharge: patient is progressing back to baseline Time Spent with Patient Time spent: Greater than 30 minutes Exam Vital Signs (past 8 hours): - 02/18/24 06:17 02/18/24 08:00 02/18/24 11:40 Temperature 97.8 F 99.0 F Pulse Rate 73 84 Respiratory Rate 16 24 Blood Pressure 131/73 159/78 H Pulse Oximetry 96 92 91 Oxygen Delivery Method Nasal Cannula Oxygen Flow Rate 2 2 0 Oxygen Delivery Method Nasal Cannula Oxygen Flow Rate 0 Narrative Exam Narrative: NAD, alert and oriented. Fluent speech. Lungs are with diminished breath sounds and some prolonged expiration but less wheezing. She has a normal rate and effort. Heart is regular, no murmur gallop or rub. Abdomen is soft, non distended. Extremities are free of edema. Objective ECG Impression: Sinus rhythm Ventricular rate is 77 Occasional PVC Normal QRS No ST T wave changes Imaging Multiple studies:: Radiologist's impression: CT Brain: No acute intracranial pathology. CT Cervical Spine: 1. No acute cervical fracture or dislocation noted. 2. Severe cervical spondylosis. 3. Severe emphysematous change. 4. Diffuse osteopenia. Lumbar Xray: 1. No acute compression fracture noted. 2. Diffuse degenerative change. CXR: Bibasilar hazy opacity. Favor atelectasis or scarring. Emphysematous change. Labs 02/18/24 03:55 02/18/24 03:55 Labs: Laboratory Results - last 24 hr 02/18/24 03:55 WBC 15.8 H RBC 3.99 L Hgb 12.4 Hct 37.3 MCV 93.6 MCH 31.2 MCHC 33.4 RDW 13.8 Plt Count 246 Neut % (Auto) 93.6 H Lymph % (Auto) 3.4 L [place] % (Auto) 3.0 Eos % (Auto) 0.0 L Baso % (Auto) 0.0 Neut # (Auto) 65004 H Lymph # (Auto) 500 L [place] # (Auto) 500 Eos # (Auto) 0 Baso # (Auto) 0 Sodium 139 Potassium 4.0 Chloride 105 Carbon Dioxide 29 BUN 30 H Creatinine 0.62 Estimated GFR > 60 BUN/Creatinine Ratio 48.4 H Glucose 147 H Calcium 9.4 PFSH Medical History Spondyloarthritis Smoker unmotivated to quit Hyperlipidemia COPD (chronic obstructive pulmonary disease) Depression GERD without esophagitis Surgical History S/P tonsillectomy S/P cholecystectomy S/P appendectomy Social History household members: family Smoking Status: Current every day smoker alcohol intake: current Discharge Assessment & Plan Assessment and Plan Assessment: 1. COPD exacerbation, present on admission and improved. 2. Acute hypoxic respiratory failure, present on admission and active. Home O2 set up. Plan of Treatment: Discharge home with home oxygen, doxycycline b.i.d. for 3 more days, continue bronchodilators, and prednisone 20 mg a day for 7 more days until her current supply is finished. Discharge Plan Discharge Plan Patient Disposition: Home Provider Discharge Comment: Stable for discharge home on oxygen. Home oxygen was obtained for discharge. Discharge orders & Medications Prescriptions: New doxycycline hyclate 100 mg Tablet 100 mg PO BID Qty: 6 0RF Continued calcium polycarbophil [FiberCon] 625 MG tablet 2 tab PO BID Qty: 0 (DME) Disabled Parking Permit See Rx Instructions .ROUTE .MEDSUPPLY Qty: 1 0RF Rx Instructions: Valid for 5 years omeprazole 20 mg capsule,delayed release(DR/EC) 20 mg PO DAILY Qty: 30 5RF albuterol sulfate [Ventolin HFA] 90 mcg/actuation HFA aerosol inhaler 2 puff inhalation Q2HP PRN (Reason: breathing) Qty: 8.5 0RF budesonide-formoterol 80-4.5 mcg/actuation HFA aerosol inhaler 2 puff inhalation BID Qty: 10.2 0RF Spiriva with HandiHaler 18 mcg capsule, w/inhalation device 1 cap inhalation QDAY Qty: 90 3RF rosuvastatin 5 mg tablet 5 mg PO DAILY Qty: 90 0RF fluoxetine 40 mg capsule 40 mg PO DAILY Qty: 90 1RF aspirin [Adult Aspirin Regimen] 81 mg tablet,delayed release (DR/EC) 81 mg PO DAILY Qty: 30 5RF gabapentin 300 mg capsule 300 mg PO BID Qty: 180 3RF prednisone 20 mg tablet 40 mg PO DAILY Qty: 10 0RF Medication counseling provided by Pharmacist: No Follow up/Referrals: Cornelia Higginbotham DO [Primary Care Provider] - Discharge Health Status Multidrug resistant organism: No MDRO Diet/Activity/Treatments Diet: Regular Oxygen: Home O2. Visit Report/Discharge Packet Instructions: DI for Chronic Obstructive Pulmonary Disease, How to Prevent Falls Stand Alone Forms: Patient Portal/API Discharge Data Primary Care Provider: Cornelia Higginbotham Attending Provider: Simone Singletary Admit Date/Time: 02/16/24 09:27
--- NOTE | 2024-02-18 15:42 | CM.DPC ---
DCP Continued Reviewed EMR and team rounds for pt?s medical status. Per rounds, pt is set to discharge today since weaned down on O2. Pt had discharge orders in today. Prior to dc, RN discussed with this DCP that pt was inquiring about home health. DCP entered room and introduced self. Spoke with pt at length about HH services and pt explained some family dynamics which are attributing to her stress levels; states having HH would be helpful in easing the anxiety her daughter has about her living alone. DCP reviewed Medicare sheet with pt and pt stated she had no particular preference other than working with an agency who is based in [place]. DCP sent referral to [facility]. Notified hospitalist, Dr. Singletary, of plan for HH who indicated understanding. Plan: Pt to dc with daughter, referral sent. CM Team will continue to follow for coordination of discharge plans. GISELL Adan
== END 2024-02-18 16:08 | disposition home or self-care (01) ==
LOC: ED 09:19 → AC 09:31
PROVIDERS: Admitting Provider Hospitalist; Emergency Provider Emergency Medicine; Family Provider Nurse Practitioner Family; PCP Family Medicine; Referring Provider Emergency Medicine; Visit Provider Hospitalist
DX: J96.01 Acute respiratory failure with hypoxia (principal); J44.1 Chronic obstructive pulmonary disease with (acute) exacerbation; N39.0 Urinary tract infection, site not specified; W18.30XA Fall on same level, unspecified, initial encounter; M54.50 Low back pain, unspecified; F17.210 Nicotine dependence, cigarettes, uncomplicated; Z11.52 Encounter for screening for COVID-19
CPT/HCPCS: 0241U; 36415; 36600; 70450; 71045; 72100; 72125; 80048; 80053; 81003; 81015; 82550; 82805; 82962; 83036; 83605; 83690; 83735; 83880; 84145; 84484; 85025; 85610; 87077; 87086; 87186; 87633; 93005; 93010; 94618; 94640; 94760; 94762; 96365; 96366; 96372; 96375; 96376; 97116; 97162; 97530; 99284; 99285; G0378; J0696; J1644; J1815; J2919; J7613

== ENCOUNTER 2024-03-23 20:19 | Observation (INO) | payer MEDICARE, SELFPAY ==
[2024-02-16 13:25] VITALS: BMI 17.4
[2024-03-23] VITALS (10 sets, daily range): BP systolic 121–145; BP diastolic 61–67; PULSE 88–98; RESP 20–27; TEMP 37.6; O2SAT 91–94; BMI 17.4
--- NOTE | 2024-03-23 20:37 | DI.RAD.S_ITS ---
PROCEDURE: XR CHEST 1V INDICATIONS: Shortness of breath TECHNIQUE: One view of the chest was acquired. COMPARISON: [facility], CR, XR CHEST 1V, 07/27/2022, 19:54. [facility], CR, XR CHEST 1V, 02/15/2024, 20:23. FINDINGS: Surgical changes and devices: None. Lungs and pleura: Findings compatible with chronic obstructive pulmonary physiology. Diffuse interstitial prominence of the bilateral lower lung zones with new patchy opacity of the right lung base. Mediastinum: Mediastinal contours appear normal. Heart size is normal. Bones and chest wall: No suspicious bony lesions. Overlying soft tissues appear unremarkable. IMPRESSION: Small patchy opacity of the right lung base possibly representing atelectasis versus early developing airspace disease. Changes compatible with chronic obstructive pulmonary physiology. Recommend follow up chest radiograph 4-6 weeks after treatment to document resolution of findings and/or return to baseline examination. Dictated by: Mook Billings M.D. on 03/23/2024 at 21:34 Approved by: Mook Billings M.D. on 03/23/2024 at 21:35
--- NOTE | 2024-03-23 20:51 | ED_ITS ---
HPI - SOB/Dyspnea General Chief Complaint: Shortness of Breath/Dyspnea Stated Complaint: COPD, Dyspnea Time Seen by Provider: 03/23/24 20:22 Source: EMS Mode of arrival: EMS History of Present Illness HPI Narrative: 83-year-old female with history of COPD on 3 L home O2 presents for increasing shortness of breath and generalized weakness. Patient was attempting to make her bed when she felt significant shortness of breath. Pulse ox taken at home showed 84% on patient's normal nasal cannula. They administered a breathing treatment to the patient but her symptoms did not improve and so they called 911 for evaluation Related Data Home Medications Medication Instructions Recorded Confirmed calcium polycarbophil 625 mg 2 tab PO BID ##0 10/27/16 03/24/24 tablet (FiberCon) Previous Rx's Medication Instructions Recorded aspirin 81 mg tablet,delayed 81 mg PO DAILY #30 tabs 04/01/22 release (Adult Aspirin Regimen) Disabled Parking Permit #1 ea 08/14/23 omeprazole 20 mg capsule,delayed 20 mg PO DAILY #30 caps 10/13/23 release budesonide-formoterol HFA 80 2 puff inhalation BID #10.2 grams 10/15/23 mcg-4.5 mcg/actuation aerosol inhaler rosuvastatin 5 mg tablet 5 mg PO DAILY #90 tabs 01/15/24 fluoxetine 40 mg capsule 40 mg PO DAILY #90 caps 01/22/24 gabapentin 300 mg capsule 300 mg PO BID #180 caps 01/27/24 prednisone 20 mg tablet 40 mg (2 x 20 mg) PO DAILY #10 tabs 02/15/24 albuterol sulfate 90 mcg/actuation 2 puff inhalation Q2HP PRN 03/04/24 aerosol inhaler (Ventolin HFA) breathing #8.5 grams tiotropium bromide 18 mcg capsule 1 cap inhalation QDAY #90 ea 03/04/24 with inhalation device (Spiriva with HandiHaler) Allergies Allergy/AdvReac Type Severity Reaction Status Date / Time No Known Drug Allergies Allergy Verified 01/27/24 11:26 Patient History Medical History Spondyloarthritis Smoker unmotivated to quit Hyperlipidemia COPD (chronic obstructive pulmonary disease) Depression GERD without esophagitis Surgical History S/P tonsillectomy S/P cholecystectomy S/P appendectomy Social History household members: family Smoking Status: Former smoker alcohol intake: current Smoking Status: Former smoker tobacco type: cigarettes alcohol intake frequency: holidays/special occasions only Substance Use Type: does not use Exam Initial Vital Signs Initial Vital Signs: Vital Signs Temperature 99.6 F 03/23/24 20:21 Pulse Rate 94 H 03/23/24 20:21 Respiratory Rate 22 03/23/24 20:21 Blood Pressure 144/67 H 03/23/24 20:21 Pulse Oximetry 92 03/23/24 20:21 Oxygen Delivery Method Room Air 03/23/24 20:21 Const: Awake, alert, frail, appears chronically unwell Cardiac: regular rate, regular rhythm RESP: On supplemental oxygen, extremely restricted air movement all lung nunez, expiratory wheezes, productive cough Skin: Warm, Dry, intact, no rashes Neuro: AO x3, CN II-XII grossly intact, moves all extremities Course Orders Ordered: ED Orders 03/23/24 20:33 Complete Blood Count AUTO DIFF Stat Comprehensive Metabolic Panel Stat Lactate (Lactic Acid) Stat NT-proBNP (BNP-Adult 18+) Stat Prothrombin Time INR Stat Troponin I Stat 03/23/24 20:37 XR chest 1V Stat EKG-12 Lead Stat Measure peak expiratory flow ONCE RT Consult Eval and Treat NOW 03/23/24 20:56 Respiratory Panel (Film Array) Stat 03/23/24 22:10 Blood Culture Stat 03/23/24 23:22 UA dip [Urinalysis Screen (Dip Only)] Stat Acetaminophen (Acetaminophen 325 Mg Tablet) 650 mg PO Q6H PRN PRN Reason: Fever/Mild Pain (1-3) Last Admin: 03/24/24 02:51 Dose: 650 mg Documented By: MP Albuterol (Albuterol 2.5 Mg/3 Ml Neb (Adult)) 2.5 mg INH [id number] PRN PRN Reason: Shortness Of Breath Atorvastatin Calcium (Atorvastatin 20 Mg Tablet) 10 mg PO DAILY SHAI Enoxaparin Sodium (Enoxaparin 30 Mg/0.3 Ml Syringe) 30 mg SUBCUT DAILY SHAI Fluoxetine HCl (Fluoxetine 20 Mg Capsule) 40 mg PO DAILY SHAI Gabapentin (Gabapentin 300 Mg Capsule) 100 mg PO TID SHAI Guaifenesin (Guaifenesin Er 600 Mg Tab) 600 mg PO BID [facility] Ceftriaxone Sodium 1,000 mg/ (Sodium Chloride) 100 mls @ 200 mls/hr IV Q24H SHAI Azithromycin 500 mg/ Dextrose 250 mls @ 250 mls/hr IV Q24H [facility] Sodium Chloride (Normal Saline 0.9%) 250 mls @ 21 mls/hr IV Q24H PRN PRN Reason: Flush Methylprednisolone (Methylprednisolone 125 Mg/2 Ml Vial) 60 mg IV Q12H [facility] Naloxone HCl (Naloxone 0.4 Mg/Ml Vial) 0.2 mg IV Q2MIN PRN PRN Reason: Opiate Reversal Ondansetron HCl (Ondansetron 4 Mg Odt) 4 mg PO Q8HR PRN PRN Reason: Nausea And Vomiting Pantoprazole Sodium (Pantoprazole Dr 20 Mg Tablet) 20 mg PO 0600 [facility] Sodium Chloride (Sodium Chloride 0.9% Flush) 10 ml IV PRN PRN PRN Reason: Flush Sodium Chloride (Sodium Chloride 0.9% Flush) 10 ml IV BID [facility] Discontinued Medications Albuterol/Ipratropium (Albuterol/Ipratropium 3 Ml Ampul) 9 ml INH NOW ONE Stop: 03/23/24 20:51 Last Admin: 03/23/24 20:59 Dose: 9 ml Documented By: LYUDMILA Gabapentin (Gabapentin 300 Mg Capsule) 300 mg PO BID [facility] Ceftriaxone Sodium 1,000 mg/ (Sodium Chloride) 100 mls @ 200 mls/hr IV NOW ONE Stop: 03/23/24 21:54 Last Infusion: 03/23/24 22:57 Dose: Infused Documented By: Admin: 03/23/24 22:12 Dose: 200 mls/hr Documented By: ROSA Azithromycin 500 mg/ Dextrose 250 mls @ 250 mls/hr IV NOW ONE Stop: 03/23/24 21:54 Last Infusion: 03/24/24 00:18 Dose: Infused Documented By: Admin: 03/23/24 22:57 Dose: 250 mls/hr Documented By: ROSA Methylprednisolone (Methylprednisolone 125 Mg/2 Ml Vial) 125 mg IV NOW ONE Stop: 03/23/24 20:51 Last Admin: 03/23/24 20:59 Dose: 125 mg Documented By: ROSA Vital Signs Vital signs: Vital Signs - 8 hr 03/23/24 20:21 03/23/24 20:41 03/23/24 20:51 Temperature 99.6 F Pulse Rate 94 H 93 H 92 H Respiratory Rate 22 26 H Blood Pressure 144/67 H Pulse Oximetry 92 92 93 Oxygen Delivery Method Room Air Oxygen Flow Rate Fraction of Inspired Oxygen 03/23/24 20:51 03/23/24 20:59 03/23/24 21:00 Temperature Pulse Rate 88 Respiratory Rate 22 Blood Pressure 138/63 133/63 Pulse Oximetry 93 Oxygen Delivery Method Nasal Cannula Oxygen Flow Rate 3 Fraction of Inspired Oxygen 32 03/23/24 21:00 03/23/24 21:30 03/23/24 21:30 Temperature Pulse Rate 90 97 H Respiratory Rate 27 H 26 H Blood Pressure 132/61 Pulse Oximetry 94 91 Oxygen Delivery Method Oxygen Flow Rate Fraction of Inspired Oxygen 03/23/24 22:00 03/23/24 22:00 03/23/24 22:30 Temperature Pulse Rate 98 H Respiratory Rate 23 Blood Pressure 143/61 H 145/63 H Pulse Oximetry 94 Oxygen Delivery Method Nasal Cannula Oxygen Flow Rate 3 Fraction of Inspired Oxygen 03/23/24 22:30 03/23/24 23:00 03/23/24 23:00 Temperature Pulse Rate 96 H 95 H Respiratory Rate 24 20 Blood Pressure 143/66 H Pulse Oximetry 94 94 Oxygen Delivery Method Nasal Cannula Oxygen Flow Rate 3 Fraction of Inspired Oxygen 03/23/24 23:30 03/24/24 00:00 Temperature Pulse Rate Respiratory Rate Blood Pressure 121/61 141/64 H Pulse Oximetry Oxygen Delivery Method Oxygen Flow Rate Fraction of Inspired Oxygen MDM - SOB/Dyspnea Differential Diagnosis Differential diagnosis: Likely acute exacerbation of chronic obstructive airways disease, congestive heart failure and community acquired pneumonia Lab Data 03/23/24 20:33 03/23/24 20:33 Labs: Lab Results 03/23/24 03/23/24 03/23/24 Range/Units 20:33 20:56 23:22 WBC 26.3 H (4.5-11.0) X10^3/uL RBC 4.20 (4.0-5.2) X10^6/uL Hgb 13.0 (12.0-16.0) g/dL Hct 39.3 (36-46) % MCV 93.6 (80-100) fL MCH 30.9 (26-34) PG MCHC 33.1 (30-36) % RDW 14.8 (11.6-14.8) % Plt Count 183 (150-400) X10^3/uL Neut % (Auto) Not Reportable Lymph % (Auto) Not Reportable [place] % (Auto) Not Reportable Eos % (Auto) Not Reportable Baso % (Auto) Not Reportable Lymph # (Auto) Not Reportable [place] # (Auto) Not Reportable Baso # (Auto) Not Reportable Total Counted 100 Seg Neutrophils % 84.0 H (38-70) % Band Neutrophils % 7.0 (3-7) % Lymphocytes % (Manual) 4.0 L (25-45) % Monocytes % (Manual) 4.0 (2-11) % Eosinophils % (Manual) 1.0 L (2-4) % Neutrophils # (Manual) 67255 H (2633-3771) /uL RBC Morphology Normal morphology PT 12.1 (9.4-12.5) SECONDS INR 1.1 (0.9-1.3) Sodium 133 L (137-145) mmol/L Potassium 4.1 (3.4-5.1) mmol/L Chloride 102 (98-107) mmol/L Carbon Dioxide 24 (22-32) mmol/L BUN 25 H (7-17) mg/dL Creatinine 0.67 (0.52-1.04) mg/dL Estimated GFR > 60 (>60) mL/min BUN/Creatinine Ratio 37.3 H (6-22) Glucose 159 H (80-110) mg/dL Lactate 1.7 (0.7-2.1) mmol/L Calcium 8.8 (8.4-10.2) mg/dL Total Bilirubin 1.1 (0.2-1.3) mg/dL AST 49 H (14-36) IU/L ALT 24 (<35) IU/L Alkaline Phosphatase 87 (38-126) U/L Troponin I < 0.012 (0.01-0.034) ng/mL NT-Pro-B Natriuret Pep 235 (<450) pg/mL Total Protein 6.9 (6.3-8.2) g/dL Albumin 4.3 (3.5-5.0) g/dL Globulin 2.6 (1.7-4.1) g/dL Albumin/Globulin Ratio 1.7 (1.0-2.8) Urine Color Yellow Urine Appearance Clear Urine pH 7.0 (4.5-8.0) Ur Specific [place] <=1.005 (1.000-1.035) Urine Protein Negative (Negative) Urine Glucose (UA) Negative (Negative) g/dL Urine Ketones Negative (NEGATIVE) Urine Occult Blood Negative (Negative) Urine Nitrate Negative (Negative) Urine Bilirubin Negative (NEGATIVE) Urine Urobilinogen 0.2 (0.2) E.U./dL Ur Leukocyte Esterase Negative (NEGATIVE) Chlamy pneumoniae PCR Not detected (Not Detect) Adenovirus (PCR) Not detected (Not Detect) B.parapertussis DNA PCR Not detected (Not Detecte) Coronavirus OC43 (PCR) Not detected (Not Detect) Coronavirus HKU1 (PCR) Not detected (Not Detect) Coronavirus 229E (PCR) Not detected (Not Detect) SARS-CoV-2 (PCR) Not detected (Not Detecte) Coronavirus NL63 (PCR) Not detected (Not Detect) Human Metapneumovir PCR Not detected (Not Detect) Influenza Type A (PCR) Not detected (Not Detect) Influenza Type B (PCR) Not detected (Not Detect) M. pneumoniae (PCR) Not detected (Not Detect) Parainfluenza 1 (PCR) Not detected (Not Detect) Parainfluenza 2 (PCR) Not detected (Not Detect) Parainfluenza 3 (PCR) Not detected (Not Detect) Parainfluenza 4 (PCR) Not detected (Not Detect) RSV (PCR) Not detected (Not Detect) Entero/Rhino (PCR) Not detected (Not Detect) Imaging Data Chest x-ray: Radiologist's Impression: PROCEDURE: XR CHEST 1V INDICATIONS: Shortness of breath TECHNIQUE: One view of the chest was acquired. COMPARISON: [facility], , XR CHEST 1V, 07/27/2022, 19:54. [facility], , XR CHEST 1V, 02/15/2024, 20:23. FINDINGS: Surgical changes and devices: None. Lungs and pleura: Findings compatible with chronic obstructive pulmonary physiology. Diffuse interstitial prominence of the bilateral lower lung zones with new patchy opacity of the right lung base. Mediastinum: Mediastinal contours appear normal. Heart size is normal. Bones and chest wall: No suspicious bony lesions. Overlying soft tissues appear unremarkable. IMPRESSION: Small patchy opacity of the right lung base possibly representing atelectasis versus early developing airspace disease. Changes compatible with chronic obstructive pulmonary physiology. Recommend follow up chest radiograph 4-6 weeks after treatment to document resolution of findings and/or return to baseline examination. Dictated by: Mook Billings M.D. on 03/23/2024 at 21:34 Approved by: Mook Billings M.D. on 03/23/2024 at 21:35 [facility] Narrative Medical decision making narrative: COPD exacerbation, patient only recently quit smoking. Very restricted air movement in all lung nunez, expiratory wheezing auscultated. DuoNebs, Solu- Medrol, Rocephin ordered for coverage. Laboratory work significant for WBC count 26.3, hemoglobin 13.0, platelets 183, sodium 133, potassium 4.1, creatinine 0.67, troponin undetectable, lactic acid 1.7. Still with significant restriction even after 3 rounds of DuoNebs, patient becomes extremely dyspneic even with minor exertion. Chest x-ray seems to show development of right lower lobe pneumonia. She was already been given Rocephin, azithromycin to be added for coverage. Based on the severity of patient's symptoms as well as right lower lobe pneumonia plan to admit patient to hospital for antibiotics and further treatment. Discharge Plan Departure Patient Disposition: Admitted as Observation Clinical Impression: COPD exacerbation, Pneumonia Admit Date/Time: 03/24/24 00:16 Admit Provider: Gino Astorga
--- NOTE | 2024-03-23 20:52 | EKG_ITS ---
[address] [address] Test Date: 2024-03-23 Pat Name: Dena Stock Department: 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
[2024-03-23] MEDS: methylPREDNISolone 125 MG/2 ML VIAL IV (20:59)
[2024-03-23] MEDS: ALBUTEROL/IPRATROPIUM 3 ML AMPUL 9 ML INH (20:59)
--- NOTE | 2024-03-23 21:03 | PC.NURSE ---
Daughter at bedside and reports a fever earlier tonight of 101 degree Fahrenheit.
[2024-03-23 21:04] LABS: INR 1.1 (0.9-1.3); Prothrombin Time 12.1 SECONDS (9.4-12.5)
[2024-03-23 21:06] LABS: Hematocrit 39.3 % (36-46); Mean Corpuscular HGB Conc 33.1 % (30-36); Mean Corpuscular Hemoglobin 30.9 PG (26-34); Mean Corpuscular Volume 93.6 fL (80-100); Platelet Count 183 X10^3/uL (150-400); Red Cell Distribution Width 14.8 % (11.6-14.8); White Blood Cell Count 26.3 X10^3/uL (4.5-11.0)
[2024-03-23 21:08] LABS: Add Manual Diff / Slide Review YES
[2024-03-23 21:18] LABS: Neutrophils Absolute Manual 23933 /uL (3000-5900); Total Cells Counted 100
[2024-03-23 21:19] LABS: RBC Morphology Normal Morphology
[2024-03-23 21:20] LABS: Alanine Aminotransferase 24 IU/L (<35); Albumin 4.3 g/dL (3.5-5.0); Albumin Globulin Ratio 1.7 (1.0-2.8); Alkaline Phosphatase 87 U/L (38-126); Aspartate Aminotransferase 49 IU/L (14-36); BUN Creatinine Ratio 37.3 (6-22); Bilirubin Total 1.1 mg/dL (0.2-1.3); Blood Urea Nitrogen 25 mg/dL (7-17); Calcium 8.8 mg/dL (8.4-10.2); Carbon Dioxide 24 mmol/L (22-32); Chloride 102 mmol/L (98-107); Estimated Glomerular Filt Rate > 60 mL/min (>60); Globulin 2.6 g/dL (1.7-4.1); Glucose 159 mg/dL (80-110); HEMOLYSIS < 15 (0-50); Potassium 4.1 mmol/L (3.4-5.1); Sodium 133 mmol/L (137-145); Total Protein 6.9 g/dL (6.3-8.2)
[2024-03-23 21:21] LABS: Lactate (Lactic Acid) 1.7 mmol/L (0.7-2.1)
[2024-03-23 21:31] LABS: NT-proBNP (BNP-Adult 18+) 235 pg/mL (<450); Troponin I < 0.012 ng/mL (0.01-0.034)
[2024-03-23] MEDS: cefTRIAXone 1,000 MG in SODIUM CHLORIDE 0.9% 100 ML 200 MG IV (22:12)
[2024-03-23] MEDS: AZITHROMYCIN 500 MG in DEXTROSE 5% IN WATER 250 ML 250 MG IV (22:57)
[2024-03-23 23:11] LABS: Adenovirus Not Detected (Not Detect); B. parapertussis Not Detected (Not Detecte); Bordetella pertussis Not Detected (Not Detect); Chlamydophila pneumoniae Not Detected (Not Detect); Coronavirus 229E Not Detected (Not Detect); Coronavirus HKU1 Not Detected (Not Detect); Coronavirus NL 63 Not Detected (Not Detect); Coronavirus OC43 Not Detected (Not Detect); Human Metapneumovirus Not Detected (Not Detect); Human Rhinovirus/Enterovirus Not Detected (Not Detect); Influenza A Not Detected (Not Detect); Influenza B Not Detected (Not Detect); Mycoplasma pneumoniae Not Detected (Not Detect); Parainfluenza Virus 1 Not Detected (Not Detect); Parainfluenza Virus 2 Not Detected (Not Detect); Parainfluenza Virus 3 Not Detected (Not Detect); Parainfluenza Virus 4 Not Detected (Not Detect); Respiratory Syncytial Virus Not Detected (Not Detect); SARS- CoV-2 Not Detected (Not Detecte)
[2024-03-23 23:29] LABS: Appearance Urine UA CLEAR; Bilirubin Urine UA NEGATIVE (NEGATIVE); Color Urine UA YELLOW; Glucose Urine UA NEGATIVE (Negative); Ketones Urine UA NEGATIVE (NEGATIVE); Leukocyte Esterase Urine UA NEGATIVE (NEGATIVE); Nitrite Urine UA NEGATIVE (Negative); Occult Blood Urine UA NEGATIVE (Negative); Protein Urine UA NEGATIVE (Negative); Specific Gravity Urine UA <=1.005 (1.000-1.035); Urobilinogen Urine UA 0.2 E.U./dL (0.2)
[2024-03-24] VITALS (12 sets, daily range): BP systolic 113–147; BP diastolic 64–88; PULSE 78–88; RESP 18–24; TEMP 36.3–37; O2SAT 92–97; BMI 17.9
--- NOTE | 2024-03-24 01:17 | P.HP_ITS ---
History of Present Illness History of Present Illness Date Patient Seen: 03/24/24 Time Patient Seen: 02:00 Chief complaint: COPD, Dyspnea Narrative: 83 y/o heavy smoker, up until a month ago, and Hx of oxygen-dependent COPD - since last month. She was hospitalized with COPD exacerbation, hypoxemic, and was discharged home on oxygen. She was using it, together with Symbicort, Spiriva and albuterol but still developed congestion, productive cough and severe shortness of breath. ED workup showing RLL infiltrate, leukocytosis. Admitted with PNA and COPD exacerbation. [facility] Medical History Spondyloarthritis Smoker unmotivated to quit Hyperlipidemia COPD (chronic obstructive pulmonary disease) Depression GERD without esophagitis Surgical History S/P tonsillectomy S/P cholecystectomy S/P appendectomy Social History household members: family Smoking Status: Former smoker alcohol intake: current Meds Home Medications and Allergies Home Medications Medication Instructions Recorded Confirmed Type calcium polycarbophil 625 mg 2 tab PO BID ##0 10/27/16 03/24/24 History tablet (FiberCon) aspirin 81 mg tablet,delayed 81 mg PO DAILY #30 tabs 04/01/22 03/24/24 Rx release (Adult Aspirin Regimen) Disabled Parking Permit #1 ea 08/14/23 03/24/24 Rx omeprazole 20 mg capsule,delayed 20 mg PO DAILY #30 caps 10/13/23 03/24/24 Rx release budesonide-formoterol HFA 80 2 puff inhalation BID #10.2 grams 10/15/23 03/24/24 Rx mcg-4.5 mcg/actuation aerosol inhaler rosuvastatin 5 mg tablet 5 mg PO DAILY #90 tabs 01/15/24 03/24/24 Rx fluoxetine 40 mg capsule 40 mg PO DAILY #90 caps 01/22/24 03/24/24 Rx gabapentin 300 mg capsule 300 mg PO BID #180 caps 01/27/24 03/24/24 Rx prednisone 20 mg tablet 40 mg (2 x 20 mg) PO DAILY #10 tabs 02/15/24 03/24/24 Rx albuterol sulfate 90 mcg/actuation 2 puff inhalation Q2HP PRN 03/04/24 03/24/24 Rx aerosol inhaler (Ventolin HFA) breathing #8.5 grams tiotropium bromide 18 mcg capsule 1 cap inhalation QDAY #90 ea 03/04/24 03/24/24 Rx with inhalation device (Spiriva with HandiHaler) Allergies Allergy/AdvReac Type Severity Reaction Status Date / Time No Known Drug Allergies Allergy Verified 01/27/24 11:26 Review of Systems Constitutional Comments: generalized weakness Cardiovascular Comments: w/o chest pain Respiratory Comments: shortness of breath, initially productive cough that subsided last day, w/o hemoptysis, w/o pleursy Integumentary/Breasts Comments: w/o rashes Exam Vital Signs (past 8 hours): - 03/23/24 20:21 03/23/24 20:41 03/23/24 20:51 Temperature 99.6 F Pulse Rate 94 H 93 H 92 H Respiratory Rate 22 26 H Blood Pressure 144/67 H Pulse Oximetry 92 92 93 Oxygen Delivery Method Room Air Oxygen Flow Rate Fraction of Inspired Oxygen 03/23/24 20:51 03/23/24 20:59 03/23/24 21:00 Temperature Pulse Rate 88 Respiratory Rate 22 Blood Pressure 138/63 133/63 Pulse Oximetry 93 Oxygen Delivery Method Nasal Cannula Oxygen Flow Rate 3 Fraction of Inspired Oxygen 32 03/23/24 21:00 03/23/24 21:30 03/23/24 21:30 Temperature Pulse Rate 90 97 H Respiratory Rate 27 H 26 H Blood Pressure 132/61 Pulse Oximetry 94 91 Oxygen Delivery Method Oxygen Flow Rate Fraction of Inspired Oxygen 03/23/24 22:00 03/23/24 22:00 03/23/24 22:30 Temperature Pulse Rate 98 H Respiratory Rate 23 Blood Pressure 143/61 H 145/63 H Pulse Oximetry 94 Oxygen Delivery Method Nasal Cannula Oxygen Flow Rate 3 Fraction of Inspired Oxygen 03/23/24 22:30 03/23/24 23:00 03/23/24 23:00 Temperature Pulse Rate 96 H 95 H Respiratory Rate 24 20 Blood Pressure 143/66 H Pulse Oximetry 94 94 Oxygen Delivery Method Nasal Cannula Oxygen Flow Rate 3 Fraction of Inspired Oxygen 03/23/24 23:30 03/24/24 00:00 03/24/24 00:30 Temperature Pulse Rate Respiratory Rate Blood Pressure 121/61 141/64 H 130/88 Pulse Oximetry Oxygen Delivery Method Oxygen Flow Rate Fraction of Inspired Oxygen 03/24/24 01:00 Temperature Pulse Rate Respiratory Rate 22 Blood Pressure 141/70 H Pulse Oximetry 94 Oxygen Delivery Method Nasal Cannula Oxygen Flow Rate 3 Fraction of Inspired Oxygen Fraction of Inspired Oxygen 32 SaO2/FiO2 Ratio 290 Oxygen Delivery Method Nasal Cannula Oxygen Flow Rate 3 Const Other: sitting in bed in no distress appears cachectic HENMT Other: temporal wasting, sunken eyes, glasses O2 via NC Eyes Other: eomi Neck Other: w/o swelling Resp Other: rhonchi, b/l. Not too wheezy Cardio Other: RRR GI Other: not distended Neuro Other: w/o deficits Extrem Other: w/o swelling Psych Other: appropriate mood, somewhat forgetful Objective Labs 03/24/24 04:40 03/24/24 04:40 Labs: Laboratory Results - last 24 hr 03/23/24 03/23/24 03/23/24 20:33 20:56 23:22 WBC 26.3 H RBC 4.20 Hgb 13.0 Hct 39.3 MCV 93.6 MCH 30.9 MCHC 33.1 RDW 14.8 Plt Count 183 Neut % (Auto) Not Reportable Lymph % (Auto) Not Reportable [place] % (Auto) Not Reportable Eos % (Auto) Not Reportable Baso % (Auto) Not Reportable Lymph # (Auto) Not Reportable [place] # (Auto) Not Reportable Baso # (Auto) Not Reportable Total Counted 100 Seg Neutrophils % 84.0 H Band Neutrophils % 7.0 Lymphocytes % (Manual) 4.0 L Monocytes % (Manual) 4.0 Eosinophils % (Manual) 1.0 L Neutrophils # (Manual) 23653 H RBC Morphology Normal morphology PT 12.1 INR 1.1 Sodium 133 L Potassium 4.1 Chloride 102 Carbon Dioxide 24 BUN 25 H Creatinine 0.67 Estimated GFR > 60 BUN/Creatinine Ratio 37.3 H Glucose 159 H Lactate 1.7 Calcium 8.8 Total Bilirubin 1.1 AST 49 H ALT 24 Alkaline Phosphatase 87 Troponin I < 0.012 NT-Pro-B Natriuret Pep 235 Total Protein 6.9 Albumin 4.3 Globulin 2.6 Albumin/Globulin Ratio 1.7 Urine Color Yellow Urine Appearance Clear Urine pH 7.0 Ur Specific [place] <=1.005 Urine Protein Negative Urine Glucose (UA) Negative Urine Ketones Negative Urine Occult Blood Negative Urine Nitrate Negative Urine Bilirubin Negative Urine Urobilinogen 0.2 Ur Leukocyte Esterase Negative Chlamy pneumoniae PCR Not detected Adenovirus (PCR) Not detected B.parapertussis DNA PCR Not detected Coronavirus OC43 (PCR) Not detected Coronavirus HKU1 (PCR) Not detected Coronavirus 229E (PCR) Not detected SARS-CoV-2 (PCR) Not detected Coronavirus NL63 (PCR) Not detected Human Metapneumovir PCR Not detected Influenza Type A (PCR) Not detected Influenza Type B (PCR) Not detected M. pneumoniae (PCR) Not detected Parainfluenza 1 (PCR) Not detected Parainfluenza 2 (PCR) Not detected Parainfluenza 3 (PCR) Not detected Parainfluenza 4 (PCR) Not detected RSV (PCR) Not detected Entero/Rhino (PCR) Not detected Assessment & Plan Assessment and plan (1) Pneumonia: Status: Acute (2) COPD exacerbation: Status: Acute (3) GERD without esophagitis: Status: Chronic (4) Depression: Qualifiers: Depression Type: unspecified Qualified Code(s): F32.A - Depression, unspecified Status: Chronic (5) Spondyloarthritis: Status: Chronic Assessment & Plan narrative: Pneumonia / RLL infiltrate - on average she coughs and chocks on food twice a week. Usually smaller, dry items. - speech Tx for swallowing assessment - Rocephin, Zithromax COPD Exacerbation - Solumedrol - oxygen, albuterol, Mucinex Neuropathic Pain - gabapentin Depression - Prozac GERD - PPI DVT prophylaxis - Lovenox Patient seen at [place], via real-time, interactice system with stethoscope capability and RN at bedside. Provider located in OR.
--- NOTE | 2024-03-24 02:23 | CM.MNRNOTE ---
Patient admitted to room 220, oriented to her room. Reported had a fall when I was in the hospital, slipped out in the wheelchair. Did not remember when. Bed alarm activated, instructed not to get OOB without any assistance. Call light with in reached, will cont. POC & monitor.
[2024-03-24] MEDS: ACETAMINOPHEN 325 MG TABLET 650 MG PO (02:51)
[2024-03-24] MEDS: PANTOPRAZOLE DR 20 MG TABLET PO (05:37)
[2024-03-24 05:47] LABS: Add Manual Diff / Slide Review NO; Basophils Absolute Auto 0 /uL (0-100); Eosinophils Absolute Auto 0 /uL (0-450); Hemoglobin 12.7 g/dL (12.0-16.0); Lymphocytes Absolute Auto 500 /uL (1100-4500); Lymphocytes Percent Auto 2.2 % (25-40); Mean Corpuscular HGB Conc 33.3 % (30-36); Mean Corpuscular Hemoglobin 31.3 PG (26-34); Mean Corpuscular Volume 93.9 fL (80-100); Monocytes Absolute Auto 600 /uL (0-900); Monocytes Percent Auto 2.4 % (3-14); Neutrophils Absolute Auto 23600 /uL (1500-7000); Neutrophils Percent Auto 95.4 % (50-75); Platelet Count 171 X10^3/uL (150-400); Red Blood Cell Count 4.05 X10^6/uL (4.0-5.2); Red Cell Distribution Width 14.3 % (11.6-14.8); White Blood Cell Count 24.7 X10^3/uL (4.5-11.0)
[2024-03-24 05:57] LABS: BUN Creatinine Ratio 33.9 (6-22); Blood Urea Nitrogen 20 mg/dL (7-17); Calcium 8.9 mg/dL (8.4-10.2); Carbon Dioxide 25 mmol/L (22-32); Chloride 103 mmol/L (98-107); Estimated Glomerular Filt Rate > 60 mL/min (>60); Glucose 206 mg/dL (80-110); HEMOLYSIS < 15 (0-50); Potassium 3.6 mmol/L (3.4-5.1); Sodium 135 mmol/L (137-145)
--- NOTE | 2024-03-24 07:27 | PC.NURSE ---
Dr. Echols ordered in & out cath, for PVR > 350 cc. Reported to day RN.
[2024-03-24] MEDS: methylPREDNISolone 125 MG/2 ML VIAL 60 MG IV (08:55)
[2024-03-24] MEDS: GABAPENTIN 100 MG CAPSULE PO ×3 (08:55→20:18)
[2024-03-24] MEDS: guaiFENesin ER 600 MG TAB PO ×2 (08:55→20:18)
[2024-03-24] MEDS: ALBUTEROL 2.5 MG/3 ML NEB (ADULT) INH (08:55)
[2024-03-24] MEDS: FLUoxetine 20 MG CAPSULE 40 MG PO (08:55)
[2024-03-24] MEDS: SODIUM CHLORIDE 0.9% FLUSH 10 ML IV ×2 (08:57→20:19)
[2024-03-24] MEDS: ENOXAPARIN 30 MG/0.3 ML SYRINGE SUBCUT (09:09)
--- NOTE | 2024-03-24 11:59 | CM.DANOTE ---
Addendum entered by PRETTY Soto 03/24/24 12:36: ADD: Per ST, modifying pt's diet to softer solids and recommending MBS to r/o silent aspiration but cannot occur until tomorrow 03/25 likely in the AM. SW added ST to [facility] referral. BF Original Note: Patient is an 83 yo female who was admitted OBS Status on 03/24/24 for Pneumonia/COPD exac. Pt has [facility] for insurance and her PCP is Cornelia Higginbotham but will be switching to Serina Faulkner. EMR was reviewed. Per MD, pt a heavy smoker with recent cessation and is oxygen dependent with COPD at baseline. Pt recently here last month February 2024 for similar and discharged home. Pt now with pneumonia and COPD exacerbation and received IV-Abx. Per RN, pt has been able to ambulate with 1PA with FWW but SOB with exertion. ST ordered and pending for 1200 eval today. SW met bedside with pt and explained role and pt confirms she resides alone in her own apartment below her grandson/family, her local dtr Sharri is DPOA. Dtr will plan to transport pt back home once she's medically cleared for home d/c. Per dtr, pt is very independent, no longer drives, but dtr assists with taking her shopping and to her appointments. Family is working to get a better system for pt to be more mobile with her oxygen tank since pt is petite and difficult to carry around her tank and looking into oxygen backpacks. Pt confirms that she did not work with [facility] after discharge last month as she does not answer calls from unknown callers and worried about Scams. Family confirms they are willing to be the contact for coordination of HH so that the calls do not get ignored. Dtr likely to be the contact lens technician. Pt also might be interested in PP CG list and SW provided for her and family to review. Pt may have mild cognitive impairment as she stated multiple times she gets a little befuddled with coordination of health care and overwhelmed with some information but may be that pt had some urinary retention and SOB. HELADIO Madrid kindly sent new referral to [facility] and F2F and HH orders completed and Dtr identified as contact for coordination. Plan: SW to follow to confirm discharge home via family POV later today with new [facility] referral made and PP CG agency list provided. PRETTY Soto Discharge Planning/Care Management CM Discharge Assessment Start: 03/24/24 11:55 Freq: Status: Active Protocol: Document 03/24/24 11:55 BF (Rec: 03/24/24 11:58 BF [id number]) Discharge Planning Assessment Assigned Curve Cleaner PRETTY Muñoz DPOA/Assigned Designee Name Dtr Sharri Ronquillo Contact Information [phone] Advance Directives? Yes Advance Directives on File No History Provided By Patient,Medical Record Has Patient been admitted in last 30 No days? Comment Just recently discharged Feb 16 2024 to home with new [facility] referral made Prior Living Arrangements House Household Members family Comment Lives alone downstairs. Grandson and family live upstairs Type of transporation used prior to Relies on Others admit Independent with ADL's Yes: mostly Is patient alert and oriented? Yes: mostly, maybe some mild cog impairment Needs Assistance With Managing Medications,Home Chores / Shopping Caregiver for Another No Community Services used prior to Oxygen Therapy admission: DME Already Rented / Owned FWW / Walker Patient/Family Preference Home with Home Health Barriers to Discharge No Comment Patient would like to return home w/family support and family will help to coordinate HH Discharge Plan Home with Home Health Community Services Oxygen Therapy,Physical Therapy,Home Health Nurse Transportation Arrangement Family Referrals Initiated Home Health If patient plan is home with home health Yes : Has signed face to face form been completed? Medicare Choice List Provided Yes Medicare choice list reviewed on patient,family electronic tablet with SNF/HH Preference [facility] Whiteboard Updated in Patient Room with Yes name and ext. # of Curve Cleaner Review Status In Process Please Provide Date Initial DC 03/24/24 Assessment Was Performed Next Review Type Continued Stay Review
--- NOTE | 2024-03-24 13:21 | ST.IPCSEOM ---
Visit Care Team Role Provider Type Cornelia Higginbotham DO Primary Care Provider Physician Specialty: Family Practice Address: [address] [place] [address], [facility] [address], [place], [address] Email: [email or web address] RIA Lizama Family Provider Non-Staff Specialty: Medical Address: [address] [place] [address], [facility] [address], [place], [address] Email: Merary Haynes MD Emergency Provider Physician Referring Provider Specialty: Emergency Medicine Address: [address] [place] [address], [id number] Email: Gino Echols MD Admit Provider Physician Attending Provider Specialty: Internal Medicine Address: [address] [place] [address], [id number] Email: [email or web address] Diagnoses Depression, unspecified (03/24/24) Pneumonia, unspecified organism (03/24/24) Chronic obstructive pulmonary disease with (acute) exacerbation (03/24/24) Gastro-esophageal reflux disease without esophagitis (03/24/24) Spondylosis without myelopathy or radiculopathy, site unspecified (03/24/24) Past Medical History (Last Reviewed 03/24/24 @ 06:39 by Gino Echols MD) COPD (chronic obstructive pulmonary disease) (Medical) Depression (Medical) GERD without esophagitis (Medical) Hyperlipidemia (Medical) Smoker unmotivated to quit (Social Hx) Spondyloarthritis (Medical) Speech-Language Pathology Swallow Evaluation DEVELOPMENT WRITER Clinical Swallow Evaluation Start: 03/24/24 09:26 Freq: Status: Active Protocol: Document 03/24/24 09:26 CG (Rec: 03/24/24 09:33 CG [id number]) Clinical Swallow Evaluation Session Time Visit Start Time 12:05 Visit Stop Time 12:35 Total Visit Minutes 30 Visit Information Visit Number [address] Gino Echols Reason for Referral suspected aspiration PNA Setting Assessment Location Acute Care Visit Type Note Type Initial evaluation Patient Information History Per H&P: 83 y/o heavy smoker, up until a month ago, and Hx of oxygen-dependent COPD - since last month. She was hospitalized with COPD exacerbation, hypoxemic, and was discharged home on oxygen. She was using it, together with Symbicort, Spiriva and albuterol but still developed congestion, productive cough and severe shortness of breath . ED workup showing RLL infiltrate, leukocytosis. Admitted with PNA and COPD exacerbation. Additionally, per records, pt has PMHx significant for GERD without esophagitis, COPD, lifelong smoker (unmotivated to quit), hyperlipidemia, and spondyloarthritis. Pt referred to ST due to possibility of aspiration PNA. Pt is currently on a regular (heart healthy) diet and thin liquids. Subjective Observations Nursing reported to DEVELOPMENT WRITER that pt was choking on vega this morning with breakfast. She reportedly has had no difficulty with liquids, soft foods like applesauce/oatmeal, or pills according to nursing . Pt was seated upright EOB upon entry to room. She was alert, oriented, and agreeable to DEVELOPMENT WRITER evaluation. She did state that she tends to get nervous when being assessed by healthcare professionals and was nervous about being watched while eating/drinking. Pt presents with wet cough at baseline. She c/o phlegm and food getting stuck in her throat. In particluar, she feels that small pieces of food tend to break off and get stuck. She endorses nursing report of coughing on crispy vega pieces this morning. Reported by Patient/Caregiver Other Symptoms Choking,Coughing,Food gets stuck,History of aspiration or pneumonia Comment Nursing reports pt choking on vega this morning with breakfast. Recent CXR suspicious for aspiration pneumonia. Current Diet Regular (IDDSI 7) Baseline Feeding Method Independent in self-feeding The IDDSI Framework Protocol: IDDSI.1 Objective Assessment Mental Status Alert,Responsive,Cooperative Oral Integrity WFL,Thrush Dentition Missing teeth,Upper dentures/ partials Lip Function Within normal limits Pucker Within normal limits Lip Retraction Within normal limits Tongue Function Within normal limits Tongue Protrusion Within normal limits Tongue Lateralization Within normal limits Respiratory Sufficiency Mild impairment Comment -Pt has partial uppers but was not wearing them during evaluation -Possible mild thrush on tongue Food and Liquid Trials Position During Assessment Upright (90 degrees) Liquids Trialed Thin (IDDSI 0) Solid Trials Soft & Bite-sized (IDDSI 6) Administration Type Cup single sip,Self-feeding Oral Impairment Moderately impaired Oral Phase Comments Thin liquid (latte, orange juice) via cup sip: -good oral acceptance and adequate suction to propel bolus into oral cavity -lingual bolus hold appears WFL -mildly prolongued/ disorganized-appearing A-P lingual movement -suspect possible premature spillage from oral cavity to pharynx prior to pharyngeal swallow initiation Soft and bite sized solids ( pork and vega soup with pieces of meat/onion): -good oral acceptance -lingual bolus hold appears WFL -mildly prolongued mastication time -mildly disorganized mastication -mildly prolongued/ disorganized-appearing A-P lingual movement -suspect possible premature spillage from oral cavity to pharynx prior to pharyngeal swallow initiation Pharyngeal Phase Comments Thin liquid (latte, orange juice) via cup sip: -audible swallow, possibly indicative of disorganization -wet vocal quality and throat clearing after all swallows -cough after 50% swallows -pt states that she doesn't typically cough with liquids but was feeling nervous due to being watched/assessed Soft and bite sized solids ( pork and vega soup with pieces of meat/onion, mixed consistency with thin broth): -audible swallow, possibly indicative of disorganization -wet vocal quality and throat clearing after all swallows Results Clinical swallow evaluation is summarized as follows: -there is evidence of disorganized lingual movement, i.e. A-P bolus propulsion -mild-moderate deficits in mastication -there are overt s/sx consistent with aspiration -pt states aspiration symptoms are due to nerves -there is concern that pt may be chronically aspirating based on compromised respiratory status combined with hx smoking (which can be associated with reduced laryngeal sensation) -recommending modified barium swallow for objective assessment of swallow function to determine if aspiration symptoms are indicative of chronic aspiration or due to pt anxiety with exam -recommending minced and moist solids based on pt a nursing reports of difficulty with crunchy/crumbly foods The IDDSI Framework Protocol: IDDSI.1 Findings Swallowing Function Oropharyngeal phase dysphagia Severity of Swallow Impairment Moderately impaired Contributing Factors to Swallow Impaired oral-pharyngeal Impairment transport,Impaired airway protection Prognosis Fair Based on Age,Other (comment) Comment -Studies have shown that hx of smoking is associated with increased risk of developing aspiration pneumonia Impact on Safety and Functioning Risk for aspiration Recommendations Instrumental Assessment Yes Recommended Solids Minced & Moist (IDDSI 5) Recommended Liquids Thin (IDDSI 0) Safety Precautions/Swallowing Upright position at least 30 Recommendations minutes after meals,Small bites and sips when eating, Slow rate; swallow between bites Medication Recommendations As Tolerated Discharge Recommendations Home Education Patient/Caregiver Education Described results of evaluation,Patient expressed understanding of evaluation, Patient expressed agreement with goals & treatment plans, Family/caregivers expressed understanding of evaluation, Family/caregivers require further education/training Goals Short-term Goals Pt will complete a modified barium swallow study to objectively evaluate swallow function and assess for aspiration. Long-term Goals Pt will safely and efficiently tolerate least restrictive diet in order to meet her nutrition/hydration needs.
--- NOTE | 2024-03-24 13:23 | SLP.IPNOTE ---
DEPARTMENT OF SOCIOLOGY CHAIR recommendations as of 03/24/24, 1330pm: 1. Upright 90 degrees all meals 2. Minced and moist solids. One bite at a time 3. Thin liquids in small sips, one sip at a time 4. Encourage frequent oral care 5. Pt to complete MBSS tomorrow morning at 10:30 AM to assess for aspiration 6. Further recommendations pending MBSS results
--- NOTE | 2024-03-24 13:27 | PM.HP.1 ---
History of Present Illness History of Present Illness Date Patient Seen: 03/24/24 Time Patient Seen: 13:27 Chief complaint: COPD, Dyspnea Narrative: Per overnight provider, 83 y/o heavy smoker, up until a month ago, and Hx of oxygen-dependent COPD - since last month. She was hospitalized with COPD exacerbation, hypoxemic, and was discharged home on oxygen. She was using it, together with Symbicort, Spiriva and albuterol but still developed congestion, productive cough and severe shortness of breath. ED workup showing RLL infiltrate, leukocytosis. Admitted with PNA and COPD exacerbation. This is an 83 year old female with PMH of COPD, chronic respiratory failure at baseline on O2 with activity only who presented with RLL PNA and COPD exacerbation. She is improving today, had some vega get stuck this morning, has had difficulties ongoing. UX ENGINEER recommending barium swallow, unable to do until tomorrow. [facility] Medical History Spondyloarthritis Smoker unmotivated to quit Hyperlipidemia COPD (chronic obstructive pulmonary disease) Depression GERD without esophagitis Surgical History S/P tonsillectomy S/P cholecystectomy S/P appendectomy Social History household members: family Smoking Status: Former smoker alcohol intake: current Meds Home Medications and Allergies Home Medications Medication Instructions Recorded Confirmed Type calcium polycarbophil 625 mg 2 tab PO BID ##0 10/27/16 03/24/24 History tablet (FiberCon) aspirin 81 mg tablet,delayed 81 mg PO DAILY #30 tabs 04/01/22 03/24/24 Rx release (Adult Aspirin Regimen) Disabled Parking Permit #1 ea 08/14/23 03/24/24 Rx omeprazole 20 mg capsule,delayed 20 mg PO DAILY #30 caps 10/13/23 03/24/24 Rx release budesonide-formoterol HFA 80 2 puff inhalation BID #10.2 grams 10/15/23 03/24/24 Rx mcg-4.5 mcg/actuation aerosol inhaler rosuvastatin 5 mg tablet 5 mg PO DAILY #90 tabs 01/15/24 03/24/24 Rx fluoxetine 40 mg capsule 40 mg PO DAILY #90 caps 01/22/24 03/24/24 Rx gabapentin 300 mg capsule 300 mg PO BID #180 caps 01/27/24 03/24/24 Rx prednisone 20 mg tablet 40 mg (2 x 20 mg) PO DAILY #10 tabs 02/15/24 03/24/24 Rx albuterol sulfate 90 mcg/actuation 2 puff inhalation Q2HP PRN 03/04/24 03/24/24 Rx aerosol inhaler (Ventolin HFA) breathing #8.5 grams tiotropium bromide 18 mcg capsule 1 cap inhalation QDAY #90 ea 03/04/24 03/24/24 Rx with inhalation device (Spiriva with HandiHaler) Allergies Allergy/AdvReac Type Severity Reaction Status Date / Time No Known Drug Allergies Allergy Verified 01/27/24 11:26 Review of Systems Review of Systems Narrative: All other systems reviewed with the patient and are negative unless otherwise stated. Exam Vital Signs (past 8 hours): - 03/24/24 08:00 03/24/24 08:00 03/24/24 11:37 Temperature 97.4 F L 98.3 F Pulse Rate 79 82 Respiratory Rate 18 18 Blood Pressure 113/70 144/66 H Pulse Oximetry 97 94 Oxygen Delivery Method Nasal Cannula Oxygen Flow Rate 2 Fraction of Inspired Oxygen 28 SaO2/FiO2 Ratio 342 Oxygen Delivery Method Nasal Cannula Oxygen Flow Rate 2 Narrative Exam Narrative: General:? Patient is thin appearing, in no distress at this time. Chronically coughing HEENT:? Normocephalic, atraumatic, extraocular muscles intact, oral pharynx is clear and mucous membranes are moist. Neck: supple and symmetric, trachea is midline, no cervical adenopathy. Negative for JVD Chest:? Normal AP diameter and contour without kyphoscoliosis, no tachypnea, equal chest rise bilaterally. Lungs:? CTA b/l no wheezing rhonchi or rales. Cardio:?RRR no m/r/g. Abdomen: S NT ND. Musculoskeletal:? Muscle strength and tone are equal within normal limits, no deformity. Extremities: No edema or joint effusions. No cyanosis or clubbing. Skin:? Pale,? Warm to touch,dry and intact without rashes, ulcerations or petechiae.? Neuro:? Alert and orientated x3,? sensation to touch intact in all extremities, no gross deficits noted of cranial nerves. Psych:? Patient has a well-kept appearance, appropriate affect, mental status attitude thought context and judgment are appropriate for age. Objective Labs 03/24/24 04:40 03/24/24 04:40 Labs: Laboratory Results - last 24 hr 03/23/24 03/23/24 03/23/24 20:33 20:56 23:22 WBC 26.3 H RBC 4.20 Hgb 13.0 Hct 39.3 MCV 93.6 MCH 30.9 MCHC 33.1 RDW 14.8 Plt Count 183 Neut % (Auto) Not Reportable Lymph % (Auto) Not Reportable [place] % (Auto) Not Reportable Eos % (Auto) Not Reportable Baso % (Auto) Not Reportable Neut # (Auto) Lymph # (Auto) Not Reportable [place] # (Auto) Not Reportable Eos # (Auto) Baso # (Auto) Not Reportable Total Counted 100 Seg Neutrophils % 84.0 H Band Neutrophils % 7.0 Lymphocytes % (Manual) 4.0 L Monocytes % (Manual) 4.0 Eosinophils % (Manual) 1.0 L Neutrophils # (Manual) 21286 H RBC Morphology Normal morphology PT 12.1 INR 1.1 Sodium 133 L Potassium 4.1 Chloride 102 Carbon Dioxide 24 BUN 25 H Creatinine 0.67 Estimated GFR > 60 BUN/Creatinine Ratio 37.3 H Glucose 159 H Lactate 1.7 Calcium 8.8 Total Bilirubin 1.1 AST 49 H ALT 24 Alkaline Phosphatase 87 Troponin I < 0.012 NT-Pro-B Natriuret Pep 235 Total Protein 6.9 Albumin 4.3 Globulin 2.6 Albumin/Globulin Ratio 1.7 Urine Color Yellow Urine Appearance Clear Urine pH 7.0 Ur Specific Arnot <=1.005 Urine Protein Negative Urine Glucose (UA) Negative Urine Ketones Negative Urine Occult Blood Negative Urine Nitrate Negative Urine Bilirubin Negative Urine Urobilinogen 0.2 Ur Leukocyte Esterase Negative Chlamy pneumoniae PCR Not detected Adenovirus (PCR) Not detected B.parapertussis DNA PCR Not detected Coronavirus OC43 (PCR) Not detected Coronavirus HKU1 (PCR) Not detected Coronavirus 229E (PCR) Not detected SARS-CoV-2 (PCR) Not detected Coronavirus NL63 (PCR) Not detected Human Metapneumovir PCR Not detected Influenza Type A (PCR) Not detected Influenza Type B (PCR) Not detected M. pneumoniae (PCR) Not detected Parainfluenza 1 (PCR) Not detected Parainfluenza 2 (PCR) Not detected Parainfluenza 3 (PCR) Not detected Parainfluenza 4 (PCR) Not detected RSV (PCR) Not detected Entero/Rhino (PCR) Not detected 03/24/24 04:40 WBC 24.7 H RBC 4.05 Hgb 12.7 Hct 38.0 MCV 93.9 MCH 31.3 MCHC 33.3 RDW 14.3 Plt Count 171 Neut % (Auto) 95.4 H Lymph % (Auto) 2.2 L [place] % (Auto) 2.4 L Eos % (Auto) 0.0 L Baso % (Auto) 0.0 Neut # (Auto) 44377 H Lymph # (Auto) 500 L [place] # (Auto) 600 Eos # (Auto) 0 Baso # (Auto) 0 Total Counted Seg Neutrophils % Band Neutrophils % Lymphocytes % (Manual) Monocytes % (Manual) Eosinophils % (Manual) Neutrophils # (Manual) RBC Morphology PT INR Sodium 135 L Potassium 3.6 Chloride 103 Carbon Dioxide 25 BUN 20 H Creatinine 0.59 Estimated GFR > 60 BUN/Creatinine Ratio 33.9 H Glucose 206 H Lactate Calcium 8.9 Total Bilirubin AST ALT Alkaline Phosphatase Troponin I NT-Pro-B Natriuret Pep Total Protein Albumin Globulin Albumin/Globulin Ratio Urine Color Urine Appearance Urine pH Ur Specific Arnot Urine Protein Urine Glucose (UA) Urine Ketones Urine Occult Blood Urine Nitrate Urine Bilirubin Urine Urobilinogen Ur Leukocyte Esterase Chlamy pneumoniae PCR Adenovirus (PCR) B.parapertussis DNA PCR Coronavirus OC43 (PCR) Coronavirus HKU1 (PCR) Coronavirus 229E (PCR) SARS-CoV-2 (PCR) Coronavirus NL63 (PCR) Human Metapneumovir PCR Influenza Type A (PCR) Influenza Type B (PCR) M. pneumoniae (PCR) Parainfluenza 1 (PCR) Parainfluenza 2 (PCR) Parainfluenza 3 (PCR) Parainfluenza 4 (PCR) RSV (PCR) Entero/Rhino (PCR) Assessment & Plan Assessment & Plan narrative: Probable aspiration Pneumonia / RLL infiltrate with acute on chronic respiratory failure with hypoxia. - on average she coughs and chocks on food twice a week. Usually smaller, dry items. - speech Tx for swallowing assessment, pending barium swallow will be tomorrow. - Continue Rocephin, Zithromax. Change from solumedrol to prednisone. - at baseline on O2 with activity, has diffficulty getting around with current oxygen tanks, etc. COPD Exacerbation - Solumedrol initially, okay for change to prednisone. - oxygen as needed O2 saturations >89% to 96%, albuterol, Mucinex Neuropathic Pain - continue home gabapentin Depression - continie home Prozac GERD - continue home PPI DVT prophylaxis - Lovenox Code: Full, surrogate is patient's daughter Dispo: Observation, patient back at usual home O2, pending UX ENGINEER eval and barium swallow, probable discharge home tomorrow. Code: Full, surrogate is patient's spouse DVT: Lovenox daily I have utilized all available immediate resources to obtain, update, or review the patient's current medications. Additional history obtained via discussions with the overnight provider, nursing staff, case management. These discussions contributed to the creation of the above assessment and plan. I have reviewed patient's presenting documentation, labs, and imaging personally. Quality VTE Deep Vein Thrombosis/Pulmonary Embolism Present on Admission: No
[2024-03-24] MEDS: cefTRIAXone 1,000 MG in SODIUM CHLORIDE 0.9% 100 ML 200 MG IV (21:25)
[2024-03-24] MEDS: AZITHROMYCIN 500 MG in DEXTROSE 5% IN WATER 250 ML 250 MG IV (22:30)
[2024-03-25 08:00] VITALS: BP 153/77; PULSE 82; RESP 20; TEMP 36.5; O2SAT 96
[2024-03-25] MEDS: predniSONE 20 MG TABLET 40 MG PO (08:59)
[2024-03-25] MEDS: guaiFENesin ER 600 MG TAB PO (09:00)
[2024-03-25] MEDS: GABAPENTIN 100 MG CAPSULE PO (09:00)
[2024-03-25] MEDS: FLUoxetine 20 MG CAPSULE 40 MG PO (09:00)
[2024-03-25] MEDS: ENOXAPARIN 30 MG/0.3 ML SYRINGE SUBCUT (09:01)
[2024-03-25] MEDS: SODIUM CHLORIDE 0.9% FLUSH 10 ML IV (09:03)
--- NOTE | 2024-03-25 10:25 | PC.NURSE ---
Day shift: Off unit for barium swallow at approx 1020.
--- NOTE | 2024-03-25 10:30 | DI.RAD.S_ITS ---
PROCEDURE: FL BARIUM SWALLOW W SPEECH INDICATIONS: possible aspiration COMPARISON: TECHNIQUE: Examination was conducted in conjunction with speech pathology per standard protocol. In the lateral projection, filming was performed of the patient swallowing. AP projection filming may also be performed with patient swallowing. COMPARISON: [facility], CR, XR CHEST 1V, 03/23/2024, 21:14. FINDINGS: Function: The oral preparatory phase appears normal, with proper containment. The subsequent oral propulsive phase, pharyngeal phase, and esophageal phase of swallowing also appear normal with all proffered substances. Trace laryngotracheal penetration without marquita aspiration. No pathologic vallecular pooling. Morphology: No cricopharyngeal bar is identified. No cervical esophageal webs. No Zenker's diverticulum. No strictures. IMPRESSION: 1. Trace laryngeal penetration without marquita aspiration. Please see separate speech pathologist's report. Dictated by: Kalpana Rios M.D. on 03/25/2024 at 14:46 Approved by: Kalpana Rios M.D. on 03/25/2024 at 14:47
--- NOTE | 2024-03-25 11:24 | PC.NURSE ---
Day shift: Back in room at approx 1115 fro barium swallow test.
[2024-03-25 12:09] VITALS: BP 168/77; PULSE 84; RESP 22; TEMP 36.9; O2SAT 96
--- NOTE | 2024-03-25 12:09 | P.DS_ITS ---
History of Present Illness History of Present Illness Date Patient Seen: 03/25/24 Time Patient Seen: 15:59 Chief complaint: COPD, Dyspnea Narrative: Per overnight provider, 83 y/o heavy smoker, up until a month ago, and Hx of oxygen-dependent COPD - since last month. She was hospitalized with COPD exacerbation, hypoxemic, and was discharged home on oxygen. She was using it, together with Symbicort, Spiriva and albuterol but still developed congestion, productive cough and severe shortness of breath. ED workup showing RLL infiltrate, leukocytosis. Admitted with PNA and COPD exacerbation. This is an 83 year old female with PMH of COPD, chronic respiratory failure at baseline on O2 with activity only who presented with RLL PNA and COPD exacerbation. She is improving today, had some vega get stuck this morning, has had difficulties ongoing. STRATEGY INTERN recommending barium swallow, unable to do until tomorrow. Discharge Providers Provider Date of admission: 03/24/24 00:16 Discharge Date: 03/25/24 Primary care physician: Cornelia Higginbotham DO Consults: 03/24/24 06:58 Consult to Speech Therapy Evaluate & Treat Comment: aspiration pna Physician Instructions: Evaluate and treat 03/24/24 12:13 Consult to Home Health Routine Comment: COPD, pneumonia, home oxygen Reason For Exam: Set up HH RN/PT for discharge to home Discharge provider: Andrew Franco DO Summary Hospital Course Discharge Diagnosis: Probable aspiration Pneumonia / RLL infiltrate with acute on chronic respiratory failure with hypoxia. COPD Exacerbation Neuropathic Pain Depression GERD Hospital Course: This is an 83 year old female with PMH of COPD, depression, GERD who was admitted with acute on chronic respiratory failure with hypoxia. There was concern for aspiration and she was started on ceftriaxone and azithromycin on admission for presumed aspiration pneumonia as well as steroids for possible COPD exacerbation. The following day she improved to baseline with no need for O2 at rest, but continued hypoxia with ambulation. Speech recommended barium swallow which did show aspiration. She was recommended for small sips of thin liquids only, with chin tuck and additional behavioral modifications. Patient does not answer phone calls from unknown numbers so previous attempts at home health had been unsuccessful, but alternative contacts were given to help establish home health care this time. After barium swallow, patient was discharged home with another couple of days of augmentin for her presumed aspiration pneumonia and steroids for possible COPD exacerbation. Patient also reported significant frustration with new increased support needs for her ongoing medical care. I would highly recommend palliative care consultation as an outpatient for ongoing optimization of health care and medication management in the setting of aspiration, respiratory disease and increased needs for help at home. Time Spent with Patient Time spent: Greater than 30 minutes Exam Vital Signs (past 8 hours): - 03/25/24 08:00 03/25/24 08:05 Temperature 97.7 F Pulse Rate 82 Respiratory Rate 20 Blood Pressure 153/77 H Pulse Oximetry 96 Oxygen Delivery Method Nasal Cannula Oxygen Flow Rate 2 Fraction of Inspired Oxygen 28 SaO2/FiO2 Ratio 328 Oxygen Delivery Method Nasal Cannula Oxygen Flow Rate 2 Narrative Exam Narrative: General:? Patient is thin appearing, in no distress at this time. Chronically coughing HEENT:? Normocephalic, atraumatic, extraocular muscles intact, oral pharynx is clear and mucous membranes are moist. Neck: supple and symmetric, trachea is midline, no cervical adenopathy. Negative for JVD Chest:? Normal AP diameter and contour without kyphoscoliosis, no tachypnea, equal chest rise bilaterally. Lungs:? CTA b/l no wheezing rhonchi or rales. Cardio:?RRR no m/r/g. Abdomen: S NT ND. Musculoskeletal:? Muscle strength and tone are equal within normal limits, no deformity. Extremities: No edema or joint effusions. No cyanosis or clubbing. Skin:? Pale,? Warm to touch,dry and intact without rashes, ulcerations or petechiae.? Neuro:? Alert and orientated x3,? sensation to touch intact in all extremities, no gross deficits noted of cranial nerves. Psych:? Patient has a well-kept appearance, appropriate affect, mental status attitude thought context and judgment are appropriate for age. Objective Labs 03/24/24 04:40 03/24/24 04:40 [facility] Medical History Spondyloarthritis Smoker unmotivated to quit Hyperlipidemia COPD (chronic obstructive pulmonary disease) Depression GERD without esophagitis Surgical History S/P tonsillectomy S/P cholecystectomy S/P appendectomy Social History household members: family Smoking Status: Former smoker alcohol intake: current Discharge Plan Discharge Plan Patient Disposition: Home Provider Discharge Comment: You were admitted to the hospital with shortness of breath. Speech evaluations showed that you are aspirating when swallowing. Please follow their techniques and recommendations for reducing aspiration risk. It may be cheaper to purchase a portable oxygen concentrator off of [employer], [employer], etc rather than going through insurance / medicare. One company that has affordable devices is [employer], but you can find similar devices elsewhere. Discharge orders & Medications Prescriptions: New prednisone 20 mg tablet 40 mg PO DAILY 3 Days Qty: 6 0RF amoxicillin-pot clavulanate 875-125 mg tablet 1 tab PO BID 3 Days Qty: 6 0RF Continued FiberCon 625 MG tablet 2 tab PO BID Qty: 0 (DME) Disabled Parking Permit See Rx Instructions .ROUTE .MEDSUPPLY Qty: 1 0RF Rx Instructions: Valid for 5 years omeprazole 20 mg capsule,delayed release(DR/EC) 20 mg PO DAILY Qty: 30 5RF budesonide-formoterol 80-4.5 mcg/actuation HFA aerosol inhaler 2 puff inhalation BID Qty: 10.2 0RF rosuvastatin 5 mg tablet 5 mg PO DAILY Qty: 90 0RF fluoxetine 40 mg capsule 40 mg PO DAILY Qty: 90 1RF albuterol sulfate [Ventolin HFA] 90 mcg/actuation HFA aerosol inhaler 2 puff inhalation Q2HP PRN (Reason: breathing) Qty: 8.5 3RF Spiriva with HandiHaler 18 mcg capsule, w/inhalation device 1 cap inhalation QDAY Qty: 90 1RF aspirin [Adult Aspirin Regimen] 81 mg tablet,delayed release (DR/EC) 81 mg PO DAILY Qty: 30 5RF gabapentin 300 mg capsule 300 mg PO BID Qty: 180 3RF prednisone 20 mg tablet 40 mg PO DAILY Qty: 10 0RF Follow up/Referrals: Cornelia Higginbotham DO [Primary Care Provider] - Diet/Activity/Treatments Diet: Diet as Tolerated Diet comment: Small sips thin liquids, chin tuck technique. Activity: As tolerate no restrictions Oxygen: As needed only to maintain O2 89-96%. Visit Report/Discharge Packet Instructions: Chronic Obstructive Pulmonary Disease, Aspiration Pneumonia, DI for Chronic Obstructive Pulmonary Disease, DI for Aspiration Pneumonia Stand Alone Forms: Patient Portal/API, Stroke Signs & Symptoms Discharge Data Primary Care Provider: Cornelia Higginbotham Attending Provider: Gion Astorga Admit Date/Time: 03/24/24 00:16 Quality VTE Deep Vein Thrombosis/Pulmonary Embolism Present on Admission: No
--- NOTE | 2024-03-25 12:40 | PC.NURSE ---
Day shift: Pt got hernandez back from the safe. See Pt's chart for repossession of valuables. Money was counted and paperwork signed per protocol.
--- NOTE | 2024-03-25 12:51 | CM.DPC ---
DCP Continued Reviewed EMR and team rounds for pt?s medical status. Pt had MBS scheduled this morning at 1030. Per hospitalist, pt to discharge after MBS with daughter, home health to follow. No discharge needs identified at this time. Plan: Discharge orders in, 03.25. Pt to discharge home with daughters to transport, [facility] to follow for RN, PT, ST. CM Team will continue to follow for any discharge needs that may arise. GISELL Adan
--- NOTE | 2024-03-25 13:09 | PC.NURSE ---
Day shift: Paperwork signed and all questions answered. Daughter in room for teachings. Pt has all personal belongings. New MD scripts sent to Pt's pharmacy. Left unit via WC at approx 1305. Taken by JUSTO De Luna. Pt's Daughter is driving her home to [address] here in [place]. Pt did not want to use any O2 for the ride home. Pt stated I'm so happy to leave here today.
--- NOTE | 2024-03-25 13:37 | ST.SWALLOW ---
Visit Care Team Role Provider Type Cornelia Higginbotham DO Primary Care Provider Physician Specialty: Family Practice Address: [address] [place] [address], [address], [place], [address] Email: [email or web address] Lizama Family Provider Non-Staff Specialty: Medical Address: [address] [place] [address], [address], [place], [address] Email: Merary Haynes MD Emergency Provider Physician Referring Provider Specialty: Emergency Medicine Address: [address] [place] [address], [id number] Email: [email or web address] [email or web address] Provider Physician Attending Provider Specialty: Internal Medicine Address: [address] [place] [address], [facility] Email: [email or web address] Modified Barium Swallow Study DISABILITY COUNSELOR Modified Barium Swallow Study Start: 03/25/24 12:31 Freq: Status: Discharge Protocol: Document 03/25/24 12:32 CG (Rec: 03/25/24 12:33 CG [id number]) Modified Barium Swallow Study Total Time Visit Start Time 10:27 Visit Stop Time 10:47 Total Visit Minutes [address] Franco Reason for Referral suspected aspiration PNA Patient Information Patient History Per H&P: 83 y/o heavy smoker, up until a month ago, and Hx of oxygen-dependent COPD - since last month. She was hospitalized with COPD exacerbation, hypoxemic, and was discharged home on oxygen. She was using it, together with Symbicort, Spiriva and albuterol but still developed congestion, productive cough and severe shortness of breath . ED workup showing RLL infiltrate, leukocytosis. Admitted with PNA and COPD exacerbation. Additionally, per records, pt has PMHx significant for GERD without esophagitis, COPD, lifelong smoker (unmotivated to quit), hyperlipidemia, and spondyloarthritis. Pt seen yesterday by this verse writer and demonstrated intermittent cough. MBSS to assess for aspiration vs chronic cough. Lateral View Textures Administered Trials Presented Thin Liquid via Spoon (IDDSI 0 ),Mildly Thick Liquid via Spoon (IDDSI 2),Mildly Thick Liquid via Cup (IDDSI 2), Extremely Thick Liquid via Spoon (IDDSI 4),Regular (IDDSI 7) Barium Tablet Yes The IDDSI Framework Protocol: IDDSI.1 Oral Impairment Source: The Modified Barium Swallow Impairment Profile (MBSImP??) Lip Closure Interlabial escape; no progression to anterior lip Tongue Control During Bolus Hold Posterior escape of less than half of bolus Bolus Transport/Lingual Motion Slowed tongue motion Oral Residue Residue collection on oral structures Location Palate,Tongue Initiation of Pharyngeal Swallow Bolus head at pyriforms Pharyngeal Impairment Source: The Modified Barium Swallow Impairment Profile (MBSImP??) Soft Palate Elevation No bolus between soft palate & pharyngeal wall Laryngeal Elevation Min.sup.move. thyroid cart. w/ min.approx.arytenoids to epiglot.petiole Anterior Hyoid Excursion Partial anterior movement Epiglottic Movement Partial inversion Laryngeal Vestibular Closure Incomplete; narrow column air/ contrast in laryngeal vestibule Pharyngeal Stripping Wave Present - diminished Pharyngoesophageal Segment Opening Partial distention/partial duration; partial obstruction of flow Tongue Base Retraction Wide column of contrast/air betwn tongue base & post. pharyngeal wall Pharyngeal Residue Collection of residue within/ on pharyngeal structures A/P View The IDDSI Framework Protocol: IDDSI.1 A/P View Observations Esophageal Clearance Upright Position Complete clearance; esophageal coating Esophageal Function WFL Clinical Impressions Findings MBSS can be summarized as follows: -evidence of aspiration with thin liquids (silent aspiration) -airway protection was increased with chin tuck -no aspiration with mildly thick liquids (IDDSI 2), but there is still deep penetration into the laryngeal vestibule -penetration into laryngeal vestibule decreased with chin tuck for mildly thick liquids -generally, swallow integrity was increased with chin tuck across consistencies -did not trial cup sip thin due to safety concerns -swallow integrity increased with small bolus size (tsp) -there is evidence of premature spillage from oral cavity to pharynx -diffuse pharyngeal residue across consistencies, particularly in the vallecula -mastication not observed, but solids appeared WFL after the swallow aside from mild- moderate vallecular residue -significant pharyngeal residue after swallows of large boluses increases risk of aspiration. Secondary swallow required to clear pharyngeal residue Rehabilitation Potential Fair Patient Appropriate for Therapy Yes Recommendations Diet Medication Recommendation As Tolerated Aspiration Precautions Recommended Precautions Upright at 90 Degrees,Small Bites/Sips,Chin Tuck Treatment Plan Therapy Recommendations Outpatient Speech Therapy Therapy Strategy Recommendations Sitting Upright (90 deg),Chin Tuck,Small Bites and Sips Placement Recommendation After Discharge Home with Home Health Additional Recommendations/Comments Pt remains high aspiration risk. Monitor closely. Recommend follow up MBSS in near future as pt strength increases.
== END 2024-03-25 13:13 | disposition home or self-care (01) ==
LOC: ED 23:49 → AC 03-24 00:59
PROVIDERS: Admitting Provider Internal Medicine; Emergency Provider Emergency Medicine; Family Provider Nurse Practitioner Family; PCP Family Medicine; Referring Provider Emergency Medicine; Visit Provider Internal Medicine
DX: J96.21 Acute and chronic respiratory failure with hypoxia (principal); J44.1 Chronic obstructive pulmonary disease with (acute) exacerbation; K21.9 Gastro-esophageal reflux disease without esophagitis; F32.A Depression, unspecified; Z11.52 Encounter for screening for COVID-19; Z99.81 Dependence on supplemental oxygen; Z87.891 Personal history of nicotine dependence
CPT/HCPCS: 36415; 51701; 71045; 74230; 80048; 80053; 81003; 83605; 83880; 84484; 85007; 85025; 85610; 87040; 87633; 92526; 92610; 92611; 93005; 94762; 96365; 96366; 96367; 96372; 96375; 96376; 99285; G0378; J0696; J1650; J2919; J7613

== ENCOUNTER → 2024-10-20 16:57 | Outpatient (ROUT) | payer MEDICARE, SELFPAY ==
[2024-03-24 01:12] VITALS: BMI 17.9
[2024-10-20 17:13] LABS: Add Manual Diff / Slide Review NO; Basophils Absolute Auto 0 /uL (0-100); Basophils Percent Auto 0.2 % (0-2); Eosinophils Absolute Auto 100 /uL (0-450); Eosinophils Percent Auto 1.4 % (2-4); Hematocrit 43.5 % (36-46); Hemoglobin 14.4 g/dL (12.0-16.0); Lymphocytes Absolute Auto 2100 /uL (1100-4500); Lymphocytes Percent Auto 21.7 % (25-40); Mean Corpuscular HGB Conc 33.1 % (30-36); Mean Corpuscular Hemoglobin 31.1 PG (26-34); Monocytes Absolute Auto 800 /uL (0-900); Monocytes Percent Auto 7.9 % (3-14); Neutrophils Absolute Auto 6800 /uL (1500-7000); Neutrophils Percent Auto 68.8 % (50-75); Platelet Count 254 X10^3/uL (150-400); Red Blood Cell Count 4.63 X10^6/uL (4.0-5.2); Red Cell Distribution Width 13.7 % (11.6-14.8); White Blood Cell Count 9.9 X10^3/uL (4.5-11.0)
[2024-10-20 17:21] LABS: Appearance Urine UA CLEAR; Bilirubin Urine UA NEGATIVE (NEGATIVE); Color Urine UA YELLOW; Glucose Urine UA NEGATIVE (Negative); Ketones Urine UA NEGATIVE (NEGATIVE); Leukocyte Esterase Urine UA 1+ (NEGATIVE); Nitrite Urine UA NEGATIVE (Negative); Occult Blood Urine UA NEGATIVE (Negative); Protein Urine UA NEGATIVE (Negative); Specific Gravity Urine UA 1.025 (1.000-1.035); Urobilinogen Urine UA 0.2 E.U./dL (0.2)
[2024-10-20 17:24] LABS: Alanine Aminotransferase 27 IU/L (<35); Albumin 4.5 g/dL (3.5-5.0); Albumin Globulin Ratio 1.7 (1.0-2.8); Alkaline Phosphatase 84 U/L (38-126); Aspartate Aminotransferase 38 IU/L (14-36); BUN Creatinine Ratio 36.2 (6-22); Bilirubin Total 0.4 mg/dL (0.2-1.3); Blood Urea Nitrogen 21 mg/dL (7-17); Calcium 9.6 mg/dL (8.4-10.2); Carbon Dioxide 26 mmol/L (22-32); Chloride 104 mmol/L (98-107); Cholesterol 178 mg/dL (140-199); Estimated Glomerular Filt Rate > 60 mL/min (>60); Globulin 2.7 g/dL (1.7-4.1); Glucose 104 mg/dL (80-110); HDL Cholesterol 97 mg/dL (40-60); HEMOLYSIS < 15 (0-50); LDL Cholesterol Calculated 58 mg/dL (<100); Potassium 3.9 mmol/L (3.4-5.1); Sodium 137 mmol/L (137-145); Total Protein 7.2 g/dL (6.3-8.2); Triglycerides 113 mg/dL (35-150)
[2024-10-20 17:35] LABS: Bacteria Urine Few (2-10); Culture Indicated Urine Specimen Cultured; RBC Urine 1-5/HPF (0-5/HPF); Squamous Epithelial Cell Urine 1-5 /HPF (0-5/HPF); Urine Volume 10mL (spun); WBC Urine 10-30/HPF (0-5/HPF)
[2024-10-20 17:42] LABS: Free T3, Triiodothyronine Free 3.26 pg/mL (2.77-5.27); Triiodothryronine T3 Uptake 28.2 % (23.5-40.5)
[2024-10-20 17:55] LABS: TSH w/ Reflex to FT4 3.79 uIU/mL (0.47-4.68); Thyroid Stimulating Hormone 3.79 uIU/mL (0.47-4.68)
== END ==
PROVIDERS: PCP Family Medicine; Visit Provider Nurse Practitioner
DX: Z13.89 Encounter for screening for other disorder (principal)
CPT/HCPCS: 80053; 80061; 81001; 84443; 84479; 84481; 85025; 87086

== ENCOUNTER → 2024-12-03 09:01 | Outpatient (CLI) | payer MEDICARE, SELFPAY ==
[2024-03-24 01:12] VITALS: BMI 17.9
--- NOTE | 2024-12-03 09:05 | DI.RAD.S_ITS ---
PROCEDURE: XR CHEST 2V INDICATIONS: f/u PNA TECHNIQUE: 2 views of the chest were acquired. COMPARISON: [facility], , XR CHEST 1V, 03/23/2024, 21:14. [facility], CR, XR CHEST 1V, 02/15/2024, 20:23. FINDINGS: Surgical changes and devices: None. Lungs and pleura: Lungs are clear. No pleural effusions or pneumothorax. Emphysema. Reticulation in the lung bases is unchanged from prior. Scarring of the lung bases with blunting of the costophrenic angles. Mediastinum: Mediastinal contours are normal. Heart size is normal. Bones and chest wall: No suspicious bony abnormalities. Soft tissues appear unremarkable. IMPRESSION: No acute cardiopulmonary abnormality is seen. Bibasilar reticulation, probably senescent changes. Emphysema. Dictated by: Robert Kebede M.D. on 12/03/2024 at 11:09 Approved by: Robert Kebede M.D. on 12/03/2024 at 11:10
== END ==
PROVIDERS: PCP Family Medicine; Referring Provider Nurse Practitioner; Visit Provider Nurse Practitioner
DX: J43.9 Emphysema, unspecified (principal); R05.9 Cough, unspecified; J18.9 Pneumonia, unspecified organism; R06.02 Shortness of breath; R09.02 Hypoxemia
CPT/HCPCS: 71046

== ENCOUNTER → 2025-01-23 17:19 | Outpatient (CLI) | payer MEDICARE, SELFPAY ==
[2024-03-24 01:12] VITALS: BMI 17.9
[2025-01-23 17:32] LABS: Appearance Urine UA CLEAR; Bilirubin Urine UA NEGATIVE (NEGATIVE); Color Urine UA YELLOW; Glucose Urine UA NEGATIVE (Negative); Ketones Urine UA NEGATIVE (NEGATIVE); Leukocyte Esterase Urine UA NEGATIVE (NEGATIVE); Nitrite Urine UA NEGATIVE (Negative); Occult Blood Urine UA NEGATIVE (Negative); Protein Urine UA NEGATIVE (Negative); Urobilinogen Urine UA 0.2 E.U./dL (0.2)
[2025-01-23 17:35] LABS: pH Urine UA 6.5 (4.5-8.0)
[2025-01-23 17:53] LABS: Bacteria Urine Occasional (0-1); Culture Indicated Urine Cult Not Indicated; RBC Urine 0-1/HPF (0-5/HPF); Squamous Epithelial Cell Urine 0-1 /HPF (0-5/HPF); Urine Volume 10mL (spun); WBC Urine 0-1/HPF (0-5/HPF)
== END ==
PROVIDERS: PCP Nurse Practitioner; Referring Provider Nurse Practitioner; Visit Provider Nurse Practitioner
DX: R30.0 Dysuria (principal)
CPT/HCPCS: 81001

== ENCOUNTER 2025-04-20 05:45 | Emergency (ER) | payer MEDICARE, SELFPAY ==
[2024-03-24 01:12] VITALS: BMI 17.9
[2025-04-20] VITALS (14 sets, daily range): BP systolic 146–178; BP diastolic 64–93; PULSE 65–76; RESP 15–19; TEMP 36.6; O2SAT 91–99; BMI 21.5
--- NOTE | 2025-04-20 05:52 | DI.CT.S_ITS ---
PROCEDURE: CT CERVICAL SPINE WO CON INDICATIONS: fall TECHNIQUE: Noncontrast 3 mm thick sections acquired from the skull base to the T4 level. Sagittal and coronal reformats were then constructed. For radiation dose reduction, the following was used: automated exposure control, adjustment of mA and/or kV according to patient size. COMPARISON: [facility], CT, CT CERVICAL SPINE WO CON, 02/16/2024, 7:18. FINDINGS: Image quality: Excellent. Bones: No fractures or dislocations. Severe diffuse cervical spondylosis. Multilevel prominent bilateral facet arthropathy. Multilevel uncovertebral joint hypertrophy. Multilevel foraminal narrowing. Visualized superior ribs are intact. Soft tissues: Prevertebral soft tissues are normal in thickness. No paravertebral hematomas. No apical pneumothoraces. Advanced emphysematous change. IMPRESSION: No displaced fracture or traumatic subluxation. Severe cervical spondylosis. Advanced biapical emphysematous change. Comment: Final report is concordant with preliminary interpretation provided by [facility]. Dictated by: Williams Castillo M.D. on 04/20/2025 at 7:10 Approved by: Williams Castillo M.D. on 04/20/2025 at 7:12
--- NOTE | 2025-04-20 05:52 | DI.CT.S_ITS ---
PROCEDURE: CT HEAD/BRAIN WO CON INDICATIONS: fall TECHNIQUE: Noncontrast 4.5 mm thick angled axial sections acquired from the foramen magnum to the vertex, with coronal and sagittal reformats. For radiation dose reduction, the following was used: automated exposure control, adjustment of mA and/or kV according to patient size. COMPARISON: [facility], CT, CT HEAD/BRAIN WO CON, 02/16/2024, 7:18. FINDINGS: Image quality: Diagnostic. CSF spaces: Basal cisterns are patent. No extra-axial fluid collections. The ventricles are symmetric in size and shape. Brain: No intracranial bleeds or mass effect. There is cerebral volume loss, with resultant ventricular and sulcal prominence. There are periventricular and deep white matter chronic small vessel ischemic changes. There is intracranial internal carotid artery atherosclerosis. Skull and face: Right high parietal scalp otoniel. Calvarium and visualized facial bones appear intact, without suspicious lesions. Sinuses: Visualized sinuses and mastoids are clear. IMPRESSION: No evidence acute intracranial process. Comment: Final report is concordant with preliminary interpretation provided by [facility]. Dictated by: Williams Castillo M.D. on 04/20/2025 at 7:08 Approved by: Williams Castillo M.D. on 04/20/2025 at 7:10
--- NOTE | 2025-04-20 05:53 | DI.RAD.S_ITS ---
PROCEDURE: XR CHEST 1V INDICATIONS: GLF, hx of COPD, poss Syncopal event TECHNIQUE: One view of the chest was acquired. COMPARISON: [facility], CR, XR CHEST 2V, 12/03/2024, 9:10. [facility], CR, XR CHEST 1V, 03/23/2024, 21:14. FINDINGS AND IMPRESSION: Emphysematous changes. No new consolidation or pleural effusion on this single view study. Similar basal reticulation possibly scarring/mild fibrosis. Unchanged mediastinal contours. Normal heart size. Degenerative osseous changes. Dictated by: Cam Vaughan M.D. on 04/20/2025 at 7:27 Approved by: Cam Vaughan M.D. on 04/20/2025 at 7:29
--- NOTE | 2025-04-20 06:01 | EKG_ITS ---
[address] [address] Test Date: 2025-04-20 Pat Name: Dena Stock Department: Room: Gender: Female Underground Supervisor: NEELIMA : 1940 Requested By: Order Number: [id number] Reading MD: Simone Singletary Measurements Intervals [place] Rate: 73 P: 71 MD: 222 QRS: 27 QRSD: 68 T: 76 QT: 400 QTc: 440 Interpretive Statements Sinus rhythm with 1st degree AV block Low voltage QRS Septal infarct , age undetermined Electronically Signed On 04-21-2025 18:29:19 PDT by Simone Singletary
[2025-04-20 06:13] LABS: Add Manual Diff / Slide Review NO; Hematocrit 39.6 % (36-46); Hemoglobin 13.1 g/dL (12.0-16.0); Lymphocytes Absolute Auto 1800 /uL (1100-4500); Mean Corpuscular HGB Conc 33.1 % (30-36); Mean Corpuscular Hemoglobin 30.8 PG (26-34); Mean Corpuscular Volume 93.2 fL (80-100); Platelet Count 178 X10^3/uL (150-400)
[2025-04-20 06:19] LABS: INR 0.9 (0.9-1.3); Prothrombin Time 10.5 SECONDS (9.4-12.5)
[2025-04-20 06:22] LABS: PTT Partial Thromboplastin Tim 28 SECONDS (25.1-36.5)
[2025-04-20 06:25] LABS: Alanine Aminotransferase 20 IU/L (<35); Albumin 4.2 g/dL (3.5-5.0); Albumin Globulin Ratio 1.7 (1.0-2.8); Alkaline Phosphatase 78 U/L (38-126); Blood Urea Nitrogen 22 mg/dL (7-17); Calcium 9.3 mg/dL (8.4-10.2); Carbon Dioxide 30 mmol/L (22-32); Chloride 103 mmol/L (98-107); Estimated Glomerular Filt Rate > 60 mL/min (>60); Globulin 2.5 g/dL (1.7-4.1); Glucose 108 mg/dL (70-99); HEMOLYSIS 20 (0-50); Potassium 3.8 mmol/L (3.4-5.1); Sodium 139 mmol/L (137-145); Total Protein 6.7 g/dL (6.3-8.2)
[2025-04-20 06:26] LABS: Acetaminophen < 10 ug/mL (10-30); Creatine Kinase 48 U/L (30-135); Magnesium 1.9 mg/dL (1.6-2.3); Salicylate < 1.0 mg/dL (<20)
[2025-04-20] MEDS: LIDOCAINE 1% W/EPI 10ML SUBCUT (06:34)
[2025-04-20 06:37] LABS: Troponin I < 0.012 ng/mL (0.01-0.034)
--- NOTE | 2025-04-20 06:53 | ED_ITS ---
HPI - Fall <Nick Islas MD - Last Filed: 04/20/25 06:58> General Chief Complaint: Fall Stated Complaint: fall, head lac Time Seen by Provider: 04/20/25 05:52 Source: patient and EMS Mode of arrival: EMS Related Data Home Medications ?Medication ?Instructions ?Recorded ?Confirmed calcium polycarbophil 625 mg 2 tab PO BID ##0 10/27/16 03/24/24 tablet (FiberCon) Previous Rx's ?Medication ?Instructions ?Recorded aspirin 81 mg tablet,delayed 81 mg PO DAILY #30 tabs 0 04/01/22 release (Adult Aspirin Regimen) Disabled Parking Permit #1 ea 08/14/23 gabapentin 300 mg capsule 300 mg PO BID #180 caps 01/04 01/26 tiotropium bromide 18 mcg capsule 1 cap inhalation QDA Y #90 ea 03/04/24 with inhalation device (Spiriva with HandiHaler) omeprazole 20 mg capsule,delayed 20 mg PO DAILY #30 ca ps 04/18/24 release buspirone 5 mg tablet 5 mg PO BID PRN anxiety #30 tabs 05/16/24 budesonide-formoterol HFA 80 2 puff inhalation BID #30 .9 grams 06/29/24 mcg-4.5 mcg/actuation aerosol inhaler albuterol sulfate 90 mcg/actuation 2 puff inhalation Q 2HP PRN 09/14/24 aerosol inhaler (Ventolin HFA) breathing #8.5 grams rosuvastatin 5 mg tablet 5 mg PO DAILY #90 tabs 09/15 fluoxetine 40 mg capsule 40 mg PO DAILY #90 caps 01/03 01/27 Allergies Allergy/AdvReac Type Severity Reaction Status Date / Time No Known Drug Allergies Allergy Verified 04/20/25 06:00 <Presley Gonzalez MD - Last Filed: 05/03/25 09:53> History of Present Illness HPI Narrative: I spoke with patient and granddaughter at bedside. Granddaughter as a THERAPEUTIC RECREATION DIRECTOR that lives upstairs apartment from patient. Granddaughter states that patient called her right away that she had injured herself and there was blood on the ground. Patient adamantly states that she got up and got disoriented/groggy and sat down on the floor and her head hit the side board of the bed rail. There was no no no loss of consciousness. There was no no syncope. She denies denies any prevent headache chest pain abdominal and back pain. Patient and grandmother state adamantly that this is not uncommon for her to get disoriented when she gets up, she easily falls asleep during the daytime and nighttime. This has been ongoing. Dr. Serina faulkner sees her at home, home visits. Primary care is aware of these episodes of falling asleep easily. Patient states she had gotten up this early to go get coffee for the day. She lives independently for the most part. She is on baseline 3 L nasal cannula oxygen. This is not uncommon. Patient and granddaughter states that her oxygen was on her when the injury occurred. Denies any recent illness fever chills cough cold congestion black or bloody stools. Granddaughter states she has not been drinking very much fluids or water. No recent exertional chest pain dyspnea. No facial droop slurred speech or headaches recently. Review of Systems <Presley Gonzalez MD - Last Filed: 05/03/25 09:53> Review of Systems Narrative: GENERAL: Negative chills, fatigue, malaise, fever, sweats. HEENT: Negative sinus pain, ear pain, sore throat RESPIRATORY: Negative dyspnea, cough CARDIOVASCULAR: Negative chest pain, palpitations GASTROINTESTINAL: Negative vomiting, nausea, abdominal pain : Negative dysuria, frequency, hematuria MUSCULOSKELETAL: Negative muscle or bony pain SKIN: Negative rash, skin lesions NEUROLOGIC: Negative weakness, numbness ROS Unobtainable: All systems reviewed & are unremarkable except as noted in HPI and below Patient History <Nick Islas MD - Last Filed: 04/20/25 06:58> Medical History Spondyloarthritis Smoker unmotivated to quit Hyperlipidemia COPD (chronic obstructive pulmonary disease) Depression GERD without esophagitis Surgical History S/P tonsillectomy S/P cholecystectomy S/P appendectomy Social History household members: family alcohol intake: current tobacco type: cigarettes alcohol intake frequency: holidays/special occasions only Exam <Nick Islas MD - Last Filed: 04/20/25 06:58> Initial Vital Signs Initial Vital Signs: Vital Signs Pulse Oximetry 91 04/20/25 05:48 Const General: No acute distress, No diaphoretic and ill appearing (chronically) [facility] Head: normocephalic, No Vu's sign, laceration (2cm lac on top occipital scalp) and No raccoon eyes Ears: TM's normal bilaterally Face and sinus: no lacerations Mouth: oropharynx normal and moist mucous membranes Eyes General: Yes appearance normal, both eyes and all related structures Pupils: PERRL EOM: EOM intact bilaterally Neck Neck: supple and No tender Carotids: no bruits Resp Effort & Inspection: normal respiratory effort (on NC O2, at baseline 3L/min) Auscultation: other (mildly coarse breath sounds globally. Pt states breathing is at baseline) Cardio Rate: regular rate Rhythm: regular rhythm Heart Sounds: S1 normal and S2 normal GI Palpation: soft and No tender General: No CVA tenderness Back/Spine/Pelvis Thoracic/Lumbar Spine: No thoracic spinal tenderness and No lumbar spinal tenderness Neuro General: patient alert, patient awake, patient oriented x3, moves all extremities and CN's II-XI intact bilaterally <Presley Gonzalez MD - Last Filed: 05/03/25 09:53> Initial Vital Signs Initial Vital Signs: Vital Signs Pulse Oximetry 91 04/20/25 05:48 Course <Nick Islas MD - Last Filed: 04/20/25 06:58> Orders Ordered: Discontinued Medications Bacitracin (Bacitracin Oint 0.9 Gm Pckt) 1 applic TOP NOW ONE Stop: 04/20/25 07:14 Last Admin: 04/20/25 07:17 Dose: 1 applic Documented By: KW Diphtheria/Tetanus/Acell Pertussis (Tet,Diph,Pertuss(Acell),Vac/Pf 0.5 Ml Syringe) 0.5 ml IM .ONCE ONE Stop: 04/20/25 05:53 Last Admin: 04/20/25 06:37 Dose: Not Given Documented By: AB Sodium Chloride (Normal Saline 0.9%) 500 mls @ 1,000 mls/hr IV BOLUS ONE Stop: 04/20/25 07:50 Last Admin: 04/20/25 07:41 Dose: Not Given Documented By: MPO Sodium Chloride (Normal Saline 0.9%) 1,000 mls @ 1,000 mls/hr IV BOLUS ONE Stop: 04/20/25 08:24 Last Infusion: 04/20/25 08:58 Dose: Infused Documented By: Admin: 04/20/25 07:52 Dose: 1,000 mls/hr Documented By: ANNE Lidocaine/Epinephrine (Lidocaine 1% W/Epi 10ml) 1 ml SUBCUT NOW ONE Stop: 04/20/25 05:53 Last Admin: 04/20/25 06:34 Dose: 1 ml Documented By: AB Vital Signs Vital signs: Vital Signs - 8 hr 04/20/25 05:48 04/20/25 05:49 04/20/25 05:49 Temperature Pulse Rate 75 Respiratory Rate Blood Pressure 159/75 H Pulse Oximetry 91 98 Oxygen Delivery Method Oxygen Flow Rate 04/20/25 06:00 04/20/25 06:00 04/20/25 06:01 Temperature 98 F Pulse Rate 72 74 Respiratory Rate 17 Blood Pressure 149/75 H 149/75 H Pulse Oximetry 99 98 Oxygen Delivery Method Nasal Cannula Oxygen Flow Rate 3 04/20/25 06:30 04/20/25 06:31 04/20/25 06:31 Temperature Pulse Rate 76 Respiratory Rate Blood Pressure 176/72 H Pulse Oximetry 92 96 Oxygen Delivery Method Oxygen Flow Rate 04/20/25 07:00 04/20/25 07:00 04/20/25 07:30 Temperature 97.9 F Pulse Rate 71 Respiratory Rate 17 Blood Pressure 178/75 H 149/64 H Pulse Oximetry 98 Oxygen Delivery Method Nasal Cannula Nasal Cannula Oxygen Flow Rate 3 3 04/20/25 07:30 04/20/25 07:45 04/20/25 07:45 Temperature Pulse Rate 71 69 Respiratory Rate 19 18 Blood Pressure 149/66 H Pulse Oximetry 98 97 Oxygen Delivery Method Oxygen Flow Rate 04/20/25 08:00 04/20/25 08:00 04/20/25 08:30 Temperature Pulse Rate 65 Respiratory Rate 19 Blood Pressure 146/93 H 154/67 H Pulse Oximetry 98 Oxygen Delivery Method Oxygen Flow Rate 04/20/25 08:30 Temperature Pulse Rate 65 Respiratory Rate 15 Blood Pressure Pulse Oximetry 97 Oxygen Delivery Method Oxygen Flow Rate <Presley Gonzalez MD - Last Filed: 05/03/25 09:53> Orders Ordered: Discontinued Medications Bacitracin (Bacitracin Oint 0.9 Gm Pckt) 1 applic TOP NOW ONE Stop: 04/20/25 07:14 Last Admin: 04/20/25 07:17 Dose: 1 applic Documented By: MARIO Diphtheria/Tetanus/Acell Pertussis (Tet,Diph,Pertuss(Acell),Vac/Pf 0.5 Ml Syringe) 0.5 ml IM .ONCE ONE Stop: 04/20/25 05:53 Last Admin: 04/20/25 06:37 Dose: Not Given Documented By: AB Sodium Chloride (Normal Saline 0.9%) 500 mls @ 1,000 mls/hr IV BOLUS ONE Stop: 04/20/25 07:50 Last Admin: 04/20/25 07:41 Dose: Not Given Documented By: ANNE Sodium Chloride (Normal Saline 0.9%) 1,000 mls @ 1,000 mls/hr IV BOLUS ONE Stop: 04/20/25 08:24 Last Infusion: 04/20/25 08:58 Dose: Infused Documented By: Admin: 04/20/25 07:52 Dose: 1,000 mls/hr Documented By: ANNE Lidocaine/Epinephrine (Lidocaine 1% W/Epi 10ml) 1 ml SUBCUT NOW ONE Stop: 04/20/25 05:53 Last Admin: 04/20/25 06:34 Dose: 1 ml Documented By: Vital Signs Vital signs: Vital Signs - 8 hr 04/20/25 05:48 04/20/25 05:49 04/20/25 05:49 Temperature Pulse Rate 75 Respiratory Rate Blood Pressure 159/75 H Pulse Oximetry 91 98 Oxygen Delivery Method Oxygen Flow Rate 04/20/25 06:00 04/20/25 06:00 04/20/25 06:01 Temperature 98 F Pulse Rate 72 74 Respiratory Rate 17 Blood Pressure 149/75 H 149/75 H Pulse Oximetry 99 98 Oxygen Delivery Method Nasal Cannula Oxygen Flow Rate 3 04/20/25 06:30 04/20/25 06:31 04/20/25 06:31 Temperature Pulse Rate 76 Respiratory Rate Blood Pressure 176/72 H Pulse Oximetry 92 96 Oxygen Delivery Method Oxygen Flow Rate 04/20/25 07:00 04/20/25 07:00 04/20/25 07:30 Temperature 97.9 F Pulse Rate 71 Respiratory Rate 17 Blood Pressure 178/75 H 149/64 H Pulse Oximetry 98 Oxygen Delivery Method Nasal Cannula Nasal Cannula Oxygen Flow Rate 3 3 04/20/25 07:30 04/20/25 07:45 04/20/25 07:45 Temperature Pulse Rate 71 69 Respiratory Rate 19 18 Blood Pressure 149/66 H Pulse Oximetry 98 97 Oxygen Delivery Method Oxygen Flow Rate 04/20/25 08:00 04/20/25 08:00 04/20/25 08:30 Temperature Pulse Rate 65 Respiratory Rate 19 Blood Pressure 146/93 H 154/67 H Pulse Oximetry 98 Oxygen Delivery Method Oxygen Flow Rate 04/20/25 08:30 Temperature Pulse Rate 65 Respiratory Rate 15 Blood Pressure Pulse Oximetry 97 Oxygen Delivery Method Oxygen Flow Rate MDM - Fall <Nick Islas MD - Last Filed: 04/20/25 06:58> Lab Data 04/20/25 06:00 04/20/25 06:00 Labs: Lab Results 04/20/25 04/20/25 04/20/25 Range/Units 06:00 06:35 08:21 WBC 6.1 (4.5-11.0) X10^3/uL RBC 4.25 (4.0-5.2) X10^6/uL Hgb 13.1 (12.0-16.0) g/dL Hct 39.6 (36-46) % MCV 93.2 (80-100) fL MCH 30.8 (26-34) PG MCHC 33.1 (30-36) % RDW 13.9 (11.6-14.8) % Plt Count 178 (150-400) X10^3/uL Neut % (Auto) 56.3 (50-75) % Lymph % (Auto) 28.8 (25-40) % [place] % (Auto) 11.0 (3-14) % Eos % (Auto) 3.5 (2-4) % Baso % (Auto) 0.4 (0-2) % Neut # (Auto) 3400 (5587-7795) /uL Lymph # (Auto) 1800 (7656-7094) /uL [place] # (Auto) 700 (0-900) /uL Eos # (Auto) 200 (0-450) /uL Baso # (Auto) 0 (0-100) /uL PT 10.5 (9.4-12.5) SECONDS INR 0.9 (0.9-1.3) APTT 28 (25.1-36.5) SECONDS D-Dimer 1044 H (<500) ng/ml Sodium 139 (137-145) mmol/L Potassium 3.8 (3.4-5.1) mmol/L Chloride 103 (98-107) mmol/L Carbon Dioxide 30 (22-32) mmol/L BUN 22 H (7-17) mg/dL Creatinine 0.64 (0.52-1.04) mg/dL Estimated GFR > 60 (>60) mL/min BUN/Creatinine Ratio 34.4 H (6-22) Glucose 108 H (70-99) mg/dL Calcium 9.3 (8.4-10.2) mg/dL Magnesium 1.9 (1.6-2.3) mg/dL Total Bilirubin 0.6 (0.2-1.3) mg/dL AST 34 (14-36) IU/L ALT 20 (<35) IU/L Alkaline Phosphatase 78 (38-126) U/L Total Creatine Kinase 48 (30-135) U/L Troponin I < 0.012 < 0.012 (0.01-0.034) ng/mL Total Protein 6.7 (6.3-8.2) g/dL Albumin 4.2 (3.5-5.0) g/dL Globulin 2.5 (1.7-4.1) g/dL Albumin/Globulin Ratio 1.7 (1.0-2.8) TSH 2.23 (0.47-4.68) uIU/mL Prolactin 14.0 (3.0-18.6) ng/mL Salicylates < 1.0 (<20) mg/dL Acetaminophen < 10 (10-30) ug/mL Blood Type O Positive Antibody Screen Negative ECG Data Interpretation: Sinus rhythm with first-degree AV block. Rate 73. QTC 440. <Presley Gonzalez MD - Last Filed: 05/03/25 09:53> Lab Data Labs: Lab Results 04/20/25 04/20/25 04/20/25 Range/Units 06:00 06:35 08:21 WBC 6.1 (4.5-11.0) X10^3/uL RBC 4.25 (4.0-5.2) X10^6/uL Hgb 13.1 (12.0-16.0) g/dL Hct 39.6 (36-46) % MCV 93.2 (80-100) fL MCH 30.8 (26-34) PG MCHC 33.1 (30-36) % RDW 13.9 (11.6-14.8) % Plt Count 178 (150-400) X10^3/uL Neut % (Auto) 56.3 (50-75) % Lymph % (Auto) 28.8 (25-40) % [place] % (Auto) 11.0 (3-14) % Eos % (Auto) 3.5 (2-4) % Baso % (Auto) 0.4 (0-2) % Neut # (Auto) 3400 (6323-0230) /uL Lymph # (Auto) 1800 (8039-2343) /uL [place] # (Auto) 700 (0-900) /uL Eos # (Auto) 200 (0-450) /uL Baso # (Auto) 0 (0-100) /uL PT 10.5 (9.4-12.5) SECONDS INR 0.9 (0.9-1.3) APTT 28 (25.1-36.5) SECONDS D-Dimer 1044 H (<500) ng/ml Sodium 139 (137-145) mmol/L Potassium 3.8 (3.4-5.1) mmol/L Chloride 103 (98-107) mmol/L Carbon Dioxide 30 (22-32) mmol/L BUN 22 H (7-17) mg/dL Creatinine 0.64 (0.52-1.04) mg/dL Estimated GFR > 60 (>60) mL/min BUN/Creatinine Ratio 34.4 H (6-22) Glucose 108 H (70-99) mg/dL Calcium 9.3 (8.4-10.2) mg/dL Magnesium 1.9 (1.6-2.3) mg/dL Total Bilirubin 0.6 (0.2-1.3) mg/dL AST 34 (14-36) IU/L ALT 20 (<35) IU/L Alkaline Phosphatase 78 (38-126) U/L Total Creatine Kinase 48 (30-135) U/L Troponin I < 0.012 < 0.012 (0.01-0.034) ng/mL Total Protein 6.7 (6.3-8.2) g/dL Albumin 4.2 (3.5-5.0) g/dL Globulin 2.5 (1.7-4.1) g/dL Albumin/Globulin Ratio 1.7 (1.0-2.8) TSH 2.23 (0.47-4.68) uIU/mL Prolactin 14.0 (3.0-18.6) ng/mL Salicylates < 1.0 (<20) mg/dL Acetaminophen < 10 (10-30) ug/mL Blood Type O Positive Antibody Screen Negative Imaging Data CT scan - head: Radiologist's Impression: [address] [address] [address] Scan Report Signed Patient: Dena Stock MR#: [id number] : 1940 Acct:[id number] Age/Sex: 84 / F Date of Service: 04/20/25 Loc: ED Accession Number: [id number] Procedure: CT head/brain wo con Ordering Provider: Nick Islas MD PROCEDURE: CT HEAD/BRAIN WO CON INDICATIONS: fall TECHNIQUE: Noncontrast 4.5 mm thick angled axial sections acquired from the foramen magnum to the vertex, with coronal and sagittal reformats. For radiation dose reduction, the following was used: automated exposure control, adjustment of mA and/or kV according to patient size. COMPARISON: [facility], CT, CT HEAD/BRAIN WO CON, 02/16/2024, 7:18. FINDINGS: Image quality: Diagnostic. CSF spaces: Basal cisterns are patent. No extra-axial fluid collections. The ventricles are symmetric in size and shape. Brain: No intracranial bleeds or mass effect. There is cerebral volume loss, with resultant ventricular and sulcal prominence. There are periventricular and deep white matter chronic small vessel ischemic changes. There is intracranial internal carotid artery atherosclerosis. Skull and face: Right high parietal scalp maurilio. Calvarium and visualized facial bones appear intact, without suspicious lesions. Sinuses: Visualized sinuses and mastoids are clear. IMPRESSION: No evidence acute intracranial process. Comment: Final report is concordant with preliminary interpretation provided by [facility]. Dictated by: Williams Castillo M.D. on 04/20/2025 at 7:08 Approved by: Williams Castillo M.D. on 04/20/2025 at 7:10 CT scan - chest: Radiologist's Impression: [address] [address] [address] Scan Report Signed Patient: Dena Stock MR#: [id number] : 1940 Acct:[id number] Age/Sex: 84 / F Date of Service: 04/20/25 Loc: ED Accession Number: [id number] Procedure: CT angio chest PE protocol Ordering Provider: Presley Gonzalez MD PROCEDURE: CT ANGIO CHEST PE PROTOCOL INDICATIONS: Dyspnea TECHNIQUE: After the administration of intravenous contrast, 2 mm thick sections acquired from the pulmonary apices to the posterior costophrenic angles. 3-dimensional maximum intensity projection (MIP) coronal and sagittal reformats were then acquired through the thorax. For radiation dose reduction, the following was used: automated exposure control, adjustment of mA and/or kV according to patient size. COMPARISON: None. FINDINGS: Image quality: Diagnostic. Pulmonary arteries: Pulmonary arteries are normal in size, and demonstrate no intraluminal filling defects to suggest central pulmonary embolism. Lower Neck: No enlarged lymph nodes. Thyroid: No thyroid nodules which require sonographic follow up, per consensus guidelines. Axillae: No enlarged lymph nodes. Chest Wall: Unremarkable. Bones: Unremarkable. Lungs and Pleura: No pneumothorax or pleural effusions. Advanced destructive emphysema. Mild bibasilar fibrosis. Heart: Heart size is normal. No pericardial effusion. Thoracic Vessels: No aortic aneurysm. Mediastinum and Lakia: No enlarged lymph nodes. Esophagus: No wall thickening. No hiatal hernia. Upper Abdomen: Chronic pancreatitis without ductal dilation. Calcified splenic granuloma. IMPRESSION: No pulmonary embolus. No acute cardiopulmonary process. No displaced fracture or pneumothorax. Advanced destructive emphysema. Dictated by: Robert Kebede M.D. on 04/20/2025 at 7:56 Approved by: Robert Kebede M.D. on 04/20/2025 at 7:59 CT scan - abdomen/pelvis: Radiologist's Impression: [address] [address] [address] Scan Report Signed Patient: Dena Stock MR#: [id number] : 1940 Acct:[id number] Age/Sex: 84 / F Date of Service: 04/20/25 Loc: ED Accession Number: [id number] Procedure: CT abdomen pelvis w con Ordering Provider: Presley Gonzalez MD PROCEDURE: CT ABDOMEN PELVIS W CON INDICATIONS: Abdominal pain TECHNIQUE: After the administration of intravenous contrast, axial sections acquired from the lung bases to the pubic symphysis. Coronal and sagittal reformats were performed. For radiation dose reduction, the following was used: automated exposure control, adjustment of mA and/or kV according to patient size. COMPARISON: None. FINDINGS: Image quality: Diagnostic. Lower Chest: Separately dictated. ABDOMEN: Liver: No solid mass. Gallbladder: Absent. Biliary ducts: No intrahepatic or extrahepatic biliary dilation, accounting for a post cholecystectomy state. Pancreas: No ductal dilation. Calcifications present. No solid mass. Spleen: Size is within normal limits. Calcified granuloma. Adrenal Glands: No adrenal nodules. Kidneys and Ureters: No hydronephrosis. No solid mass. No complex renal cystic lesion which requires follow up. Stomach and Bowel: Normal colonic caliber, without significant wall thickening. Colonic diverticulosis without evidence of diverticulitis. Peritoneum: No abnormal intraperitoneal fluid. No free air. Ventral Wall: Small umbilical hernia containing fat. Abdominal Nodes: No retroperitoneal or mesenteric adenopathy by size criteria. Vessels: Infrarenal aortic aneurysm measuring 6.1 x 5.7 cm. Additionally, there is fissuring of plaque present. PELVIS: Pelvic Organs: Unremarkable. Bladder: No bladder wall thickening, accounting for underdistention. Pelvic Nodes: No enlarged lymph nodes. Miscellaneous: Bilateral inguinal hernias containing fat Bones: No aggressive osseous abnormality. Degenerative disc disease of the lumbar spine. IMPRESSION: Infrarenal aortic aneurysm without rupture or acute aortic syndrome, measuring 6.1 x 5.7 cm. There is aortic plaque fissuring, which has not increased risk of thrombosis and embolization. Recommend vascular surgery consultation. Findings discussed with Dr. Gonzalez at 8:12 a.m. On 04/20/2025. Dictated by: Robert Kebede M.D. on 04/20/2025 at 7:59 Approved by: Robert Kebede M.D. on 04/20/2025 at 8:13 CT - cervical spine: Radiologist's Impression: [address] [address] [address] Scan Report Signed Patient: Dena Stock MR#: [id number] : 1940 Acct:[id number] Age/Sex: 84 / F Date of Service: 04/20/25 Loc: ED Accession Number: [id number] Procedure: CT cervical spine wo con Ordering Provider: Nick Islas MD PROCEDURE: CT CERVICAL SPINE WO CON INDICATIONS: fall TECHNIQUE: Noncontrast 3 mm thick sections acquired from the skull base to the T4 level. Sagittal and coronal reformats were then constructed. For radiation dose reduction, the following was used: automated exposure control, adjustment of mA and/or kV according to patient size. COMPARISON: [facility], CT, CT CERVICAL SPINE WO CON, 02/16/2024, 7:18. FINDINGS: Image quality: Excellent. Bones: No fractures or dislocations. Severe diffuse cervical spondylosis. Multilevel prominent bilateral facet arthropathy. Multilevel uncovertebral joint hypertrophy. Multilevel foraminal narrowing. Visualized superior ribs are intact. Soft tissues: Prevertebral soft tissues are normal in thickness. No paravertebral hematomas. No apical pneumothoraces. Advanced emphysematous change. IMPRESSION: No displaced fracture or traumatic subluxation. Severe cervical spondylosis. Advanced biapical emphysematous change. Comment: Final report is concordant with preliminary interpretation provided by [facility]. Dictated by: Williams Castillo M.D. on 04/20/2025 at 7:10 Approved by: Williams Castillo M.D. on 04/20/2025 at 7:12 [facility] Narrative Medical decision making narrative: April 20, 2025 at 7:[address] Gonzalez: Sign-out from Dr Islas, he has repaired the patient's scalp laceration with maurilio. At this time laboratory studies are pending. CT head is pending. 7:15 a.m.. I spoke with patient and granddaughter at bedside. Granddaughter as a THERAPEUTIC RECREATION DIRECTOR that lives upstairs apartment from patient. Granddaughter states that patient called her right away that she had injured herself and there was blood on the ground. Patient adamantly states that she got up and got disoriented/groggy and sat down on the floor and her head hit the side board of the bed rail. There was no no no loss of consciousness. There was no no syncope. She denies denies any prevent headache chest pain abdominal and back pain. Patient and grandmother state adamantly that this is not uncommon for her to get disoriented when she gets up, she easily falls asleep during the daytime and nighttime. This has been ongoing. Dr. Serina faulkner sees her at home, home visits. Primary care is aware of these episodes of falling asleep easily. Patient states she had gotten up this early to go get coffee for the day. She lives independently for the most part. She is on baseline 3 L nasal cannula oxygen. This is not uncommon. Patient and granddaughter states that her oxygen was on her when the injury occurred. Denies any recent illness fever chills cough cold congestion black or bloody stools. Granddaughter states she has not been drinking very much fluids or water. No recent exertional chest pain dyspnea. No facial droop slurred speech or headaches recently. After history and exam, CT head cervical spine EKG CBC CMP urinalysis IV fluids MDM Medical records reviewed: No recent visit for this complaint Differential considered: Includes but not limited to Lab Test results independently reviewed as above. Pertinent findings: WBC 6.1 hemoglobin 13.1 INR 0.9 sodium 139 potassium 3.8 BUN 22 creatinine 0.64 troponin less than 0.012, D-dimer 1044 Independently reviewed EKG sinus rhythm rate [address] elevation or depression Imaging studies independently reviewed: CT head cervical spine chest x-ray no acute bony abnormality intracranial bleed Consultations: 9:16 a.m.. I spoke with [facility] vascular surgeon, Dr. Vásquez, he has reviewed images studies, likely not source of patient's symptoms today. This is incidental finding but his clinic will reach out and call patient and family for follow up in the clinic. 9:22 a.m., I spoke with [facility] vascular, Dr. Meek, this is incidental finding, patient does not need be transferred or urgent surgery. She can see patient in the clinic. Re-evaluations: 9:30 a.m.. Updated patient and granddaughter results and my discussion with the vascular surgeon that this is incidental finding with the aortic aneurysm. Again patient's symptoms likely due to vasovagal event. Never had abdominal pain back pain or chest pain. She never had syncopal episode. Discussion: Appropriate for discharge home. Patient is grogginess and feeling off balance is not not not new. This is likely the source of her feeling weak this morning and hitting her head. There was no syncope. Likely vasovagal event. Return precautions reviewed with patient and granddaughter. They desire discharge home Diagnosis: Vasovagal event Discharge Plan Departure Patient Disposition: Home Clinical Impression: Vasovagal episode Laceration of skin of scalp Qualifiers: Encounter type: initial encounter Qualified Code(s): S01.01XA - Laceration without foreign body of scalp, initial encounter Instructions: Combating Dizziness in Older Adults, DI for Laceration Repair -- Maur[place], DI for Dizziness-Nonvertigo Activity Restrictions/Additional Instructions: Please see family doctor within a week for re-evaluation. [place] need to be removed in 7 days. You may return here or go to walk-in clinic or family doctor can remove it. Please clean the wound daily with warm soap and water and apply a thin layer of topical antibiotic. You may shower but no submerging of head unaware/swimming. [facility] vascular services will be contacting you for follow up in the clinic regarding the abdominal aneurysm found incidentally today. Return if worse if any questions or concerns. You may continue home medications. Prescriptions: No Action FiberCon 625 MG tablet 2 tab PO BID Qty: 0 (DME) Disabled Parking Permit See Rx Instructions .ROUTE .MEDSUPPLY Qty: 1 0RF Rx Instructions: Valid for 5 years Spiriva with HandiHaler 18 mcg capsule, w/inhalation device 1 cap inhalation QDAY Qty: 90 1RF omeprazole 20 mg capsule,delayed release(DR/EC) 20 mg PO DAILY Qty: 30 6RF budesonide-formoterol 80-4.5 mcg/actuation HFA aerosol inhaler 2 puff inhalation BID Qty: 30.9 1RF albuterol sulfate [Ventolin HFA] 90 mcg/actuation HFA aerosol inhaler 2 puff inhalation Q2HP PRN (Reason: breathing) Qty: 8.5 3RF rosuvastatin 5 mg tablet 5 mg PO DAILY Qty: 90 0RF fluoxetine 40 mg capsule 40 mg PO DAILY Qty: 90 1RF aspirin [Adult Aspirin Regimen] 81 mg tablet,delayed release (DR/EC) 81 mg PO DAILY Qty: 30 5RF gabapentin 300 mg capsule 300 mg PO BID Qty: 180 3RF buspirone 5 mg tablet 5 mg PO BID PRN (Reason: anxiety) Qty: 30 3RF Referrals: Serina Faulkner ARNP [Primary Care Provider, [facility]] Stand Alone Forms: Patient Portal/API ED Sign-out <Nick Islas MD - Last Filed: 04/20/25 06:58> Sign Out Provider Sign Out Attestation: ETHAN: I saw and examined this patient upon arrival. She had fallen and did not seem to clearly recall all the events so I was extremely suspicious of a syncopal episode. The laceration on the top of her scalp was repaired by myself as described in the procedure section of this note. At the time of shift change her chest x-ray and cervical spine CT both come back negative and care was handed off to my colleague at 7:00 a.m..
--- NOTE | 2025-04-20 06:53 | PC.NURSE ---
Pt denies, neck pain, no SOB/CP. Headache only at this time. Specific at the laceration site.
[2025-04-20] MEDS: BACITRACIN OINT 0.9 GM PCKT 1 APPLIC TOP (07:17)
--- NOTE | 2025-04-20 07:21 | DI.CT.S_ITS ---
PROCEDURE: CT ANGIO CHEST PE PROTOCOL INDICATIONS: Dyspnea TECHNIQUE: After the administration of intravenous contrast, 2 mm thick sections acquired from the pulmonary apices to the posterior costophrenic angles. 3-dimensional maximum intensity projection (MIP) coronal and sagittal reformats were then acquired through the thorax. For radiation dose reduction, the following was used: automated exposure control, adjustment of mA and/or kV according to patient size. COMPARISON: None. FINDINGS: Image quality: Diagnostic. Pulmonary arteries: Pulmonary arteries are normal in size, and demonstrate no intraluminal filling defects to suggest central pulmonary embolism. Lower Neck: No enlarged lymph nodes. Thyroid: No thyroid nodules which require sonographic follow up, per consensus guidelines. Axillae: No enlarged lymph nodes. Chest Wall: Unremarkable. Bones: Unremarkable. Lungs and Pleura: No pneumothorax or pleural effusions. Advanced destructive emphysema. Mild bibasilar fibrosis. Heart: Heart size is normal. No pericardial effusion. Thoracic Vessels: No aortic aneurysm. Mediastinum and Lakia: No enlarged lymph nodes. Esophagus: No wall thickening. No hiatal hernia. Upper Abdomen: Chronic pancreatitis without ductal dilation. Calcified splenic granuloma. IMPRESSION: No pulmonary embolus. No acute cardiopulmonary process. No displaced fracture or pneumothorax. Advanced destructive emphysema. Dictated by: Robert Kebede M.D. on 04/20/2025 at 7:56 Approved by: Robert Kebede M.D. on 04/20/2025 at 7:59
--- NOTE | 2025-04-20 07:22 | DI.CT.S_ITS ---
PROCEDURE: CT ABDOMEN PELVIS W CON INDICATIONS: Abdominal pain TECHNIQUE: After the administration of intravenous contrast, axial sections acquired from the lung bases to the pubic symphysis. Coronal and sagittal reformats were performed. For radiation dose reduction, the following was used: automated exposure control, adjustment of mA and/or kV according to patient size. COMPARISON: None. FINDINGS: Image quality: Diagnostic. Lower Chest: Separately dictated. ABDOMEN: Liver: No solid mass. Gallbladder: Absent. Biliary ducts: No intrahepatic or extrahepatic biliary dilation, accounting for a post cholecystectomy state. Pancreas: No ductal dilation. Calcifications present. No solid mass. Spleen: Size is within normal limits. Calcified granuloma. Adrenal Glands: No adrenal nodules. Kidneys and Ureters: No hydronephrosis. No solid mass. No complex renal cystic lesion which requires follow up. Stomach and Bowel: Normal colonic caliber, without significant wall thickening. Colonic diverticulosis without evidence of diverticulitis. Peritoneum: No abnormal intraperitoneal fluid. No free air. Ventral Wall: Small umbilical hernia containing fat. Abdominal Nodes: No retroperitoneal or mesenteric adenopathy by size criteria. Vessels: Infrarenal aortic aneurysm measuring 6.1 x 5.7 cm. Additionally, there is fissuring of plaque present. PELVIS: Pelvic Organs: Unremarkable. Bladder: No bladder wall thickening, accounting for underdistention. Pelvic Nodes: No enlarged lymph nodes. Miscellaneous: Bilateral inguinal hernias containing fat Bones: No aggressive osseous abnormality. Degenerative disc disease of the lumbar spine. IMPRESSION: Infrarenal aortic aneurysm without rupture or acute aortic syndrome, measuring 6.1 x 5.7 cm. There is aortic plaque fissuring, which has not increased risk of thrombosis and embolization. Recommend vascular surgery consultation. Findings discussed with Dr. Gonzalez at 8:12 a.m. On 04/20/2025. Dictated by: Robert Kebede M.D. on 04/20/2025 at 7:59 Approved by: Robert Kebede M.D. on 04/20/2025 at 8:13
[2025-04-20 07:28] LABS: Thyroid Stimulating Hormone 2.23 uIU/mL (0.47-4.68)
[2025-04-20] MEDS: SODIUM CHLORIDE 0.9% 1,000 ML 1000 ML IV (07:52)
--- NOTE | 2025-04-20 07:58 | PC.NURSE ---
Assumed care of pt at 0700. Pt sitting up in bed and a&ox4. Remains on 3L NC. Denies cp, but states she feels SOB but doesn't know if its more than normal due to her COPD.
[2025-04-20 08:49] LABS: Troponin I < 0.012 ng/mL (0.01-0.034)
== END 2025-04-20 09:35 | disposition home or self-care (01) ==
PROVIDERS: Emergency Medicine; Emergency Provider Emergency Medicine; PCP Nurse Practitioner
DX: S01.01XA Laceration without foreign body of scalp, initial encounter (principal); R41.0 Disorientation, unspecified; W18.00XA Striking against unspecified object with subsequent fall, initial encounter; F17.210 Nicotine dependence, cigarettes, uncomplicated; I44.0 Atrioventricular block, first degree; R06.00 Dyspnea, unspecified; R10.9 Unspecified abdominal pain; I71.9 Aortic aneurysm of unspecified site, without rupture; R55 Syncope and collapse
CPT/HCPCS: 12001; 36415; 70450; 71045; 71275; 72125; 74177; 80053; 80329; 82550; 83735; 84146; 84443; 84484; 85025; 85379; 85610; 85730; 86850; 86900; 86901; 93005; 96360; 99285; G0480; Q9967